=== PATIENT | male | born 1945 | race Caucasian/White ===

== ENCOUNTER 2019-11-07 04:53 | Inpatient (IN) | payer MEDICARE, OTHER ==
--- NOTE | 2019-11-07 06:02 | ER Document Report ---
ED General - General Stated Complaint: DIFFICULTY BREATHING,CHILLS,MUSCLE ACHES Time Seen by Provider: 11/07/19 05:02 - HPI Notes: 74-year-old male with no past medical history presents with 1 week of gradual onset gradually worsening shortness of breath associated with diffuse chest pain and myalgia. Patient denies having any cardiac history or cardiac risk factors. History severely limited by patient's acute respiratory failure. Patient satting 60% on arrival with good waveform. - Related Data Allergies/Adverse Reactions: No Known Allergies Allergy (Unverified 11/07/19 06:12) Past Medical History - General Information source: Patient - Social History Smoking Status: Unknown if Ever Smoked Family History: Other - pt unable 2/2 acuity Review of Systems - Review of Systems -: Yes ROS unobtainable due to patient's medical condition Physical Exam - Vital signs Vitals: Resp 42 H 11/07/19 05:02 - Notes Notes: PHYSICAL EXAMINATION: GENERAL: Elderly man appearing younger than stated age in good physical conditioning in severe respiratory distress HEAD: Atraumatic, normocephalic. EYES: Pupils equal round and appropriate constriction, sclera anicteric, conjunctiva are normal. ENT: nares patent, moist mucous membranes. NECK: Normal range of motion, supple without lymphadenopathy LUNGS: Diffuse coarse breath sounds, good air movements, no wheezing, severely tachypneic with accessory muscle use and speaking 1 word at a time HEART: Tachycardic, regular rhythm, no murmurs ABDOMEN: Soft, nontender, no guarding, no masses EXTREMITIES: Normal range of motion, no pitting or edema. No cyanosis. NEUROLOGICAL: Awake, alert, moves all extremities spontaneously. PSYCH: Normal mood, normal affect. SKIN: Normal turgor, diaphoretic Course - Re-evaluation Re-evalutation: 11/07/19 06:02 Patient in severe respiratory distress with no past medical history, presentation highly concerning for COVID pneumonia with respiratory failure, r/o bacterial pneumonia, ACS, APE. All intubation materials ready and set up at bedside, but given that COVID 19 patients have had better outcomes when when avoidng early intubation have trialed patient on BiPAP which has significantly improved his work of breathing. Patient still tachypneic to upper 30s but will continue to closely monitor and are prepared for intubation. Patient accepted to ICU by [facility]. I made sure that patient spoke to his son who was the only person who pt requested to speak to before possibly being intubated or unable to speak. The patient was evaluated during the global COVID-19 pandemic and that diagnosis was suspected/considered upon their initial presentation. Their evaluation, treatment and testing was consistent with current guidelines for patients who present with complaints or symptoms that may be related to COVID-19. 11/07/19 06:23 Patient status remains tenuous but remains improved on BiPAP. Evaluated in ED by ICU [facility] Smith who is bringing him over to ICU now. Patient's son has been updated. - Vital Signs Vital signs: Temp Pulse Resp BP Pulse Ox 97.9 F 101 H 18 110/74 94 11/11/19 05:00 11/11/19 14:05 11/11/19 14:05 11/11/19 14:00 11/11/19 14:05 - Laboratory Result Diagrams: 11/11/19 04:12 11/11/19 04:12 Laboratory results interpreted by me: 11/07/19 11/07/19 11/07/19 06:00 06:00 06:00 WBC 16.1 H RDW 14.5 H Lymph % (Auto) 6.6 L Absolute Neuts (auto) 13.9 H Seg Neutrophils % 86.5 H Carbon Dioxide 14 L Anion Gap 22 H Creatinine 1.52 H Est GFR ( Amer) 55 L Est GFR (MDRD) Non-Af 45 L Glucose 244 H Lactic Acid 10.5 H Total Bilirubin 1.7 H Direct Bilirubin 0.6 H AST 75 H Alkaline Phosphatase 146 H NT-Pro-B Natriuret Pep 11/07/19 06:00 WBC RDW Lymph % (Auto) Absolute Neuts (auto) Seg Neutrophils % Carbon Dioxide Anion Gap Creatinine Est GFR ( Amer) Est GFR (MDRD) Non-Af Glucose Lactic Acid Total Bilirubin Direct Bilirubin AST Alkaline Phosphatase NT-Pro-B Natriuret Pep 88207 H - EKG Interpretation by Me Additional EKG results interpreted by me: 11/07/19 05:25 Heart rate 125, sinus tachycardia, diffuse ST depressions, no significant ST e levations, QTc 427 11/07/19 06:20 Repeat EKG, heart rate 122, sinus tachycardia, diffuse ST depressions no significant change from initial EKG Critical Care Note - Critical Care Note Total time excluding time spent on procedures (mins): 40 - Time spent performing numerous reassessments of patient in severe acute respiratory distress Discharge - Discharge Clinical Impression: Pneumonia due to COVID-19 virus Respiratory failure Qualifiers: Chronicity: acute Respiratory failure complication: hypoxia Qualified Code(s): J96.01 - Acute respiratory failure with hypoxia Disposition: ADMITTED INPATIENT Admitting Provider: Osito ([employer] Transfer [employer]) Unit Admitted: ICU
[2019-11-07 06:31] LABS: ABSOLUTE BASOPHILS # (AUTO) 0.1 10^3/uL (0.0-0.2); ABSOLUTE LYMPHOCYTES (AUTO) 1.1 10^3/uL (0.5-4.7); ABSOLUTE NEUT (AUTO) 13.9 10^3/uL (1.7-8.2); BASOPHILS % (AUTO) 0.6 % (0-2); EOSINOPHILS % (AUTO) 0.1 % (0-6); HEMATOCRIT 50.4 % (37.9-51.0); HEMOGLOBIN 16.5 g/dL (13.5-17.0); LYMPHOCYTES % (AUTO) 6.6 % (13-45); MEAN CORPUSCULAR HEMOGLOBIN 31.3 pg (27.0-33.4); MEAN CORPUSCULAR HGB CONC 32.7 g/dL (32.0-36.0); MEAN CORPUSCULAR VOLUME 96 fl (80-97); MONOCYTES % (AUTO) 6.2 % (3-13); PLATELET COUNT 172 10^3/uL (150-450); RED BLOOD COUNT 5.28 10^6/uL (4.35-5.55); RED CELL DISTRIBUTION WIDTH 14.5 % (11.5-14.0); SEGMENTED NEUTROPHILS % (AUTO) 86.5 % (42-78); TOTAL CELLS COUNTED % (AUTO) 100 %; WHITE BLOOD COUNT 16.1 10^3/uL (4.0-10.5)
--- NOTE | 2019-11-07 06:33 | RADIOLOGY REPORT (SQ) ---
EXAM DESCRIPTION: XR CHEST 1 VIEW COMPLETED DATE/TME: 11/07/2019 05:25 CLINICAL HISTORY: 74 years, Male, CHF COMPARISON: None. NUMBER OF VIEWS: 1 TECHNIQUE: Portable chest LIMITATIONS: None. FINDINGS: The heart size is normal. Osteopenia. Interstitial and airspace opacities bilaterally. No pneumothorax IMPRESSION: Mixed interstitial and airspace opacities bilaterally could reflect pulmonary edema or pneumonia copyright 2011 [employer]- All Rights Reserved
[2019-11-07 06:48] LABS: ALBUMIN 4.2 g/dL (3.5-5.0); ALKALINE PHOSPHATASE 146 U/L (38-126); ASPARTATE AMINO TRANSFERASE 75 U/L (17-59); BILIRUBIN,DIRECT 0.6 mg/dL (0.0-0.4); BILIRUBIN,TOTAL 1.7 mg/dL (0.2-1.3); BLOOD UREA NITROGEN 18 mg/dL (7-20); CALCIUM 9.2 mg/dL (8.4-10.2); GLUCOSE 244 mg/dL (75-110); TOTAL PROTEIN 7.4 g/dL (6.3-8.2)
[2019-11-07 06:53] LABS: CARBON DIOXIDE 14 mmol/L (22-30); CHLORIDE 103 mmol/L (98-107)
[2019-11-07 06:55] LABS: ANION GAP 22 (5-19)
[2019-11-07 07:03] LABS: TROPONIN I 2.06 ng/mL
[2019-11-07 07:09] LABS: ARTERIAL BLOOD FIO2 100%; ARTERIAL BLOOD H2CO3 0.84 mmol/L (1.05-1.35); ARTERIAL BLOOD HCO3 12.9 mmol/L (20-24); ARTERIAL BLOOD O2 SATURATION 97.3 % (94-98); ARTERIAL BLOOD PH 7.28 (7.35-7.45); ARTERIAL BLOOD TOTAL CO2 13.7 mmol/L (23-27)
--- NOTE | 2019-11-07 07:27 | EKG REPORT ---
SEVERITY:- ABNORMAL ECG - SINUS TACHYCARDIA PROBABLE LEFT ATRIAL ABNORMALITY NONSPECIFIC INTRAVENTRICULAR CONDUCTION DELAY LOW VOLTAGE IN FRONTAL LEADS ST DEPRESSION, CONSIDER ISCHEMIA, LAT LEADS : Confirmed by: Ashutosh Haque MD 07-Nov-2019 07:25:59
--- NOTE | 2019-11-07 07:27 | EKG REPORT ---
SEVERITY:- ABNORMAL ECG - SINUS TACHYCARDIA PROBABLE LEFT ATRIAL ABNORMALITY NONSPECIFIC INTRAVENTRICULAR CONDUCTION DELAY ST DEPRESSION, CONSIDER ISCHEMIA, LAT LEADS : Confirmed by: Ashutosh Haque MD 07-Nov-2019 07:26:50
--- NOTE | 2019-11-07 07:47 | CRITICAL CARE ADMISSION REPORT ---
HPI Date:: 11/07/19 Time:: 07:15 Reason for ICU Reason:: Respiratory failure, pneumonia Admission Date/Time & PCP: Admission Date/Time: 11/07/19 06:22 Primary Care Provider: VALARIE: Mr. Bernal is a 74-year-old gentleman with no known past medical history other than tobacco abuse of 1 pack/day since childhood as per his son. He has been active and independent and cares for his ailing . Patient developed short ness of breath, diffuse chest pain and myalgia over the past 24 hours and presented to the emergency department. SPO2 upon arrival was 60%. He was placed on BiPAP and has since dramatically improved his oxygenation (FiO2 100%). I was called by the emergency room physician to evaluate Mr. Bernal for possible admission to the intensive care unit. Chest x-ray shows bilateral patchy opacities consistent with pneumonia. Chest x-ray has similar pattern to that of previous COVID-19 patients. He has been admitted to the intensive care unit for acute hypoxemic respiratory failure in the setting of pneumonia possibly related to COVID-19. History obtained from:: Patient, son, emergency room physician. - Diagnosis/Plan (1) Pneumonia due to COVID-19 virus Is this a current diagnosis for this admission?: Yes Plan: Chest x-ray, symptoms and history consistent with COVID-19 viral pneumonia. Elevated lactic acid level possibly related to profound hypoxemia which was corrected just prior to lab draw. -Rapid test for COVID-19 -Repeat labs late this morning to re-evaluate. -WBC only mildly elevated. Although I believe his lactic acid level and elevated troponins are likely due to demand hypoxemia, we will begin fluids while awaiting repeat labs. Patient remains hemodynamically stable. (2) Respiratory failure Qualifiers: Chronicity: acute Respiratory failure complication: hypoxia Qualified Code(s): J96.01 - Acute respiratory failure with hypoxia Is this a current diagnosis for this admission?: Yes Plan: Continue BiPAP: IPAP 16, EPAP 5. Fi02 currently at 100%. Wean as tolerated to maintain SPO2 between 88 and 95%. When able to wean to 40 to 50% FiO2, we will transition to facemask or nasal cannula. Repeat CXR in AM. Repeat ABG this evening. Past Medical History Medical History: None Psychiatric Medical History: Denies: Depression Social/Family History - Social History Smoking Status: Current Every Day Smoker Cigarettes Packs Per Day: 1 Hx Recreational Drug Use: No Drugs: None - Medication/Allergies Allergies/Adverse Reactions: No Known Allergies Allergy (Unverified 11/07/19 06:12) Review of Systems Constitutional: PRESENT: fatigue, weakness Respiratory: PRESENT: cough, dyspnea, other - Pleuritic chest pain Physical Exam Vital Signs: Temp Pulse Resp BP Pulse Ox 98 F 130 H 52 H 141/108 H 98 11/07/19 06:57 11/07/19 06:57 11/07/19 06:57 11/07/19 06:57 11/07/19 06:57 Intake & Output 11/06/19 11/07/19 11/08/19 06:59 06:59 06:59 Weight 74 kg Weight/Height Weight 74 kg Height 5 ft 9 in General appearance: PRESENT: mild distress Head exam: PRESENT: atraumatic, normocephalic Eye exam: PRESENT: EOMI, PERRLA Ear exam: PRESENT: normal external ear exam. ABSENT: drainage Mouth exam: PRESENT: dry mucosa, neck supple Neck exam: PRESENT: full ROM. ABSENT: JVD Respiratory exam: PRESENT: decreased breath sounds, rhonchi, symmetrical. ABSENT: accessory muscle use Cardiovascular exam: PRESENT: RRR, +S1, +S2 Pulses: PRESENT: normal carotid pulses, +2 pedal pulses bilateral GI/Abdominal exam: PRESENT: normal bowel sounds. ABSENT: ascites, distended Extremities exam: PRESENT: full ROM. ABSENT: pedal edema Musculoskeletal exam: PRESENT: ambulatory, full ROM, normal inspection Neurological exam: PRESENT: alert, altered, awake, oriented to person, oriented to place, oriented to time, oriented to situation, CN II-XII grossly intact. ABSENT: motor sensory deficit Psychiatric exam: PRESENT: appropriate affect Skin exam: PRESENT: intact. ABSENT: skin tears Laboratory/Radiographs Laboratory Results: 11/07/19 06:00 11/07/19 06:00 11/07/19 11/07/19 11/07/19 06:00 06:00 06:00 WBC 16.1 H RBC 5.28 Hgb 16.5 Hct 50.4 MCV 96 MCH 31.3 MCHC 32.7 RDW 14.5 H Plt Count 172 Seg Neutrophils % 86.5 H Carbonic Acid HCO3/H2CO3 Ratio ABG pH ABG pCO2 ABG pO2 ABG HCO3 ABG O2 Saturation ABG Base Excess FiO2 Sodium 138.6 Potassium 4.0 Chloride 103 Carbon Dioxide 14 L Anion Gap 22 H BUN 18 Creatinine 1.52 H Est GFR ( Amer) 55 L Glucose 244 H Lactic Acid 10.5 H Calcium 9.2 Total Bilirubin 1.7 H AST 75 H Alkaline Phosphatase 146 H Total Protein 7.4 Albumin 4.2 11/07/19 06:40 WBC RBC Hgb Hct MCV MCH MCHC RDW Plt Count Seg Neutrophils % Carbonic Acid 0.84 L HCO3/H2CO3 Ratio 15:1 ABG pH 7.28 L ABG pCO2 28.0 L ABG pO2 106.0 H ABG HCO3 12.9 L ABG O2 Saturation 97.3 ABG Base Excess -12.0 FiO2 100% Sodium Potassium Chloride Carbon Dioxide Anion Gap BUN Creatinine Est GFR ( Amer) Glucose Lactic Acid Calcium Total Bilirubin AST Alkaline Phosphatase Total Protein Albumin 11/07/19 06:00 Troponin I 2.060 NT-Pro-B Natriuret Pep 13575 H Impressions: Chest X-Ray 11/07/19 05:25 IMPRESSION: Mixed interstitial and airspace opacities bilaterally could reflect pulmonary edema or pneumonia copyright 2011 [employer]- All Rights Reserved All labs, radiographs, diagnostic studies and EKGs were personally reviewed: Yes In addition, reports of radiographic and diagnostic studies were read: Yes Critical Time Critical Time (minutes): 65 -: The care of a critically ill patient is dynamic. This note represents a static moment in the admission process. Orders and treatments may be given simultaneously and urgently, and time is not parts sales representative of the treatment process. This patient requires Critical Care secondary to life threatening organ or limb dysfunction. Without Critical Care services, the patient is at risk for increased mortality and morbidity.
[2019-11-07] MEDS ORDERED: RINGERS SOLUTION,LACTATED 1,000 ML IV ONE ×2 (07:54→20:19)
[2019-11-07] MEDS: RINGERS SOLUTION,LACTATED 1,000 ML IV PRN ×2 (09:44→20:26)
[2019-11-07] MEDS ORDERED: SUCCINYLCHOLINE CHLORIDE INJ 200 MG/10 ML VIAL ONE (10:05)
[2019-11-07] MEDS ORDERED: ETOMIDATE INJ/PF 20 MG/10 ML SDV IV ONE (10:05)
[2019-11-07] MEDS ORDERED: METOPROLOL TARTRATE PF/INJ 5 MG/5 ML SDV IV PRN (12:35)
[2019-11-07] MEDS ORDERED: METOPROLOL TARTRATE PF/INJ 5 MG/5 ML SDV IV ONE (12:35)
[2019-11-07] MEDS ORDERED: EPINEPHRINE INJ/PF 1 MG/1 ML AMPULE ONE (12:43)
[2019-11-07] MEDS: DEXAMETHASONE SOD PHOSPHATE INJ 4 MG/1 ML VIAL IV SCH ×3 (12:43→23:15)
[2019-11-07] MEDS ORDERED: NORMAL SALINE 1000 ML 1,000 ML IV ONE (13:45)
[2019-11-07] MEDS ORDERED: HEPARIN SOD (PORCINE) 5,000 UNIT/ML 1 ML VIAL SUBCUT SCH (14:00)
[2019-11-07 15:25] LABS: ARTERIAL BLOOD BASE EXCESS -7.5 mmol/L; ARTERIAL BLOOD FIO2 100%; ARTERIAL BLOOD HCO3 15.6 mmol/L (20-24); ARTERIAL BLOOD O2 SATURATION 98.7 % (94-98); ARTERIAL BLOOD PCO2 26.6 mmHg (35-45); ARTERIAL BLOOD PH 7.39 (7.35-7.45); ARTERIAL BLOOD PO2 135.1 mmHg (80-100); ARTERIAL BLOOD TOTAL CO2 16.4 mmol/L (23-27)
--- NOTE | 2019-11-07 16:31 | XCELERA REPORT ---
[address] [address] Transthoracic Echocardiogram Report Name: FCO ALMAGUER Age: 74 yrs Gender: Male : 1945 Patient Status: Inpatient Patient Location: ICU^603^A Study Date: 11/07/2019 12:40 PM Height: 69 in Weight: 160 lb BSA: 1.9 m2 Procedure: A two-dimensional transthoracic echocardiogram with color flow and Doppler was performed. The study was technically limited with all images being suboptimal in quality. Images were not obtained from all of the standard acoustic windows due to the limited scope of the study. Reason For Study: change in ECG w/ elevated troponin. History: Abnormal EKG / Elevated Troponin. Ordering Physician: NAM SANTOS Performed By: Aleyda Vásquez Interpretation Summary A two-dimensional transthoracic echocardiogram with color flow and Doppler was performed. The study was technically limited with all images being suboptimal in quality. Images were not obtained from all of the standard acoustic windows due to the limited scope of the study. The left ventricle is normal in size. There is normal left ventricular wall thickness. No 'True apical 2 chamber views' obyained..Hence cannot comment on the piacal and basal inferior wall, and the apical and Basal anterior dutton.The Mid LV dutton,the IVS,anterosetum and lateral dutton contract normally.In limited views LVEF is greater than 65%. Doppler measurements suggest normal left ventricular diastolic function There is no thrombus. No ASD ,VSD or PFO seen. The right ventricle is moderately dilated. The right ventricular systolic function is mild to moderately reduced. The right atrium is mild to moderately dilated. The left atrium is mildly dilated. There is no evidence of mitral valve prolapse. There is no vegetation seen on the mitral valve. There is no mitral valve stenosis. Eccentric posteriorly directed moderate MR. There is no aortic valvular vegetation. There is no aortic valve stenosis There is no LVOT obstruction. No aortic regurgitation is present. There is no tricuspid stenosis. There is a moderate to severe amount of tricuspid regurgitation There is servere pulmonary hypertension by echo RVSP is at least 75 mm og Hg , with atleast RA mean of 20. The pulmonic valve is not well visualized. There is no pulmonic valvular stenosis. There is no pulmonic valvular regurgitation. The inferior vena cava appeared dilated and did not change with respiration (RAP > 20 mmHg) There is no pericardial effusion. MMode/2D Measurements & Calculations RVDd: 2.3 cm LVIDd: 4.8 cm FS: 29.5 % Ao root diam: 2.3 cm IVSd: 0.94 cm LVIDs: 3.4 cm EDV(Teich): 105.3 ml Ao root area: 4.0 cm2 LVPWd: 1.0 cm ESV(Teich): 46.0 ml EF(Teich): 56.3 % Doppler Measurements & Calculations MV E max marcial: MV V2 max: MV dec slope: Ao V2 max: 127.6 cm/sec 327.5 cm/sec 1016 cm/sec2 68.3 cm/sec MV A max marcial: MV max PG: MV dec time: Ao max P.5 cm/sec 42.9 mmHg 0.13 sec 2.1 mmHg MV E/A: 3.0 MV V2 mean: 261.4 cm/sec MV mean P.7 mmHg MV V2 VTI: 71.6 cm LV V1 max PG: PA V2 max: TR max marcial: 0.75 mmHg 55.3 cm/sec 321.3 cm/sec LV V1 max: PA max P.2 mmHgTR max P.3 mmHg 43.2 cm/sec Left Ventricle The left ventricle is normal in size. There is normal left ventricular wall thickness. No 'True apical 2 chamber views' obyained..Hence cannot comment on the piacal and basal inferior wall, and the apical and Basal anterior dutton.The Mid LV dutton,the IVS,anterosetum and lateral dutton contract normally.In limited views LVEF is greater than 65%. Doppler measurements suggest normal left ventricular diastolic function. There is no thrombus. No ASD ,VSD or PFO seen. Right Ventricle The right ventricle is moderately dilated. The right ventricular systolic function is mild to moderately reduced. Atria The right atrium is mild to moderately dilated. The left atrium is mildly dilated. Mitral Valve There is no evidence of mitral valve prolapse. There is no vegetation seen on the mitral valve. There is no mitral valve stenosis. Eccentric posteriorly directed moderate MR. Aortic Valve There is no aortic valvular vegetation. There is no aortic valve stenosis. There is no LVOT obstruction. No aortic regurgitation is present. Tricuspid Valve There is no tricuspid stenosis. There is a moderate to severe amount of tricuspid regurgitation. There is servere pulmonary hypertension by echo. RVSP is at least 75 mm og Hg , with atleast RA mean of 20. Pulmonic Valve The pulmonic valve is not well visualized. There is no pulmonic valvular stenosis. There is no pulmonic valvular regurgitation. Great Vessels The aortic root is not well visualized but is probably normal size. The inferior vena cava appeared dilated and did not change with respiration (RAP > 20 mmHg). Effusions There is no pericardial effusion. : NAM SANTOS, Hannah
[2019-11-07] MEDS ORDERED: DILTIAZEM HCL/D5W 125 MG/125 ML RTUINJ IV ONE (16:55)
[2019-11-07] MEDS ORDERED: DILTIAZEM HCL INJ 25 MG/5 ML VIAL ONE (16:55)
[2019-11-07] MEDS ORDERED: LORAZEPAM INJ 2 MG/1 ML VIAL ONE (17:02)
[2019-11-07 17:21] LABS: APPEARANCE,URINE CLOUDY; BILIRUBIN,URINE NEGATIVE (NEGATIVE); COLOR,URINE AMBER; GLUCOSE, URINE 50 mg/dL (NEGATIVE); KETONES,URINE TRACE mg/dL (NEGATIVE); LEUKOCYTE ESTERASE,URINE NEGATIVE (NEGATIVE); NITRITE,URINE NEGATIVE (NEGATIVE); PROTEIN,URINE 100 mg/dL (NEGATIVE); URINE SPECIFIC GRAVITY 1.019
[2019-11-07] MEDS ORDERED: DILTIAZEM HCL/D5W 125 MG/125 ML RTUINJ IV PRN (17:22)
[2019-11-07] MEDS ORDERED: DILTIAZEM HCL INJ 25 MG/5 ML VIAL IV ONE (17:30)
[2019-11-07] MEDS ORDERED: LORAZEPAM INJ 2 MG/1 ML VIAL IV ONE (17:30)
[2019-11-07] MEDS ORDERED: DIGOXIN INJ 0.5 MG/2 ML AMPULE ONE (17:41)
[2019-11-07] MEDS ORDERED: ENOXAPARIN SODIUM INJ 80 MG/0.8 ML DISP.SYRIN SUBCUT SCH ×2 (17:45→23:00)
[2019-11-07] MEDS ORDERED: DIGOXIN INJ 0.5 MG/2 ML AMPULE IV ONE (18:00)
[2019-11-07] MEDS ORDERED: VANCOMYCIN HCL 0 MG in DEXTROSE 5%-WATER 250 ML IV NR (19:15)
[2019-11-07 19:27] LABS: PROTHROMBIN TIME 17.3 SEC (11.4-15.4)
[2019-11-07 19:28] LABS: PARTIAL THROMBOPLASTIN TIME 33.6 SEC (23.5-35.8)
--- NOTE | 2019-11-07 19:50 | PDOC CONSULTATION ---
Consultation-Blank Consultation: CARDIOLOGY CONSULTATION by Dr. Hannah Fowler on 11/07/2019. Patient seen at 3 PM. 60 minutes spent on this patient with more than 50% time spent in direct patient care REASON FOR CONSULTATION: Patient admitted with pneumonia with elevated troponin I and tachycardia CONSULT REQUESTING all PHYSICIAN: Dr. Escalante, earth moving technician. HISTORY OF PRESENT ILLNESS: Patient is a pleasant 74-year-old male with no major medical history of concern in the past who is an ongoing smoker and probably has untreated COPD who was taking care of his sick . He states that 24 hours prior to admission he had sudden onset of shortness of breath with cough productive of yellowish sputum with wheezing and some chest pain which increased with deep breathing. He was brought to the emergency room where he was found to be hypoxic with O2 sats in the 60s. Subsequent to being placed on BiPAP and FiO2 of 100% his O2 sats improved. He does have some EKG changes which showed generalized ischemia and tachycardia. His initial troponin I will be came back abnormal and subsequently brenton to 6. He also had a short run of junctional tachycardia. He also was hypotensive requiring IV fluids. His blood pressure did come up to about 110 and the patient was given 5 mg of Cardizem and started on a Cardizem drip at 2.5 mg/h. The patient states a chest x-ray is suspicious of COVID pneumonia and the patient's COVID testing is awaited. Along with the patient's fever and shortness of breath he had myalgia and generalized fatigue and malaise and sore throat, but no POSITIVE lost sensation of smell or taste. His echocardiogram showed normal left ventricular systolic function of the left ventricle and severe pulmonary hypertension with right ventricular systolic pressure of at least 75 mmHg. He has moderate to severe tricuspid regurgitation and eccentric moderate mitral regurgitation. The patient denies any prior history of OK or anginal symptoms. Although he denies any history of chronic kidney disease the patient's GFR is reduced to 45 mL/min which could be secondary to the patient being volume depleted due to acute infection. Past Medical History Medical History: None Psychiatric Medical History: Denies: Depression Social/Family History - Social History Smoking Status: Current Every Day Smoker Cigarettes Packs Per Day: 1 Hx Recreational Drug Use: No Drugs: None Current Medications Generic Name Dose Route Start Last Admin Trade Name Freq PRN Reason Stop Dose Admin Dexamethasone Sodium Phosphate 4 mg 08/06/20 12:00 11/07/19 23:15 Decadron Inj 4 Mg/Ml Vial IV 12/07/19 11:59 4 mg Q6 GENOVEVA Administration Enoxaparin Sodium 75 mg 11/07/19 23:00 11/07/19 23:12 Lovenox Inj 80 Mg/0.8 Ml Disp.Syrin SUBCUT 12/07/19 22:59 75 mg DAILY@2300 GENOVEVA Administration Lactated Ringer's 1,000 mls @ 100 mls/hr 11/07/19 07:54 11/07/19 20:26 Lactated Ringers 1000 Ml Iv Soln IV 12/07/19 07:53 100 mls/hr CONTINUOUS PRN Administration THIS MED IS NOT "PRN" Diltiazem HCl 125 mg in 125 mls @ 0 mls/hr 11/07/19 17:22 11/07/19 22:40 Cardizem Rtu Inj 125 Mg-D5w 125 Ml Premix IV 12/07/19 17:21 0 mg/hr CONTINUOUS PRN 0 mls/hr THIS MED IS NOT "PRN" Titration Protocol Titrate Piperacillin Sod/Tazobactam 100 mls @ 200 mls/hr 11/07/19 19:30 11/07/19 23:47 Sod 3.375 gm/ Sodium Chloride IV 11/14/19 19:29 200 mls/hr Q6 GENOVEVA 200 mls/hr Administration Vancomycin HCl 1,250 mg/ 250 mls @ 166.667 mls/hr 11/07/19 22:00 11/07/19 23:27 Dextrose IV 11/14/19 21:59 Infused QHS GENOVEVA Infusion Metoprolol Tartrate 5 mg 11/07/19 12:35 Lopressor Inj/Pf 5 Mg/5 Ml Sdv IV 12/07/19 12:34 Q2HP PRN HR > 120. Sodium Chloride 2.5 ml 11/07/19 14:00 11/07/19 21:56 Saline Flush 2.5 Ml Monoject Prefil Syrin IV 12/07/19 13:59 2.5 ml Q8 GENOVEVA Administration Discontinued Medications Generic Name Dose Route Start Last Admin Trade Name Freq PRN Reason Stop Dose Admin Digoxin Confirm 11/07/19 17:41 11/07/19 18:07 Lanoxin Inj 0.5 Mg/2 Ml Ampule Administered 11/07/19 17:42 Not Given Dose 0.5 mg .ROUTE .STK-MED ONE Digoxin 0.125 mg 11/07/19 18:00 11/07/19 18:00 Lanoxin Inj 0.5 Mg/2 Ml Ampule IV 11/07/19 18:01 0.125 mg NOW ONE Administration Diltiazem HCl Confirm 11/07/19 16:55 11/07/19 17:34 Cardizem Inj 25 Mg/5 Ml Vial Administered 11/07/19 16:56 Not Given Dose 25 mg .ROUTE .STK-MED ONE Diltiazem HCl 5 mg 11/07/19 17:30 11/07/19 16:59 Cardizem Inj 25 Mg/5 Ml Vial IV 11/07/19 17:31 5 mg NOW ONE Administration Enoxaparin Sodium 75 mg 11/07/19 17:45 11/07/19 20:16 Lovenox Inj 80 Mg/0.8 Ml Disp.Syrin SUBCUT 12/07/19 17:44 Not Given DAILY GENOVEVA Epinephrine HCl Confirm 11/07/19 12:43 11/07/19 16:46 Epinephrine-Pf Inj 1 Mg/Ml (1:1000) Ampule Administered 11/07/19 12:44 Not Given Dose 1 mg .ROUTE .STK-MED ONE Etomidate 20 mg 11/07/19 10:05 Amidate Inj/Pf 20 Mg/10 Ml Sdv IV 11/07/19 10:06 .STK-MED ONE Heparin Sodium (Porcine) 5,000 unit 11/07/19 14:00 11/07/19 16:45 Heparin Inj 5,000 Units/Ml 1 Ml Vial SUBCUT 12/07/19 13:59 5,000 unit Q8 GENOVEVA Administration Lactated Ringer's 1,000 mls @ 0 mls/hr 11/07/19 07:54 11/07/19 10:45 Lactated Ringers 1000 Ml Iv Soln IV 11/07/19 07:55 Infused BOLUS ONE Infusion Wide Open Sodium Chloride 1,000 mls @ 0 mls/hr 11/07/19 13:45 11/07/19 13:55 Nacl 0.9% 1000 Ml Iv Soln IV 11/07/19 13:46 Infused BOLUS ONE Infusion Wide Open Diltiazem HCl Confirm 11/07/19 16:55 11/07/19 17:34 Cardizem Rtu Inj 125 Mg-D5w 125 Ml Premix Administered 11/07/19 16:56 Not Given Dose 125 mg in 125 mls @ ud IV .STK-MED ONE Lactated Ringer's 1,000 mls @ 0 mls/hr 11/07/19 20:19 11/07/19 21:41 Lactated Ringers 1000 Ml Iv Soln IV 11/07/19 20:20 Infused BOLUS ONE Infusion Wide Open Lorazepam Confirm 11/07/19 17:02 11/07/19 17:35 Ativan Inj 2 Mg/1 Ml Vial Administered 11/07/19 17:03 Not Given Dose 2 mg .ROUTE .STK-MED ONE Lorazepam 0.5 mg 11/07/19 17:30 11/07/19 17:07 Ativan Inj 2 Mg/1 Ml Vial IV 11/07/19 17:31 0.5 mg NOW ONE Administration Metoprolol Tartrate 5 mg 11/07/19 12:35 11/07/19 12:40 Lopressor Inj/Pf 5 Mg/5 Ml Sdv IV 11/07/19 12:36 Not Given NOW ONE Succinylcholine Chloride 200 mg 11/07/19 10:05 Anectine Inj 200 Mg/10 Ml Vial .ROUTE 11/07/19 10:06 .STK-MED ONE - Medication/Allergies Allergies/Adverse Reactions: No Known Allergies Allergy (Unverified 11/07/19 06:12) RESUSCITATION STATUS: Patient is a full code. The patient's son is a surrogate healthcare decision maker. Review of Systems Constitutional: PRESENT: fatigue, weakness Respiratory: PRESENT: cough, dyspnea, other - Pleuritic chest pain head: No history of headaches or head injury. EYES: No history of amblyopia diplopia. No history of amaurosis fugax. EARS: No history of vertigo. The patient states that he is slightly hard of hearing in the right ear. Left left ear hearing is normal. NOSE: No history of hayfever. No history of nosebleeds. MOUTH: Patient says he is thirsty there is no altered taste sensation. There is no bleeding from the gums. THROAT: There is no odynophagia or dysphagia. SKIN: There is no skin rashes. There is no petechia or ecchymosis there is no pruritus or yellowish discoloration of the skin. NECK: There is no neck pain or neck stiffness. LUNGS: The patient has cough and dyspnea as mentioned earlier with wheezing and productive cough. There is no prior history of treatment for COPD although physical examination suggest COPD. He has no sick sleep apnea. No history of pulmonary embolism. CARDIAC: No history of hypertension or hyperlipidemia. No history of OK or anginal symptoms. No prior history of cardiac arrhythmia. No leg edema he does have orthopnea but no PND. Denies palpitations. ENDOCRINE: No history of diabetes mellitus or thyroid disease no history of polydipsia polyuria. No history of heat or cold intolerance. RENAL: No prior history of chronic kidney disease. With the patient's renal function is compromised most likely secondary to volume depletion/prerenal state. No hematuria pyuria or dysuria. No symptoms suggestive UTI. CARE MGR: No history of TIA CVA. No history of headaches or migraines or seizures. VASCULAR: No history of calf or buttock claudication. No history of DVT. HEMATOLOGICAL: No history of bleeding bleeding dyscrasias. No history of clotting disorders. GI: No history of GERD. No history of GI bleed. No history of fatty food intolerance. Denies abdominal pain. No history of hepatitis or cirrhosis. PHYSICAL EXAMINATION: The patient is a frail build but appears to be well- nourished. He is on the BiPAP at present he is mild to moderate respiratory difficulty. Selected Entries 11/07/19 11/07/19 11/07/19 14:45 15:27 16:50 Heart Rate ( 94 Monitors) Respiratory 25 H Rate Blood Pressure 91/80 L Blood Pressure 83 Mean O2 Sat by Pulse 100 Oximetry Fraction of 100 100 Inspired Oxygen (FIO2) 11/07/19 11/07/19 16:51 16:52 Heart Rate ( 140 Monitors) Respiratory 36 H Rate Blood Pressure 112/86 H Blood Pressure 94 Mean O2 Sat by Pulse 95 Oximetry Fraction of Inspired Oxygen (FIO2) Head: Is atraumatic normocephalic. EYES: Pupils are equal round regular reactiv e light and accommodation. ENT is negative. Neck. Supple. There is there is no JVD. Carotids are equal there is no bruits. There is no lymphadenopathy. Lungs: There is no accessory muscle respiration use. Trachea central. There is a few dry coarse crackles in the right mid zone. There is diminished air entry and prolonged expiration. There is no rales of CHF. On percussion there is hyp erresonance. HEART: S1-S2 is heard. There is no S3 gallop. There is no S4 gallop.. Systolic murmur left sternal border and the apex there is no rub. There is murmur of mitral regurgitation tricuspid regurgitation present. There is no aortic stenosis murmur. ABDOMEN: Soft. Nontender there is no hepatosplenomegaly. Bowel sounds are well heard. EXTREMITIES: Femorals are well felt. Leg pulses well felt. There is no pedal edema. There is no femoral bruits. There is no cyanosis or clubbing. There is no DVT or cellulitis. There is no calf tenderness. CARE MGR: The patient is conscious awake alert oriented x3 with no focal deficits. PSYCHIATRIC: The patient judgment insight are intact his affect is normal. The patient's initial EKG shows sinus tachycardia with PVCs and APCs. Diffuse ST depressions is consistent with ischemia. Subsequent EKG shows sinus tachycardia with diffuse ST depression consistent with ischemia. The patient's third EKG shows sinus rhythm nonspecific T changes inferior leads. Labs- Entire Visit 11/07/19 11/07/19 11/07/19 06:00 06:00 06:00 WBC 16.1 H RBC 5.28 Hgb 16.5 Hct 50.4 MCV 96 MCH 31.3 MCHC 32.7 RDW 14.5 H Plt Count 172 Lymph % (Auto) 6.6 L Wallace % (Auto) 6.2 Eos % (Auto) 0.1 Baso % (Auto) 0.6 Absolute Neuts (auto) 13.9 H Absolute Lymphs (auto) 1.1 Absolute Monos (auto) 1.0 Absolute Eos (auto) 0.0 Absolute Basos (auto) 0.1 Seg Neutrophils % 86.5 H PT INR APTT Carbonic Acid HCO3/H2CO3 Ratio ABG pH ABG pCO2 ABG pO2 ABG HCO3 ABG Total CO2 ABG O2 Saturation ABG Base Excess FiO2 Sodium 138.6 Potassium 4.0 Chloride 103 Carbon Dioxide 14 L Anion Gap 22 H BUN 18 Creatinine 1.52 H Est GFR ( Amer) 55 L Est GFR (Non-Af Amer) Est GFR (MDRD) Non-Af 45 L Glucose 244 H Lactic Acid 10.5 H Calcium 9.2 Total Bilirubin 1.7 H Direct Bilirubin 0.6 H Neonat Total Bilirubin Not Reportable Neonat Direct Bilirubin Not Reportable Neonat Indirect Bili Not Reportable AST 75 H ALT 43 Alkaline Phosphatase 146 H Troponin I NT-Pro-B Natriuret Pep Total Protein 7.4 Albumin 4.2 EGFR Urine Color Urine Appearance Urine pH Ur Specific [place] Urine Protein Urine Glucose (UA) Urine Ketones Urine Blood Urine Nitrite Urine Bilirubin Urine Urobilinogen Ur Leukocyte Esterase Urine WBC (Auto) Urine RBC (Auto) U Hyaline Cast (Auto) Urine Bacteria (Auto) Squamous Epi Cells Auto Urine Mucus (Auto) Urine Ascorbic Acid SARS-CoV-2 (PCR) 11/07/19 11/07/19 11/07/19 06:00 06:40 11:12 WBC RBC Hgb Hct MCV MCH MCHC RDW Plt Count Lymph % (Auto) Wallace % (Auto) Eos % (Auto) Baso % (Auto) Absolute Neuts (auto) Absolute Lymphs (auto) Absolute Monos (auto) Absolute Eos (auto) Absolute Basos (auto) Seg Neutrophils % PT INR APTT Carbonic Acid 0.84 L HCO3/H2CO3 Ratio 15:1 ABG pH 7.28 L ABG pCO2 28.0 L ABG pO2 106.0 H ABG HCO3 12.9 L ABG Total CO2 13.7 L ABG O2 Saturation 97.3 ABG Base Excess -12.0 FiO2 100% Sodium Potassium Chloride Carbon Dioxide Anion Gap BUN Creatinine Est GFR ( Amer) Est GFR (Non-Af Amer) Est GFR (MDRD) Non-Af Glucose Lactic Acid Calcium Total Bilirubin Direct Bilirubin Neonat Total Bilirubin Neonat Direct Bilirubin Neonat Indirect Bili AST ALT Alkaline Phosphatase Troponin I 2.060 6.020 NT-Pro-B Natriuret Pep 76733 H Total Protein Albumin EGFR Urine Color Urine Appearance Urine pH Ur Specific [place] Urine Protein Urine Glucose (UA) Urine Ketones Urine Blood Urine Nitrite Urine Bilirubin Urine Urobilinogen Ur Leukocyte Esterase Urine WBC (Auto) Urine RBC (Auto) U Hyaline Cast (Auto) Urine Bacteria (Auto) Squamous Epi Cells Auto Urine Mucus (Auto) Urine Ascorbic Acid SARS-CoV-2 (PCR) 11/07/19 11/07/19 11/07/19 14:45 17:06 19:02 WBC RBC Hgb Hct MCV MCH MCHC RDW Plt Count Lymph % (Auto) Wallace % (Auto) Eos % (Auto) Baso % (Auto) Absolute Neuts (auto) Absolute Lymphs (auto) Absolute Monos (auto) Absolute Eos (auto) Absolute Basos (auto) Seg Neutrophils % PT 17.3 H INR 1.40 APTT 33.6 Carbonic Acid 0.80 L HCO3/H2CO3 Ratio 19:1 ABG pH 7.39 ABG pCO2 26.6 L ABG pO2 135.1 H ABG HCO3 15.6 L ABG Total CO2 16.4 L ABG O2 Saturation 98.7 H ABG Base Excess -7.5 FiO2 100% Sodium Potassium Chloride Carbon Dioxide Anion Gap BUN Creatinine Est GFR ( Amer) Est GFR (Non-Af Amer) Est GFR (MDRD) Non-Af Glucose Lactic Acid Calcium Total Bilirubin Direct Bilirubin Neonat Total Bilirubin Neonat Direct Bilirubin Neonat Indirect Bili AST ALT Alkaline Phosphatase Troponin I NT-Pro-B Natriuret Pep Total Protein Albumin EGFR Urine Color JUAN Urine Appearance CLOUDY Urine pH 5.0 Ur Specific [place] 1.019 Urine Protein 100 H Urine Glucose (UA) 50 H Urine Ketones TRACE H Urine Blood NEGATIVE Urine Nitrite NEGATIVE Urine Bilirubin NEGATIVE Urine Urobilinogen 4.0 H Ur Leukocyte Esterase NEGATIVE Urine WBC (Auto) 2 Urine RBC (Auto) 1 U Hyaline Cast (Auto) 34 Urine Bacteria (Auto) TRACE Squamous Epi Cells Auto 1 Urine Mucus (Auto) RARE Urine Ascorbic Acid 40 H SARS-CoV-2 (PCR) 11/07/19 11/07/19 11/07/19 20:13 20:13 20:13 WBC RBC Hgb Hct MCV MCH MCHC RDW Plt Count Lymph % (Auto) Wallace % (Auto) Eos % (Auto) Baso % (Auto) Absolute Neuts (auto) Absolute Lymphs (auto) Absolute Monos (auto) Absolute Eos (auto) Absolute Basos (auto) Seg Neutrophils % PT INR APTT Carbonic Acid HCO3/H2CO3 Ratio ABG pH ABG pCO2 ABG pO2 ABG HCO3 ABG Total CO2 ABG O2 Saturation ABG Base Excess FiO2 Sodium Cancelled Potassium Cancelled Chloride Cancelled Carbon Dioxide Cancelled Anion Gap Cancelled BUN Cancelled Creatinine Cancelled Est GFR ( Amer) Cancelled Est GFR (Non-Af Amer) Cancelled Est GFR (MDRD) Non-Af Cancelled Glucose Cancelled Lactic Acid Cancelled Calcium Cancelled Total Bilirubin Direct Bilirubin Neonat Total Bilirubin Neonat Direct Bilirubin Neonat Indirect Bili AST ALT Alkaline Phosphatase Troponin I Cancelled NT-Pro-B Natriuret Pep Cancelled Total Protein Albumin EGFR Cancelled Urine Color Urine Appearance Urine pH Ur Specific [place] Urine Protein Urine Glucose (UA) Urine Ketones Urine Blood Urine Nitrite Urine Bilirubin Urine Urobilinogen Ur Leukocyte Esterase Urine WBC (Auto) Urine RBC (Auto) U Hyaline Cast (Auto) Urine Bacteria (Auto) Squamous Epi Cells Auto Urine Mucus (Auto) Urine Ascorbic Acid SARS-CoV-2 (PCR) 11/07/19 11/07/19 11/07/19 21:00 21:00 21:00 WBC RBC Hgb Hct MCV MCH MCHC RDW Plt Count Lymph % (Auto) Wallace % (Auto) Eos % (Auto) Baso % (Auto) Absolute Neuts (auto) Absolute Lymphs (auto) Absolute Monos (auto) Absolute Eos (auto) Absolute Basos (auto) Seg Neutrophils % PT INR APTT Carbonic Acid HCO3/H2CO3 Ratio ABG pH ABG pCO2 ABG pO2 ABG HCO3 ABG Total CO2 ABG O2 Saturation ABG Base Excess FiO2 Sodium 135.8 L Potassium 4.7 Chloride 105 Carbon Dioxide 21 L Anion Gap 10 BUN 32 H Creatinine 1.59 H Est GFR ( Amer) 52 L Est GFR (Non-Af Amer) Est GFR (MDRD) Non-Af 43 L Glucose 141 H Lactic Acid 4.9 H Calcium 8.6 Total Bilirubin Direct Bilirubin Neonat Total Bilirubin Neonat Direct Bilirubin Neonat Indirect Bili AST ALT Alkaline Phosphatase Troponin I 5.440 NT-Pro-B Natriuret Pep 48932 H Total Protein Albumin EGFR Urine Color Urine Appearance Urine pH Ur Specific [place] Urine Protein Urine Glucose (UA) Urine Ketones Urine Blood Urine Nitrite Urine Bilirubin Urine Urobilinogen Ur Leukocyte Esterase Urine WBC (Auto) Urine RBC (Auto) U Hyaline Cast (Auto) Urine Bacteria (Auto) Squamous Epi Cells Auto Urine Mucus (Auto) Urine Ascorbic Acid SARS-CoV-2 (PCR) 11/07/19 21:55 WBC RBC Hgb Hct MCV MCH MCHC RDW Plt Count Lymph % (Auto) Wallace % (Auto) Eos % (Auto) Baso % (Auto) Absolute Neuts (auto) Absolute Lymphs (auto) Absolute Monos (auto) Absolute Eos (auto) Absolute Basos (auto) Seg Neutrophils % PT INR APTT Carbonic Acid HCO3/H2CO3 Ratio ABG pH ABG pCO2 ABG pO2 ABG HCO3 ABG Total CO2 ABG O2 Saturation ABG Base Excess FiO2 Sodium Potassium Chloride Carbon Dioxide Anion Gap BUN Creatinine Est GFR ( Amer) Est GFR (Non-Af Amer) Est GFR (MDRD) Non-Af Glucose Lactic Acid Calcium Total Bilirubin Direct Bilirubin Neonat Total Bilirubin Neonat Direct Bilirubin Neonat Indirect Bili AST ALT Alkaline Phosphatase Troponin I NT-Pro-B Natriuret Pep Total Protein Albumin EGFR Urine Color Urine Appearance Urine pH Ur Specific [place] Urine Protein Urine Glucose (UA) Urine Ketones Urine Blood Urine Nitrite Urine Bilirubin Urine Urobilinogen Ur Leukocyte Esterase Urine WBC (Auto) Urine RBC (Auto) U Hyaline Cast (Auto) Urine Bacteria (Auto) Squamous Epi Cells Auto Urine Mucus (Auto) Urine Ascorbic Acid SARS-CoV-2 (PCR) NEGATIVE Chest X-Ray 11/07/19 00:00 IMPRESSION: Bilateral pulmonary infiltrates with no significant interval change Chest X-Ray 11/07/19 05:25 IMPRESSION: Mixed interstitial and airspace opacities bilaterally could reflect pulmonary edema or pneumonia copyright 2011 [employer]- All Rights Reserved IMPRESSION/RECOMMENDATION: 1. Elevated troponin I most likely secondary to supply demand mismatch secondary to patient's hypoxemia and also the patient's junctional tachycardia. Although with the patient's EKG showing nonspecific T changes in inferior leads cannot exclude non-ST relation OK. The patient's blood pressure is low hence we will hold off on the patient's beta-vikki or nitrates. In view the patient renal function would start the patient off Lovenox 1 mg/kg subcutaneously every 24 hours in view of the patient renal function. Would increase this to 1 mg/kg subcutaneously every 12 hours. Would trend the patient's troponin. Later once the patient's pneumonia resolves and the patient's back to baseline then would recommend that the patient have a IV Lexiscan Cardiolite stress test. 2. Abnormal EKG: Secondary to hypoxemia and tachycardia versus secondary to a fixed lesion or combined lesion and hypoxemia and tachycardia causing ischemic EKG changes. Recommend starting the patient on aspirin 81 mg p.o. daily. 3. Junctional tachycardia.: See if we can get the patient on a small dose of Cardizem. This will also help the patient's pulmonary hypertension. 4. Pneumonia very suspicious for COVID pneumonia. Patient on antibiotics. 5. Dehydration with prerenal state: Continue IV fluids aggressively note that the patient's arterial systolic function is normal. 6. Severe pulmonary hypertension: Suspect this will be much less once the pneumonia is resolved. Cardizem may help this to a certain extent. We will also later start the patient on a PANCHO inhibitor or ARB. 7. Moderately severe tricuspid regurgitation 8.. COPD by exam 9. History of tobacco abuse: Tobacco cessation counseling done 3 minutes spent on this. 8. Moderate eccentric mitral regurgitation: EKG reviewed. Medication changes and medical management of cardiac problems discussed with earth moving technician. Medical decision making is of high complexity. 60 minutes spent as patient more than 50% of time spent in direct patient care.
--- NOTE | 2019-11-07 20:04 | EKG REPORT ---
SEVERITY:- ABNORMAL ECG - SINUS RHYTHM PROBABLE LEFT ATRIAL ABNORMALITY LOW VOLTAGE IN FRONTAL LEADS ABNORMAL T, CONSIDER ISCHEMIA, INFERIOR LEADS : Confirmed by: Ashutosh Haque MD 07-Nov-2019 20:03:37
--- NOTE | 2019-11-07 20:42 | RADIOLOGY REPORT (SQ) ---
EXAM DESCRIPTION: XR CHEST 1 VIEW COMPLETED DATE/TME: 11/07/2019 00:00 CLINICAL HISTORY: 74 years Male respiratory failure COMPARISON: 11/07/2019 5:56 AM. FINDINGS: Cardiac size based on contour stable. Bilateral pulmonary infiltrates worse in the right upper lobe and perihilar region. Overall there has been no significant interval change. Small effusions are not excluded. No pneumothorax. IMPRESSION: Bilateral pulmonary infiltrates with no significant interval change
[2019-11-07] MEDS: PIPERACILLIN SODIUM/TAZOBACTAM 3.375 GM in NORMAL SALINE 100 ML IV SCH ×2 (20:44→23:47)
[2019-11-07 21:25] LABS: ANION GAP 10 (5-19); BLOOD UREA NITROGEN 32 mg/dL (7-20); CALCIUM 8.6 mg/dL (8.4-10.2); CARBON DIOXIDE 21 mmol/L (22-30); CHLORIDE 105 mmol/L (98-107); GLUCOSE 141 mg/dL (75-110); POTASSIUM 4.7 mmol/L (3.6-5.0)
[2019-11-07 21:36] LABS: TROPONIN I 5.44 ng/mL
[2019-11-07] MEDS: VANCOMYCIN HCL 1,250 MG in DEXTROSE 5%-WATER 250 ML IV SCH (21:57)
[2019-11-08] MEDS ORDERED: RINGERS SOLUTION,LACTATED 1,000 ML IV ONE ×2 (00:30→06:35)
[2019-11-08 04:28] LABS: HEMATOCRIT 44.8 % (37.9-51.0); MEAN CORPUSCULAR HEMOGLOBIN 31.2 pg (27.0-33.4); MEAN CORPUSCULAR HGB CONC 33.5 g/dL (32.0-36.0); MEAN CORPUSCULAR VOLUME 93 fl (80-97); PLATELET COUNT 108 10^3/uL (150-450); RED BLOOD COUNT 4.82 10^6/uL (4.35-5.55); RED CELL DISTRIBUTION WIDTH 14.3 % (11.5-14.0); WHITE BLOOD COUNT 12.1 10^3/uL (4.0-10.5)
[2019-11-08 04:44] LABS: ALKALINE PHOSPHATASE 96 U/L (38-126); ANION GAP 11 (5-19); ASPARTATE AMINO TRANSFERASE 210 U/L (17-59); BILIRUBIN,DIRECT 0.3 mg/dL (0.0-0.4); BLOOD UREA NITROGEN 36 mg/dL (7-20); CALCIUM 8.5 mg/dL (8.4-10.2); CARBON DIOXIDE 18 mmol/L (22-30); CHLORIDE 106 mmol/L (98-107); GLUCOSE 133 mg/dL (75-110); POTASSIUM 4.7 mmol/L (3.6-5.0); TOTAL PROTEIN 5.9 g/dL (6.3-8.2)
[2019-11-08] MEDS: DEXAMETHASONE SOD PHOSPHATE INJ 4 MG/1 ML VIAL IV SCH ×3 (06:14→17:14)
[2019-11-08] MEDS: RINGERS SOLUTION,LACTATED 1,000 ML IV PRN ×3 (06:15→22:40)
[2019-11-08] MEDS: PIPERACILLIN SODIUM/TAZOBACTAM 3.375 GM in NORMAL SALINE 100 ML IV SCH ×3 (06:18→17:13)
[2019-11-08 06:45] LABS: APPEARANCE,URINE SLIGHTLY-CLOUDY; BILIRUBIN,URINE NEGATIVE (NEGATIVE); GLUCOSE, URINE NEGATIVE (NEGATIVE); KETONES,URINE NEGATIVE (NEGATIVE); LEUKOCYTE ESTERASE,URINE NEGATIVE (NEGATIVE); NITRITE,URINE NEGATIVE (NEGATIVE); PROTEIN,URINE 30 mg/dL (NEGATIVE); URINE SPECIFIC GRAVITY 1.031
[2019-11-08 06:48] LABS: COLOR,URINE DARK YELLOW
--- NOTE | 2019-11-08 08:14 | RADIOLOGY REPORT (SQ) ---
EXAM DESCRIPTION: CHEST SINGLE VIEW IMAGES COMPLETED DATE/TIME: 11/08/2019 6:09 am REASON FOR STUDY: Respiratory Failure COMPARISON: 11/07/2019 NUMBER OF VIEWS: One view. TECHNIQUE: Single frontal radiographic image of the chest acquired. LIMITATIONS: None. FINDINGS: LUNGS AND PLEURA: Persistent bilateral alveolar infiltrates. MEDIASTINUM AND HILAR STRUCTURES: Stable heart size and mediastinal structures. HEART AND VASCULAR STRUCTURES: Stable appearance. BONES: No acute findings. HARDWARE: None in the chest. OTHER: No other significant finding. IMPRESSION: STABLE APPEARANCE OF THE CHEST. TECHNICAL DOCUMENTATION: JOB ID: [id number] 2010 [employer]- All Rights Reserved Reading location - IP/workstation name: [email or web address]
--- NOTE | 2019-11-08 11:19 | PDOC CRITICAL CARE PROG REPORT ---
General Date:: 11/08/19 ICU Day:: 22 Hospital Day:: 2 Resuscitation Status: Full Code Events in the past 12 to 24 Hours:: Rapid COVID test negative. [facility] test pending. Overall no change Review of systems relevant to events:: Pulmonary, CV Reason for ICU Addmission:: Respiratory failure, pneumonia, risk of intubation - Medications: Medications reviewed and adjusted accordingly: Yes Vasopressors:: None Sedation:: None Physical Exam Vital Signs: Temp Pulse Resp BP Pulse Ox 99.7 F 120 H 33 H 88/66 L 90 L 11/08/19 10:44 11/08/19 05:00 11/08/19 10:44 11/08/19 10:44 11/08/19 10:14 Intake & Output 11/07/19 11/08/19 11/09/19 06:59 06:59 06:59 Intake Total 6464 Output Total 480 50 Balance 5984 -50 Weight 74 kg 78.1 kg Weight/Height Weight 78.1 kg Height 5 ft 9 in General appearance: PRESENT: no acute distress, thin Head exam: PRESENT: atraumatic, normocephalic Eye exam: PRESENT: conjunctiva pink, EOMI, PERRLA. ABSENT: scleral icterus Ear exam: PRESENT: normal external ear exam Mouth exam: PRESENT: moist, tongue midline Respiratory exam: PRESENT: clear to auscultation tasia, decreased breath sounds. ABSENT: rales, rhonchi, wheezes Cardiovascular exam: PRESENT: irregular rhythm, tachycardia GI/Abdominal exam: PRESENT: normal bowel sounds, soft. ABSENT: distended, guarding, mass, organolmegaly, rebound, tenderness Rectal exam: PRESENT: deferred Extremities exam: PRESENT: full ROM. ABSENT: calf tenderness, clubbing, pedal edema Neurological exam: PRESENT: alert, awake, oriented to person, oriented to place, oriented to time, oriented to situation, CN II-XII grossly intact. ABSENT: m otor sensory deficit Psychiatric exam: PRESENT: appropriate affect, normal mood. ABSENT: homicidal ideation, suicidal ideation Skin exam: PRESENT: dry, intact, warm. ABSENT: cyanosis, rash Tubes/Lines: PRESENT: Other - Bipap. Laboratory/Radiographs Laboratory Results: 11/08/19 04:06 11/08/19 04:06 08/06/20 08/06/20 08/06/20 14:45 17:06 20:13 WBC RBC Hgb Hct MCV MCH MCHC RDW Plt Count Carbonic Acid 0.80 L HCO3/H2CO3 Ratio 19:1 ABG pH 7.39 ABG pCO2 26.6 L ABG pO2 135.1 H ABG HCO3 15.6 L ABG O2 Saturation 98.7 H ABG Base Excess -7.5 FiO2 100% Sodium Cancelled Potassium Cancelled Chloride Cancelled Carbon Dioxide Cancelled Anion Gap Cancelled BUN Cancelled Creatinine Cancelled Est GFR ( Amer) Cancelled Est GFR (Non-Af Amer) Cancelled Glucose Cancelled Lactic Acid Calcium Cancelled Magnesium Total Bilirubin AST Alkaline Phosphatase Total Protein Albumin Urine Color JUAN Urine Appearance CLOUDY Urine pH 5.0 Ur Specific [place] 1.019 Urine Protein 100 H Urine Glucose (UA) 50 H Urine Ketones TRACE H Urine Blood NEGATIVE Urine Nitrite NEGATIVE Ur Leukocyte Esterase NEGATIVE Urine WBC (Auto) 2 Urine RBC (Auto) 1 11/07/19 11/07/19 11/07/19 20:13 21:00 21:00 WBC RBC Hgb Hct MCV MCH MCHC RDW Plt Count Carbonic Acid HCO3/H2CO3 Ratio ABG pH ABG pCO2 ABG pO2 ABG HCO3 ABG O2 Saturation ABG Base Excess FiO2 Sodium 135.8 L Potassium 4.7 Chloride 105 Carbon Dioxide 21 L Anion Gap 10 BUN 32 H Creatinine 1.59 H Est GFR ( Amer) 52 L Est GFR (Non-Af Amer) Glucose 141 H Lactic Acid Cancelled 4.9 H Calcium 8.6 Magnesium Total Bilirubin AST Alkaline Phosphatase Total Protein Albumin Urine Color Urine Appearance Urine pH Ur Specific [place] Urine Protein Urine Glucose (UA) Urine Ketones Urine Blood Urine Nitrite Ur Leukocyte Esterase Urine WBC (Auto) Urine RBC (Auto) 11/08/19 11/08/19 11/08/19 04:06 04:06 05:58 WBC 12.1 H RBC 4.82 Hgb 15.0 Hct 44.8 MCV 93 MCH 31.2 MCHC 33.5 RDW 14.3 H Plt Count 108 L Carbonic Acid HCO3/H2CO3 Ratio ABG pH ABG pCO2 ABG pO2 ABG HCO3 ABG O2 Saturation ABG Base Excess FiO2 Sodium 135.3 L Potassium 4.7 Chloride 106 Carbon Dioxide 18 L Anion Gap 11 BUN 36 H Creatinine 1.39 H Est GFR ( Amer) > 60 Est GFR (Non-Af Amer) Glucose 133 H Lactic Acid Calcium 8.5 Magnesium 2.0 Total Bilirubin 1.0 AST 210 H Alkaline Phosphatase 96 Total Protein 5.9 L Albumin 3.0 L Urine Color DARK YELLOW Urine Appearance SLIGHTLY-CLOUDY Urine pH 5.0 Ur Specific [place] 1.031 Urine Protein 30 H Urine Glucose (UA) NEGATIVE Urine Ketones NEGATIVE Urine Blood LARGE H Urine Nitrite NEGATIVE Ur Leukocyte Esterase NEGATIVE Urine WBC (Auto) 3 Urine RBC (Auto) 152 11/07/19 11/07/19 11/07/19 06:00 11:12 20:13 Troponin I 2.060 6.020 Cancelled NT-Pro-B Natriuret Pep 24219 H Cancelled 11/07/19 11/08/19 11/08/19 21:00 04:06 09:26 Troponin I 5.440 3.060 NT-Pro-B Natriuret Pep 97858 H 49627 H Impressions: Chest X-Ray 11/08/19 06:00 IMPRESSION: STABLE APPEARANCE OF THE CHEST. All labs, radiographs, diagnostic studies and EKGs were personally reviewed: Yes In addition, reports of radiographic and diagnostic studies were read: Yes Assessment and Plan - Diagnosis (1) Atrial fibrillation with RVR Is this a current diagnosis for this admission?: Yes Plan: Already on cardizem drip. Dr. Fairchild has seen, may adjust dose or add another agent. (2) Pneumonia due to COVID-19 virus Is this a current diagnosis for this admission?: Yes Plan: Thus far his rapid test is negative. Awaiting [facility] test. (3) Respiratory failure Qualifiers: Chronicity: acute Respiratory failure complication: hypoxia Qualified Code(s): J96.01 - Acute respiratory failure with hypoxia Is this a current diagnosis for this admission?: Yes Plan: He is still in need of Bipap 70% FiO2. (4) Multilobar lung infiltrate Is this a current diagnosis for this admission?: Yes Plan: Nearly all lobes effected an antibiotics after the [id number] COVID test. Plan Summary: Keep in the ICU both for rapid afib which is likely secondary to lung issue. Keep antibiotics for a week, when FiO2 lower than 50% will consider downgrade. Critical Time Critical Time (minutes): 35 Level of Care: ICU Anticipated discharge: Home with Homehealth Anticipated DC Timeframe: Other -: 1. The care of a critical patient is a dynamic process. This note is a credit representative synopsis but static in nature. The timeframe for treatments given in order is not necessarily the actual time these treatments may have been done. 2. This patient requires critical care secondary to ongoing requirements for therapy not offered or safe outside the critical care environment. Transfer to a lower level of care will result in altered life or limb morbidity and mortality. 3. Multidisciplinary rounds completed. 4. ABCDE bundle addressed.
[2019-11-08] MEDS ORDERED: DIGOXIN INJ 0.5 MG/2 ML AMPULE IV ONE ×2 (12:00→22:15)
[2019-11-08] MEDS ORDERED: RINGERS SOLUTION,LACTATED 500 ML IV ONE (13:30)
--- NOTE | 2019-11-08 15:13 | EKG REPORT ---
SEVERITY:- ABNORMAL ECG - ATRIAL FIBRILLATION LOW VOLTAGE IN FRONTAL LEADS BORDERLINE REPOL ABNORMALITY, INF-LAT LEADS : Confirmed by: Ashutosh Haque MD 08-Nov-2019 15:12:47
--- NOTE | 2019-11-08 18:47 | Progress Note ---
Provider Note Provider Note: CARDIOLOGY PROGRESS NOTE by Dr. Calos Pendleton on 11/08/2019. OBJECTIVE: The patient COVID negative test x2 [the send out and the rapid both were negative]. The patient continues to have cough and requires BiPAP but the O2 saturation is come down to 60%. He is now developed atrial fibrillation. He denies any true anginal symptoms. He does have orthopnea but no PND. There is no ventricle arrhythmia seen on the monitor. There is no bleeding on Lovenox. There is no TIA CVA symptoms. His blood pressure is tenuous precluding the continuation of Cardizem drip. Physical EXAMINATION: The patient is a thin build but well-built. In mild respiratory distress. Selected Entries 11/08/19 11/08/19 11/08/19 15:08 15:44 15:59 Temperature 99.7 F Heart Rate ( 134 Monitors) Respiratory 30 H Rate Blood Pressure 102/75 Blood Pressure 84 Mean O2 Sat by Pulse 95 Oximetry Oxygen Delivery Bi-pap Method ( includes room air) Fraction of 50 Inspired Oxygen (FIO2) Head: Is atraumatic normocephalic. EYES: Pupils are equal round regular reactive light and accommodation. ENT is negative. Neck. Supple. There is there is no JVD. Carotids are equal there is no bruits. There is no lymphadenopathy. Lungs: There is no accessory muscle respiration use. Trachea central. There is a few dry coarse crackles in the right mid zone. There is diminished air entry and prolonged expiration. There is no rales of CHF. On percussion there is hyperresonance. HEART: S1-S2 is heard. S1 is of variable intensity. There is no S3 gallop. There is no S4 gallop.. Systolic murmur left sternal border and the apex there is no rub. There is murmur of mitral regurgitation tricuspid regurgitation present. There is no aortic stenosis murmur. ABDOMEN: Soft. Nontender there is no hepatosplenomegaly. Bowel sounds are well heard. EXTREMITIES: Femorals are well felt. Leg pulses well felt. There is no pedal edema. There is no femoral bruits. There is no cyanosis or clubbing. There is no DVT or cellulitis. There is no calf tenderness. SPUDDER: The patient is conscious awake alert oriented x3 with no focal deficits. PSYCHIATRIC: The patient judgment insight are intact his affect is normal. Labs- All tests 24 hr 11/07/19 11/08/19 11/08/19 09:35 04:06 04:06 WBC 12.1 H RBC 4.82 Hgb 15.0 Hct 44.8 MCV 93 MCH 31.2 MCHC 33.5 RDW 14.3 H Plt Count 108 L Sodium 135.3 L Potassium 4.7 Chloride 106 Carbon Dioxide 18 L Anion Gap 11 BUN 36 H Creatinine 1.39 H Est GFR ( Amer) > 60 Est GFR (MDRD) Non-Af 50 L Glucose 133 H Calcium 8.5 Magnesium 2.0 Total Bilirubin 1.0 Direct Bilirubin 0.3 Neonat Total Bilirubin Not Reportable Neonat Direct Bilirubin Not Reportable Neonat Indirect Bili Not Reportable AST 210 H ALT 134 H Alkaline Phosphatase 96 Troponin I NT-Pro-B Natriuret Pep Total Protein 5.9 L Albumin 3.0 L Urine Color Urine Appearance Urine pH Ur Specific [place] Urine Protein Urine Glucose (UA) Urine Ketones Urine Blood Urine Nitrite Urine Bilirubin Urine Urobilinogen Ur Leukocyte Esterase Urine WBC (Auto) Urine RBC (Auto) U Hyaline Cast (Auto) Urine Mucus (Auto) Urine Ascorbic Acid COVID-19 Source NASOPHARYNGEAL COVID-19 (SOFI) NOT DETECTED 11/08/19 11/08/19 11/08/19 04:06 05:58 09:26 WBC RBC Hgb Hct MCV MCH MCHC RDW Plt Count Sodium Potassium Chloride Carbon Dioxide Anion Gap BUN Creatinine Est GFR ( Amer) Est GFR (MDRD) Non-Af Glucose Calcium Magnesium Total Bilirubin Direct Bilirubin Neonat Total Bilirubin Neonat Direct Bilirubin Neonat Indirect Bili AST ALT Alkaline Phosphatase Troponin I 3.060 NT-Pro-B Natriuret Pep 83759 H Total Protein Albumin Urine Color DARK YELLOW Urine Appearance SLIGHTLY-CLOUDY Urine pH 5.0 Ur Specific [place] 1.031 Urine Protein 30 H Urine Glucose (UA) NEGATIVE Urine Ketones NEGATIVE Urine Blood LARGE H Urine Nitrite NEGATIVE Urine Bilirubin NEGATIVE Urine Urobilinogen 2.0 H Ur Leukocyte Esterase NEGATIVE Urine WBC (Auto) 3 Urine RBC (Auto) 152 U Hyaline Cast (Auto) 1 Urine Mucus (Auto) RARE Urine Ascorbic Acid 40 H COVID-19 Source COVID-19 (SOFI) 11/08/19 18:00 WBC RBC Hgb Hct MCV MCH MCHC RDW Plt Count Sodium Potassium Chloride Carbon Dioxide Anion Gap BUN Creatinine Est GFR ( Amer) Est GFR (MDRD) Non-Af Glucose Calcium Magnesium Total Bilirubin Direct Bilirubin Neonat Total Bilirubin Neonat Direct Bilirubin Neonat Indirect Bili AST ALT Alkaline Phosphatase Troponin I NT-Pro-B Natriuret Pep Total Protein Albumin Urine Color YELLOW Urine Appearance SLIGHTLY-CLOUDY Urine pH 5.0 Ur Specific [place] 1.030 Urine Protein 30 H Urine Glucose (UA) NEGATIVE Urine Ketones TRACE H Urine Blood LARGE H Urine Nitrite NEGATIVE Urine Bilirubin NEGATIVE Urine Urobilinogen NEGATIVE Ur Leukocyte Esterase NEGATIVE Urine WBC (Auto) 3 Urine RBC (Auto) 55 U Hyaline Cast (Auto) 3 Urine Mucus (Auto) RARE Urine Ascorbic Acid 40 H COVID-19 Source COVID-19 (SOFI) Chest X-Ray 11/07/19 00:00 IMPRESSION: Bilateral pulmonary infiltrates with no significant interval change Chest X-Ray 11/07/19 05:25 IMPRESSION: Mixed interstitial and airspace opacities bilaterally could reflect pulmonary edema or pneumonia copyright 2011 [employer]- All Rights Reserved Chest X-Ray 11/08/19 06:00 IMPRESSION: STABLE APPEARANCE OF THE CHEST. EKG: ATRIAL FIBRILLATION [LVOLF] . LOW VOLTAGE IN FRONTAL LEADS [REPBIL] . BORDERLINE REPOL ABNORMALITY, INF-LAT LEADS IMPRESSION/RECOMMENDATION: 1. Elevated troponin I most likely secondary to supply demand mismatch secondary to patient's hypoxemia and also the patient's junctional tachycardia. Although with the patient's EKG showing nonspecific T changes in inferior leads cannot exclude non-ST elevation [place]. The patient's troponin is trending down. The patient's blood pressure is low hence we will hold off on the patient's beta-vikki or nitrates. Would increase this to 1 mg/kg subcutaneously every 12 hours. Would trend the patient's troponin. Later once the patient's pneumonia resolves and the patient's back to baseline then would recommend that the patient have a IV Lexiscan Cardiolite stress test. 2. Abnormal EKG: Secondary to hypoxemia and tachycardia versus secondary to a fixed lesion or combined lesion and hypoxemia and tachycardia causing ischemic EKG changes. Recommend starting the patient on aspirin 81 mg p.o. daily. 3. NEW onset ATRIAL fibrillation: No recurrence of junctional tachycardia. At present patient with atrial fibrillation.: See if we can get the patient on a small dose of Cardizem. But due to patient's blood pressure being low unable to place the patient on Cardizem. Will give digoxin to control the patient's heart rate. Will increase the patient's Lovenox to 1 mg/kg subcutaneously every 12 hours. This will also help the patient's pulmonary hypertension. 4. Pneumonia Patient on antibiotics. The patient is COVID19 test were negative x2 5. Dehydration with prerenal state: Continue IV fluids aggressively note that the patient's arterial systolic function is normal. 6. Severe pulmonary hypertension: Suspect this will be much less once the pneumonia is resolved. Cardizem may help this to a certain extent. We will also later start the patient on a PANCHO inhibitor or ARB. 7. Moderately severe tricuspid regurgitation 8.. COPD by exam 9. History of tobacco abuse: Tobacco cessation counseling done 3 minutes spent on this. 8. Moderately is moderate eccentric mitral regurgitation: At the patient's request discussed the patient's echocardiogram and the patient's cardiac status with the patient's son. Medications reviewed. Medications adjusted. Medications, medical decision making and management plan discussed with the automobile club information clerk. Medical decision making is still of high complexity. 40-minute spent as patient more than 50% of time spent in direct patient care. Will follow
[2019-11-08 18:52] LABS: APPEARANCE,URINE SLIGHTLY-CLOUDY; BILIRUBIN,URINE NEGATIVE (NEGATIVE); COLOR,URINE YELLOW; GLUCOSE, URINE NEGATIVE (NEGATIVE); KETONES,URINE TRACE mg/dL (NEGATIVE); LEUKOCYTE ESTERASE,URINE NEGATIVE (NEGATIVE); NITRITE,URINE NEGATIVE (NEGATIVE); PROTEIN,URINE 30 mg/dL (NEGATIVE); UROBILINOGEN,URINE NEGATIVE mg/dL (<2.0)
[2019-11-08] MEDS: VANCOMYCIN HCL 1,250 MG in DEXTROSE 5%-WATER 250 ML IV SCH (22:24)
[2019-11-08] MEDS: ENOXAPARIN SODIUM INJ 80 MG/0.8 ML DISP.SYRIN SUBCUT SCH (22:47)
[2019-11-09] MEDS: PIPERACILLIN SODIUM/TAZOBACTAM 3.375 GM in NORMAL SALINE 100 ML IV SCH ×5 (00:07→23:27)
[2019-11-09] MEDS: DEXAMETHASONE SOD PHOSPHATE INJ 4 MG/1 ML VIAL IV SCH ×3 (00:10→13:11)
[2019-11-09] MEDS: ENOXAPARIN SODIUM INJ 80 MG/0.8 ML DISP.SYRIN SUBCUT SCH ×2 (10:39→21:26)
[2019-11-09] MEDS: RINGERS SOLUTION,LACTATED 1,000 ML IV PRN (10:40)
--- NOTE | 2019-11-09 10:46 | EKG REPORT ---
SEVERITY:- ABNORMAL ECG - ATRIAL FIBRILLATION LOW VOLTAGE IN FRONTAL LEADS BORDERLINE R WAVE PROGRESSION, ANTERIOR LEADS NONSPECIFIC REPOL ABNORMALITY, DIFFUSE LEADS : Confirmed by: Ashutosh Haque MD 09-Nov-2019 10:45:50
[2019-11-09] MEDS ORDERED: METOPROLOL TARTRATE PF/INJ 5 MG/5 ML SDV IV PRN (12:06)
[2019-11-09] MEDS ORDERED: METOPROLOL TARTRATE 25 MG TABLET PO SCH (13:00)
[2019-11-09] MEDS ORDERED: RINGERS SOLUTION,LACTATED 1,000 ML IV PRN (13:07)
[2019-11-09] MEDS ORDERED: ASPIRIN 325 MG TABLET ONE (13:13)
[2019-11-09] MEDS ORDERED: DILTIAZEM HCL 30 MG TABLET ONE (13:13)
[2019-11-09] MEDS ORDERED: BUDESONIDE NEB 0.25 MG/2 ML AMPUL NEB ONE (13:14)
[2019-11-09] MEDS: BUDESONIDE NEB 0.25 MG/2 ML AMPUL NEB SCH ×2 (13:18→20:03)
[2019-11-09] MEDS: IPRATROPIUM/ALBUTEROL 0.5-2.5 MG/3 ML AMPUL NEB SCH ×3 (13:18→20:03)
--- NOTE | 2019-11-09 13:28 | Progress Note ---
Provider Note Provider Note: CARDIOLOGY PROGRESS NOTE by Dr. Hannah Fowler on 11/09/2019. SUBJECTIVE: The patient shortness of breath is improving. He still has some orthopnea but no PND. He denies any chest pain or discomfort. He is no apparent atrial fibrillation and remains in it. His blood pressure is slightly better with the blood pressure being in the low 100s. There is no ventricular arrhythmias seen on the monitor. PHYSICAL EXAMINATION: The patient is of thin build in no acute distress he still on the BiPAP but his oxygen requirement is much less. Selected Entries 11/09/19 11/09/19 11/09/19 13:00 13:01 13:19 Temperature 98.2 F Heart Rate ( 119 Monitors) Respiratory 26 H Rate Blood Pressure 109/91 H Blood Pressure 97 Mean O2 Sat by Pulse 94 Oximetry Fraction of 35 Inspired Oxygen (FIO2) Head: Is atraumatic normocephalic. EYES: Pupils are equal round regular reactive light and accommodation. ENT is negative. Neck. Supple. There is there is no JVD. Carotids are equal there is no bruits. There is no lymphadenopathy. Lungs: There is no accessory muscle respiration use. Trachea central. There is a few dry coarse crackles in the right mid zone. There is diminished air entry and prolonged expiration. There is no rales of CHF. On percussion there is hyperresonance. HEART: S1-S2 is heard. S1 is of variable intensity. There is no S3 gallop. There is no S4 gallop.. Systolic murmur left sternal border and the apex there is no rub. There is murmur of mitral regurgitation tricuspid regurgitation present. There is no aortic stenosis murmur. ABDOMEN: Soft. Nontender there is no hepatosplenomegaly. Bowel sounds are well heard. EXTREMITIES: Femorals are well felt. Leg pulses well felt. There is no pedal edema. There is no femoral bruits. There is no cyanosis or clubbing. There is no DVT or cellulitis. There is no calf tenderness. FRONT END MANAGER: The patient is conscious awake alert oriented x3 with no focal deficits. PSYCHIATRIC: The patient judgment insight are intact his affect is normal. Labs- Entire Visit 11/07/19 11/07/19 11/07/19 06:00 06:00 06:00 WBC 16.1 H RBC 5.28 Hgb 16.5 Hct 50.4 MCV 96 MCH 31.3 MCHC 32.7 RDW 14.5 H Plt Count 172 Lymph % (Auto) 6.6 L [place] % (Auto) 6.2 Eos % (Auto) 0.1 Baso % (Auto) 0.6 Absolute Neuts (auto) 13.9 H Absolute Lymphs (auto) 1.1 Absolute Monos (auto) 1.0 Absolute Eos (auto) 0.0 Absolute Basos (auto) 0.1 Total Counted Seg Neutrophils % 86.5 H Seg Neuts % (Manual) Lymphocytes % (Manual) Monocytes % (Manual) Eosinophils % (Manual) Basophils % (Manual) Abs Neuts (Manual) Abs Lymphs (Manual) Abs Monocytes (Manual) Absolute Eos (Manual) Abs Basophils (Manual) Nucleated RBCs Platelet Estimate Platelet Comment Anisocytosis Ovalocytes PT INR APTT Carbonic Acid HCO3/H2CO3 Ratio ABG pH ABG pCO2 ABG pO2 ABG HCO3 ABG Total CO2 ABG O2 Saturation ABG Base Excess FiO2 Sodium 138.6 Potassium 4.0 Chloride 103 Carbon Dioxide 14 L Anion Gap 22 H BUN 18 Creatinine 1.52 H Est GFR ( Amer) 55 L Est GFR (Non-Af Amer) Est GFR (MDRD) Non-Af 45 L Glucose 244 H Lactic Acid 10.5 H Calcium 9.2 Phosphorus Magnesium Total Bilirubin 1.7 H Direct Bilirubin 0.6 H Neonat Total Bilirubin Not Reportable Neonat Direct Bilirubin Not Reportable Neonat Indirect Bili Not Reportable AST 75 H ALT 43 Alkaline Phosphatase 146 H Troponin I NT-Pro-B Natriuret Pep Total Protein 7.4 Albumin 4.2 EGFR Urine Color Urine Appearance Urine pH Ur Specific [place] Urine Protein Urine Glucose (UA) Urine Ketones Urine Blood Urine Nitrite Urine Bilirubin Urine Urobilinogen Ur Leukocyte Esterase Urine WBC (Auto) Urine RBC (Auto) U Hyaline Cast (Auto) Urine Bacteria (Auto) Squamous Epi Cells Auto Urine Mucus (Auto) Urine Ascorbic Acid Time Trough Drawn Vancomycin Trough Digoxin COVID-19 Source COVID-19 (SOFI) SARS-CoV-2 (PCR) Slides for Path Review 11/07/19 11/07/19 11/07/19 06:00 06:40 09:35 WBC RBC Hgb Hct MCV MCH MCHC RDW Plt Count Lymph % (Auto) [place] % (Auto) Eos % (Auto) Baso % (Auto) Absolute Neuts (auto) Absolute Lymphs (auto) Absolute Monos (auto) Absolute Eos (auto) Absolute Basos (auto) Total Counted Seg Neutrophils % Seg Neuts % (Manual) Lymphocytes % (Manual) Monocytes % (Manual) Eosinophils % (Manual) Basophils % (Manual) Abs Neuts (Manual) Abs Lymphs (Manual) Abs Monocytes (Manual) Absolute Eos (Manual) Abs Basophils (Manual) Nucleated RBCs Platelet Estimate Platelet Comment Anisocytosis Ovalocytes PT INR APTT Carbonic Acid 0.84 L HCO3/H2CO3 Ratio 15:1 ABG pH 7.28 L ABG pCO2 28.0 L ABG pO2 106.0 H ABG HCO3 12.9 L ABG Total CO2 13.7 L ABG O2 Saturation 97.3 ABG Base Excess -12.0 FiO2 100% Sodium Potassium Chloride Carbon Dioxide Anion Gap BUN Creatinine Est GFR ( Amer) Est GFR (Non-Af Amer) Est GFR (MDRD) Non-Af Glucose Lactic Acid Calcium Phosphorus Magnesium Total Bilirubin Direct Bilirubin Neonat Total Bilirubin Neonat Direct Bilirubin Neonat Indirect Bili AST ALT Alkaline Phosphatase Troponin I 2.060 NT-Pro-B Natriuret Pep 12062 H Total Protein Albumin EGFR Urine Color Urine Appearance Urine pH Ur Specific [place] Urine Protein Urine Glucose (UA) Urine Ketones Urine Blood Urine Nitrite Urine Bilirubin Urine Urobilinogen Ur Leukocyte Esterase Urine WBC (Auto) Urine RBC (Auto) U Hyaline Cast (Auto) Urine Bacteria (Auto) Squamous Epi Cells Auto Urine Mucus (Auto) Urine Ascorbic Acid Time Trough Drawn Vancomycin Trough Digoxin COVID-19 Source NASOPHARYNGEAL COVID-19 (SOFI) NOT DETECTED SARS-CoV-2 (PCR) Slides for Path Review 11/07/19 11/07/19 11/07/19 11:12 14:45 17:06 WBC RBC Hgb Hct MCV MCH MCHC RDW Plt Count Lymph % (Auto) [place] % (Auto) Eos % (Auto) Baso % (Auto) Absolute Neuts (auto) Absolute Lymphs (auto) Absolute Monos (auto) Absolute Eos (auto) Absolute Basos (auto) Total Counted Seg Neutrophils % Seg Neuts % (Manual) Lymphocytes % (Manual) Monocytes % (Manual) Eosinophils % (Manual) Basophils % (Manual) Abs Neuts (Manual) Abs Lymphs (Manual) Abs Monocytes (Manual) Absolute Eos (Manual) Abs Basophils (Manual) Nucleated RBCs Platelet Estimate Platelet Comment Anisocytosis Ovalocytes PT INR APTT Carbonic Acid 0.80 L HCO3/H2CO3 Ratio 19:1 ABG pH 7.39 ABG pCO2 26.6 L ABG pO2 135.1 H ABG HCO3 15.6 L ABG Total CO2 16.4 L ABG O2 Saturation 98.7 H ABG Base Excess -7.5 FiO2 100% Sodium Potassium Chloride Carbon Dioxide Anion Gap BUN Creatinine Est GFR ( Amer) Est GFR (Non-Af Amer) Est GFR (MDRD) Non-Af Glucose Lactic Acid Calcium Phosphorus Magnesium Total Bilirubin Direct Bilirubin Neonat Total Bilirubin Neonat Direct Bilirubin Neonat Indirect Bili AST ALT Alkaline Phosphatase Troponin I 6.020 NT-Pro-B Natriuret Pep Total Protein Albumin EGFR Urine Color JUAN Urine Appearance CLOUDY Urine pH 5.0 Ur Specific [place] 1.019 Urine Protein 100 H Urine Glucose (UA) 50 H Urine Ketones TRACE H Urine Blood NEGATIVE Urine Nitrite NEGATIVE Urine Bilirubin NEGATIVE Urine Urobilinogen 4.0 H Ur Leukocyte Esterase NEGATIVE Urine WBC (Auto) 2 Urine RBC (Auto) 1 U Hyaline Cast (Auto) 34 Urine Bacteria (Auto) TRACE Squamous Epi Cells Auto 1 Urine Mucus (Auto) RARE Urine Ascorbic Acid 40 H Time Trough Drawn Vancomycin Trough Digoxin COVID-19 Source COVID-19 (SOFI) SARS-CoV-2 (PCR) Slides for Path Review 11/07/19 11/07/19 11/07/19 19:02 20:13 20:13 WBC RBC Hgb Hct MCV MCH MCHC RDW Plt Count Lymph % (Auto) [place] % (Auto) Eos % (Auto) Baso % (Auto) Absolute Neuts (auto) Absolute Lymphs (auto) Absolute Monos (auto) Absolute Eos (auto) Absolute Basos (auto) Total Counted Seg Neutrophils % Seg Neuts % (Manual) Lymphocytes % (Manual) Monocytes % (Manual) Eosinophils % (Manual) Basophils % (Manual) Abs Neuts (Manual) Abs Lymphs (Manual) Abs Monocytes (Manual) Absolute Eos (Manual) Abs Basophils (Manual) Nucleated RBCs Platelet Estimate Platelet Comment Anisocytosis Ovalocytes PT 17.3 H INR 1.40 APTT 33.6 Carbonic Acid HCO3/H2CO3 Ratio ABG pH ABG pCO2 ABG pO2 ABG HCO3 ABG Total CO2 ABG O2 Saturation ABG Base Excess FiO2 Sodium Cancelled Potassium Cancelled Chloride Cancelled Carbon Dioxide Cancelled Anion Gap Cancelled BUN Cancelled Creatinine Cancelled Est GFR ( Amer) Cancelled Est GFR (Non-Af Amer) Cancelled Est GFR (MDRD) Non-Af Cancelled Glucose Cancelled Lactic Acid Cancelled Calcium Cancelled Phosphorus Magnesium Total Bilirubin Direct Bilirubin Neonat Total Bilirubin Neonat Direct Bilirubin Neonat Indirect Bili AST ALT Alkaline Phosphatase Troponin I NT-Pro-B Natriuret Pep Total Protein Albumin EGFR Cancelled Urine Color Urine Appearance Urine pH Ur Specific [place] Urine Protein Urine Glucose (UA) Urine Ketones Urine Blood Urine Nitrite Urine Bilirubin Urine Urobilinogen Ur Leukocyte Esterase Urine WBC (Auto) Urine RBC (Auto) U Hyaline Cast (Auto) Urine Bacteria (Auto) Squamous Epi Cells Auto Urine Mucus (Auto) Urine Ascorbic Acid Time Trough Drawn Vancomycin Trough Digoxin COVID-19 Source COVID-19 (SOFI) SARS-CoV-2 (PCR) Slides for Path Review 11/07/19 11/07/19 11/07/19 20:13 21:00 21:00 WBC RBC Hgb Hct MCV MCH MCHC RDW Plt Count Lymph % (Auto) [place] % (Auto) Eos % (Auto) Baso % (Auto) Absolute Neuts (auto) Absolute Lymphs (auto) Absolute Monos (auto) Absolute Eos (auto) Absolute Basos (auto) Total Counted Seg Neutrophils % Seg Neuts % (Manual) Lymphocytes % (Manual) Monocytes % (Manual) Eosinophils % (Manual) Basophils % (Manual) Abs Neuts (Manual) Abs Lymphs (Manual) Abs Monocytes (Manual) Absolute Eos (Manual) Abs Basophils (Manual) Nucleated RBCs Platelet Estimate Platelet Comment Anisocytosis Ovalocytes PT INR APTT Carbonic Acid HCO3/H2CO3 Ratio ABG pH ABG pCO2 ABG pO2 ABG HCO3 ABG Total CO2 ABG O2 Saturation ABG Base Excess FiO2 Sodium 135.8 L Potassium 4.7 Chloride 105 Carbon Dioxide 21 L Anion Gap 10 BUN 32 H Creatinine 1.59 H Est GFR ( Amer) 52 L Est GFR (Non-Af Amer) Est GFR (MDRD) Non-Af 43 L Glucose 141 H Lactic Acid 4.9 H Calcium 8.6 Phosphorus Magnesium Total Bilirubin Direct Bilirubin Neonat Total Bilirubin Neonat Direct Bilirubin Neonat Indirect Bili AST ALT Alkaline Phosphatase Troponin I Cancelled NT-Pro-B Natriuret Pep Cancelled Total Protein Albumin EGFR Urine Color Urine Appearance Urine pH Ur Specific [place] Urine Protein Urine Glucose (UA) Urine Ketones Urine Blood Urine Nitrite Urine Bilirubin Urine Urobilinogen Ur Leukocyte Esterase Urine WBC (Auto) Urine RBC (Auto) U Hyaline Cast (Auto) Urine Bacteria (Auto) Squamous Epi Cells Auto Urine Mucus (Auto) Urine Ascorbic Acid Time Trough Drawn Vancomycin Trough Digoxin COVID-19 Source COVID-19 (SOFI) SARS-CoV-2 (PCR) Slides for Path Review 11/07/19 11/07/19 11/08/19 21:00 21:55 04:06 WBC 12.1 H RBC 4.82 Hgb 15.0 Hct 44.8 MCV 93 MCH 31.2 MCHC 33.5 RDW 14.3 H Plt Count 108 L Lymph % (Auto) [place] % (Auto) Eos % (Auto) Baso % (Auto) Absolute Neuts (auto) Absolute Lymphs (auto) Absolute Monos (auto) Absolute Eos (auto) Absolute Basos (auto) Total Counted Seg Neutrophils % Seg Neuts % (Manual) Lymphocytes % (Manual) Monocytes % (Manual) Eosinophils % (Manual) Basophils % (Manual) Abs Neuts (Manual) Abs Lymphs (Manual) Abs Monocytes (Manual) Absolute Eos (Manual) Abs Basophils (Manual) Nucleated RBCs Platelet Estimate Platelet Comment Anisocytosis Ovalocytes PT INR APTT Carbonic Acid HCO3/H2CO3 Ratio ABG pH ABG pCO2 ABG pO2 ABG HCO3 ABG Total CO2 ABG O2 Saturation ABG Base Excess FiO2 Sodium Potassium Chloride Carbon Dioxide Anion Gap BUN Creatinine Est GFR ( Amer) Est GFR (Non-Af Amer) Est GFR (MDRD) Non-Af Glucose Lactic Acid Calcium Phosphorus Magnesium Total Bilirubin Direct Bilirubin Neonat Total Bilirubin Neonat Direct Bilirubin Neonat Indirect Bili AST ALT Alkaline Phosphatase Troponin I 5.440 NT-Pro-B Natriuret Pep 81734 H Total Protein Albumin EGFR Urine Color Urine Appearance Urine pH Ur Specific [place] Urine Protein Urine Glucose (UA) Urine Ketones Urine Blood Urine Nitrite Urine Bilirubin Urine Urobilinogen Ur Leukocyte Esterase Urine WBC (Auto) Urine RBC (Auto) U Hyaline Cast (Auto) Urine Bacteria (Auto) Squamous Epi Cells Auto Urine Mucus (Auto) Urine Ascorbic Acid Time Trough Drawn Vancomycin Trough Digoxin COVID-19 Source COVID-19 (SOFI) SARS-CoV-2 (PCR) NEGATIVE Slides for Path Review 0811/08/19 11/08/19 04:06 04:06 05:58 WBC RBC Hgb Hct MCV MCH MCHC RDW Plt Count Lymph % (Auto) [place] % (Auto) Eos % (Auto) Baso % (Auto) Absolute Neuts (auto) Absolute Lymphs (auto) Absolute Monos (auto) Absolute Eos (auto) Absolute Basos (auto) Total Counted Seg Neutrophils % Seg Neuts % (Manual) Lymphocytes % (Manual) Monocytes % (Manual) Eosinophils % (Manual) Basophils % (Manual) Abs Neuts (Manual) Abs Lymphs (Manual) Abs Monocytes (Manual) Absolute Eos (Manual) Abs Basophils (Manual) Nucleated RBCs Platelet Estimate Platelet Comment Anisocytosis Ovalocytes PT INR APTT Carbonic Acid HCO3/H2CO3 Ratio ABG pH ABG pCO2 ABG pO2 ABG HCO3 ABG Total CO2 ABG O2 Saturation ABG Base Excess FiO2 Sodium 135.3 L Potassium 4.7 Chloride 106 Carbon Dioxide 18 L Anion Gap 11 BUN 36 H Creatinine 1.39 H Est GFR ( Amer) > 60 Est GFR (Non-Af Amer) Est GFR (MDRD) Non-Af 50 L Glucose 133 H Lactic Acid Calcium 8.5 Phosphorus Magnesium 2.0 Total Bilirubin 1.0 Direct Bilirubin 0.3 Neonat Total Bilirubin Not Reportable Neonat Direct Bilirubin Not Reportable Neonat Indirect Bili Not Reportable AST 210 H ALT 134 H Alkaline Phosphatase 96 Troponin I NT-Pro-B Natriuret Pep 22867 H Total Protein 5.9 L Albumin 3.0 L EGFR Urine Color DARK YELLOW Urine Appearance SLIGHTLY-CLOUDY Urine pH 5.0 Ur Specific [place] 1.031 Urine Protein 30 H Urine Glucose (UA) NEGATIVE Urine Ketones NEGATIVE Urine Blood LARGE H Urine Nitrite NEGATIVE Urine Bilirubin NEGATIVE Urine Urobilinogen 2.0 H Ur Leukocyte Esterase NEGATIVE Urine WBC (Auto) 3 Urine RBC (Auto) 152 U Hyaline Cast (Auto) 1 Urine Bacteria (Auto) Squamous Epi Cells Auto Urine Mucus (Auto) RARE Urine Ascorbic Acid 40 H Time Trough Drawn Vancomycin Trough Digoxin COVID-19 Source COVID-19 (SOFI) SARS-CoV-2 (PCR) Slides for Path Review 11/08/19 11/08/19 11/09/19 09:26 18:00 04:24 WBC RBC Hgb Hct MCV MCH MCHC RDW Plt Count Lymph % (Auto) [place] % (Auto) Eos % (Auto) Baso % (Auto) Absolute Neuts (auto) Absolute Lymphs (auto) Absolute Monos (auto) Absolute Eos (auto) Absolute Basos (auto) Total Counted Seg Neutrophils % Seg Neuts % (Manual) Lymphocytes % (Manual) Monocytes % (Manual) Eosinophils % (Manual) Basophils % (Manual) Abs Neuts (Manual) Abs Lymphs (Manual) Abs Monocytes (Manual) Absolute Eos (Manual) Abs Basophils (Manual) Nucleated RBCs Platelet Estimate Platelet Comment Anisocytosis Ovalocytes PT INR APTT Carbonic Acid HCO3/H2CO3 Ratio ABG pH ABG pCO2 ABG pO2 ABG HCO3 ABG Total CO2 ABG O2 Saturation ABG Base Excess FiO2 Sodium Potassium Chloride Carbon Dioxide Anion Gap BUN Creatinine Est GFR ( Amer) Est GFR (Non-Af Amer) Est GFR (MDRD) Non-Af Glucose Lactic Acid Calcium Phosphorus Magnesium Total Bilirubin Direct Bilirubin Neonat Total Bilirubin Neonat Direct Bilirubin Neonat Indirect Bili AST ALT Alkaline Phosphatase Troponin I 3.060 NT-Pro-B Natriuret Pep Total Protein Albumin EGFR Urine Color YELLOW Urine Appearance SLIGHTLY-CLOUDY Urine pH 5.0 Ur Specific [place] 1.030 Urine Protein 30 H Urine Glucose (UA) NEGATIVE Urine Ketones TRACE H Urine Blood LARGE H Urine Nitrite NEGATIVE Urine Bilirubin NEGATIVE Urine Urobilinogen NEGATIVE Ur Leukocyte Esterase NEGATIVE Urine WBC (Auto) 3 Urine RBC (Auto) 55 U Hyaline Cast (Auto) 3 Urine Bacteria (Auto) Squamous Epi Cells Auto Urine Mucus (Auto) RARE Urine Ascorbic Acid 40 H Time Trough Drawn Vancomycin Trough Digoxin 0.98 COVID-19 Source COVID-19 (SOFI) SARS-CoV-2 (PCR) Slides for Path Review 11/09/19 11/09/19 11/09/19 04:24 11:58 11:58 WBC Cancelled RBC Cancelled Hgb Cancelled Hct Cancelled MCV Cancelled MCH Cancelled MCHC Cancelled RDW Cancelled Plt Count Cancelled Lymph % (Auto) [place] % (Auto) Eos % (Auto) Baso % (Auto) Absolute Neuts (auto) Absolute Lymphs (auto) Absolute Monos (auto) Absolute Eos (auto) Absolute Basos (auto) Total Counted Seg Neutrophils % Seg Neuts % (Manual) Lymphocytes % (Manual) Monocytes % (Manual) Eosinophils % (Manual) Basophils % (Manual) Abs Neuts (Manual) Abs Lymphs (Manual) Abs Monocytes (Manual) Absolute Eos (Manual) Abs Basophils (Manual) Nucleated RBCs Platelet Estimate Cancelled Platelet Comment Anisocytosis Ovalocytes PT INR APTT Carbonic Acid HCO3/H2CO3 Ratio ABG pH ABG pCO2 ABG pO2 ABG HCO3 ABG Total CO2 ABG O2 Saturation ABG Base Excess FiO2 Sodium Cancelled Potassium Cancelled Chloride Cancelled Carbon Dioxide Cancelled Anion Gap Cancelled BUN Cancelled Creatinine Cancelled Est GFR ( Amer) Cancelled Est GFR (Non-Af Amer) Cancelled Est GFR (MDRD) Non-Af Cancelled Glucose Cancelled Lactic Acid Calcium Cancelled Phosphorus Magnesium Cancelled Total Bilirubin Direct Bilirubin Neonat Total Bilirubin Neonat Direct Bilirubin Neonat Indirect Bili AST ALT Alkaline Phosphatase Troponin I 3.120 NT-Pro-B Natriuret Pep Total Protein Albumin EGFR Cancelled Urine Color Urine Appearance Urine pH Ur Specific [place] Urine Protein Urine Glucose (UA) Urine Ketones Urine Blood Urine Nitrite Urine Bilirubin Urine Urobilinogen Ur Leukocyte Esterase Urine WBC (Auto) Urine RBC (Auto) U Hyaline Cast (Auto) Urine Bacteria (Auto) Squamous Epi Cells Auto Urine Mucus (Auto) Urine Ascorbic Acid Time Trough Drawn Vancomycin Trough Digoxin COVID-19 Source COVID-19 (SOFI) SARS-CoV-2 (PCR) Slides for Path Review Cancelled 11/09/19 11/09/19 13:21 13:21 WBC 8.1 RBC 4.56 Hgb 14.4 Hct 41.9 MCV 92 MCH 31.7 MCHC 34.5 RDW 14.8 H Plt Count 101 L Lymph % (Auto) [place] % (Auto) Eos % (Auto) Baso % (Auto) Absolute Neuts (auto) Absolute Lymphs (auto) Absolute Monos (auto) Absolute Eos (auto) Absolute Basos (auto) Total Counted Seg Neuts % (Manual) Lymphocytes % (Manual) Monocytes % (Manual) Eosinophils % (Manual) Basophils % (Manual) Abs Neuts (Manual) Abs Lymphs (Manual) Abs Monocytes (Manual) Absolute Eos (Manual) Abs Basophils (Manual) Nucleated RBCs Platelet Estimate Platelet Comment Anisocytosis Ovalocytes PT INR APTT Carbonic Acid HCO3/H2CO3 Ratio ABG pH ABG pCO2 ABG pO2 ABG HCO3 ABG Total CO2 ABG O2 Saturation ABG Base Excess FiO2 Sodium 137.5 Potassium 4.3 Chloride 104 Carbon Dioxide 21 L Anion Gap 13 BUN 58 H Creatinine 1.63 H Est GFR ( Amer) 50 L Est GFR (Non-Af Amer) Est GFR (MDRD) Non-Af 42 L Glucose 146 H Lactic Acid Calcium 8.5 Phosphorus Magnesium 2.4 H Total Bilirubin 1.4 H Direct Bilirubin 0.5 H Neonat Total Bilirubin Not Reportable Neonat Direct Bilirubin Not Reportable Neonat Indirect Bili Not Reportable AST 216 H ALT 205 H Alkaline Phosphatase 109 Troponin I NT-Pro-B Natriuret Pep Total Protein 6.2 L Albumin 3.2 L EGFR Urine Color Urine Appearance Urine pH Ur Specific [place] Urine Protein Urine Glucose (UA) Urine Ketones Urine Blood Urine Nitrite Urine Bilirubin Urine Urobilinogen Ur Leukocyte Esterase Urine WBC (Auto) Urine RBC (Auto) U Hyaline Cast (Auto) Urine Bacteria (Auto) Squamous Epi Cells Auto Urine Mucus (Auto) Urine Ascorbic Acid Time Trough Drawn Vancomycin Trough Digoxin COVID-19 Source COVID-19 (SOFI) SARS-CoV-2 (PCR) Slides for Path Review Chest X-Ray 11/07/19 00:00 IMPRESSION: Bilateral pulmonary infiltrates with no significant interval change Chest X-Ray 11/07/19 05:25 IMPRESSION: Mixed interstitial and airspace opacities bilaterally could reflect pulmonary edema or pneumonia copyright 2011 [employer]- All Rights Reserved Chest X-Ray 11/08/19 06:00 IMPRESSION: STABLE APPEARANCE OF THE CHEST. IMPRESSION/RECOMMENDATION: 1. Elevated troponin I most likely secondary to supply demand mismatch secondary to patient's hypoxemia and also the patient's junctional tachycardia. Although with the patient's EKG showing nonspecific T changes in inferior leads cannot exclude non-ST elevation [place]. The patient nonspecific T changes could be due to hypoxemia since there is more generalized non-specific ST-T changes which is secondary to the patient's atrial fibrillation. The patient's troponin is trending down. The patient's blood pressure is low hence we will hold off on the patient's beta-vikki or nitrates. Would continue Lovenox. Need to consider long-term anticoagulation. would trend the patient's troponin. Later once the patient's pneumonia resolves and the patient's back to baseline then would recommend that the patient have a IV Lexiscan Cardiolite stress test. 2. Abnormal EKG: Secondary to hypoxemia and tachycardia versus secondary to a fixed lesion or combined lesion and hypoxemia and tachycardia causing ischemic EKG changes. Recommend starting the patient on aspirin 325 mg p.o. daily. 3. NEW onset ATRIAL fibrillation: No recurrence of junctional tachycardia. At present patient with atrial fibrillation.: See if we can get the patient on a small dose of Cardizem. But due to patient's blood pressure being low unable to place the patient on Cardizem. Will give digoxin to control the patient's heart rate. Will continue the patient's Lovenox to 1 mg/kg subcutaneously every 12 hours. The the patient clinically has no heart failure. Metoprolol would not be a good choice. Hence have discontinued this. The better choice will be Cardizem will start at 30 mg p.o. every 6 hours and transition to long-acting Cardizem. Note Cardizem should be effective in the presence of coronary artery disease since the patient has no heart failure and his LV ejection fraction is normal. Although Cardizem also might be helpful since the patient has significant pulmonary hypertension. I believe the mitral regurgitation although moderate by echo clinically is not of much significance and I doubt that this is causing heart failure. This will also help the patient's pulmonary hypertension. 4. Pneumonia Patient on antibiotics. The patient is COVID19 test were negative x2 5. Dehydration with prerenal state: Continue IV fluids aggressively note that the patient's arterial systolic function is normal. 6. Severe pulmonary hypertension: Suspect this will be much less once the pneumonia is resolved. Cardizem may help this to a certain extent. We will al so later start the patient on a PANCHO inhibitor or ARB. 7. Moderately severe tricuspid regurgitation 8.. COPD by exam 9. History of tobacco abuse: Tobacco cessation counseling done 3 minutes spent on this. 10.. Moderate eccentric mitral regurgitation: Start the patient on Cardizem. 11. The patient's corrected Oumar Vascor is 1. But would strongly recommend chronic anticoagulation, since the patient has no risks of increased bleeding complications. MY clinical cardiology opinion is that the patient, that at present, he is not in left heart failure. We will recheck patient's chest x-ray in the a.m. Medications reviewed. Medications adjusted. Medications, medical decision making and management plan discussed with the chain maker machine. Medical decision making is still of high complexity. 40-minute spent as patient more than 50% of time spent in direct patient care. Will follow
[2019-11-09] MEDS: DILTIAZEM HCL 30 MG TABLET PO SCH ×3 (13:29→23:26)
[2019-11-09] MEDS: ASPIRIN 325 MG TABLET PO SCH (13:29)
[2019-11-09 13:36] LABS: HEMATOCRIT 41.9 % (37.9-51.0); HEMOGLOBIN 14.4 g/dL (13.5-17.0); MEAN CORPUSCULAR HEMOGLOBIN 31.7 pg (27.0-33.4); MEAN CORPUSCULAR HGB CONC 34.5 g/dL (32.0-36.0); MEAN CORPUSCULAR VOLUME 92 fl (80-97); PLATELET COUNT 101 10^3/uL (150-450); RED BLOOD COUNT 4.56 10^6/uL (4.35-5.55); RED CELL DISTRIBUTION WIDTH 14.8 % (11.5-14.0); WHITE BLOOD COUNT 8.1 10^3/uL (4.0-10.5)
[2019-11-09 13:46] LABS: ALBUMIN 3.2 g/dL (3.5-5.0); ALKALINE PHOSPHATASE 109 U/L (38-126); ANION GAP 13 (5-19); ASPARTATE AMINO TRANSFERASE 216 U/L (17-59); BILIRUBIN,DIRECT 0.5 mg/dL (0.0-0.4); BILIRUBIN,TOTAL 1.4 mg/dL (0.2-1.3); BLOOD UREA NITROGEN 58 mg/dL (7-20); CALCIUM 8.5 mg/dL (8.4-10.2); CARBON DIOXIDE 21 mmol/L (22-30); CHLORIDE 104 mmol/L (98-107); GLUCOSE 146 mg/dL (75-110); TOTAL PROTEIN 6.2 g/dL (6.3-8.2)
[2019-11-09 13:50] LABS: POTASSIUM 4.3 mmol/L (3.6-5.0)
[2019-11-09] MEDS: VANCOMYCIN HCL 1,250 MG in DEXTROSE 5%-WATER 250 ML IV SCH (21:26)
[2019-11-10] MEDS: IPRATROPIUM/ALBUTEROL 0.5-2.5 MG/3 ML AMPUL NEB SCH ×4 (01:17→19:58)
[2019-11-10 04:41] LABS: ANION GAP 14 (5-19); BLOOD UREA NITROGEN 61 mg/dL (7-20); CALCIUM 8.4 mg/dL (8.4-10.2); CARBON DIOXIDE 18 mmol/L (22-30); CHLORIDE 105 mmol/L (98-107); GLUCOSE 155 mg/dL (75-110); POTASSIUM 4.4 mmol/L (3.6-5.0)
[2019-11-10 04:51] LABS: TROPONIN I 2.49 ng/mL
[2019-11-10] MEDS: DILTIAZEM HCL 30 MG TABLET PO SCH ×2 (05:35→11:46)
[2019-11-10] MEDS: PIPERACILLIN SODIUM/TAZOBACTAM 3.375 GM in NORMAL SALINE 100 ML IV SCH ×3 (05:35→17:44)
[2019-11-10 07:23] LABS: HEMOGLOBIN 13.9 g/dL (13.5-17.0); MEAN CORPUSCULAR HEMOGLOBIN 31.3 pg (27.0-33.4); MEAN CORPUSCULAR VOLUME 92 fl (80-97); PLATELET COUNT 105 10^3/uL (150-450); RED BLOOD COUNT 4.46 10^6/uL (4.35-5.55); RED CELL DISTRIBUTION WIDTH 14.6 % (11.5-14.0); WHITE BLOOD COUNT 11.1 10^3/uL (4.0-10.5)
[2019-11-10 08:05] LABS: ABSOLUTE LYMPHOCYTES# (MANUAL) 0.7 10^3/uL (0.5-4.7); ABSOLUTE MONOCYTES # (MANUAL) 0.2 10^3/uL (0.1-1.4); ANISOCYTOSIS SLIGHT; BASOPHILS % (MANUAL) 0 % (0-2); EOSINOPHILS % (MANUAL) 0 % (0-6); LYMPHOCYTES % (MANUAL) 6 % (13-45); MONOCYTES % (MANUAL) 2 % (3-13); NUCLEATED RED BLOOD CELLS 2 /100 WBC (0); OVALOCYTES SLIGHT; PLATELET COMMENT DECREASED; SEGMENTED NEUTROPHILS % (MAN) 92 % (42-78); TOTAL CELLS COUNTED 100
[2019-11-10] MEDS: BUDESONIDE NEB 0.25 MG/2 ML AMPUL NEB SCH ×3 (08:34→19:58)
--- NOTE | 2019-11-10 08:35 | EKG REPORT ---
SEVERITY:- ABNORMAL ECG - ATRIAL FIBRILLATION WITH RVR LOW VOLTAGE IN FRONTAL LEADS BORDERLINE REPOL ABNORMALITY, INF-LAT LEADS : Confirmed by: Ashutosh Haque MD 10-Nov-2019 08:34:15
--- NOTE | 2019-11-10 10:23 | PDOC CRITICAL CARE PROG REPORT ---
General Date:: 11/09/19 ICU Day:: 3 Hospital Day:: 3 Resuscitation Status: Full Code Events in the past 12 to 24 Hours:: This 74-year-old male smoker was admitted on 11/07/2019 with complaints of increasing shortness of breath, diffuse chest pain and myalgia over a period of 24 hours prior to presentation. Due to clinical suspicion for COVID-19, the patient was maintained in isolation after his rapid test was negative, pending results of a repeat test. Initial laboratory evaluation was notable for elevated troponin and proBNP. His AST ALT ratio was roughly 2-1. EKG showed abnormal T waves (flattening and inversion) in limb leads II, III and aVF. He was afebrile but did present with leukocytosis. He was started on empiric Zosyn and vancomycin with subsequent decrease in WBC count. 2D echo (11/06) was reported to be suboptimal in quality. In particular, apical and basal inferior wall was not well visualized. LVEF was estimated to be greater than 65% with normal diastolic function. Eccentric, posteriorly directed, moderate mitral regurgitation was noted. 11/08: Monitor shows atrial fibrillation. Patient denies any history of atrial fibrillation. On the other hand, he also states that he is unaware of his irregular heartbeat. No chest pain at this time. He denies nausea/vomiting. He is on BiPAP 03/08, FiO2 35% during clinical interview. Review of systems relevant to events:: Pulmonary: Exertional dyspnea with dyspnea at rest Cardiovascular: Chest pain Reason for ICU Addmission:: Respiratory failure, pneumonia, risk of intubation - Medications: Medications reviewed and adjusted accordingly: Yes Vasopressors:: None Physical Exam Vital Signs: Temp Pulse Resp BP Pulse Ox 98.4 F 108 H 28 H 104/84 91 L 11/09/19 10:01 11/08/19 19:55 11/09/19 11:06 11/09/19 10:00 11/09/19 11:06 Intake & Output 11/08/19 11/09/19 11/10/19 06:59 06:59 06:59 Intake Total 6564 5029 Output Total 480 610 75 Balance 6084 4419 -75 Weight 78.1 kg 82.6 kg Weight/Height Weight 82.6 kg Height 1.75 m General appearance: PRESENT: no acute distress, well-developed, well-nourished Head exam: PRESENT: atraumatic, normocephalic Eye exam: PRESENT: conjunctiva pink, EOMI, PERRLA. ABSENT: scleral icterus Mouth exam: PRESENT: moist, tongue midline Neck exam: ABSENT: carotid bruit, JVD, lymphadenopathy, thyromegaly Respiratory exam: PRESENT: crackles - Right mid and lower lung villarreal, unlabored. ABSENT: rales, rhonchi, wheezes Cardiovascular exam: PRESENT: irregular rhythm, systolic murmur - Mitral. ABSENT: gallop, rubs GI/Abdominal exam: PRESENT: normal bowel sounds, soft. ABSENT: distended, guarding, mass, organolmegaly, rebound, tenderness Gentrourinary exam: PRESENT: indwelling catheter Extremities exam: PRESENT: full ROM. ABSENT: calf tenderness, clubbing, pedal edema Musculoskeletal exam: PRESENT: normal inspection. ABSENT: deformity Neurological exam: PRESENT: alert, awake, oriented to person, oriented to place, oriented to time, oriented to situation, CN II-XII grossly intact. ABSENT: motor sensory deficit Skin exam: PRESENT: dry, intact, warm. ABSENT: cyanosis, rash Laboratory/Radiographs Laboratory Results: 11/08/19 18:00 Urine Color YELLOW Urine Appearance SLIGHTLY-CLOUDY Urine pH 5.0 Ur Specific Hollister 1.030 Urine Protein 30 H Urine Glucose (UA) NEGATIVE Urine Ketones TRACE H Urine Blood LARGE H Urine Nitrite NEGATIVE Ur Leukocyte Esterase NEGATIVE Urine WBC (Auto) 3 Urine RBC (Auto) 55 11/07/19 11/07/19 11/07/19 06:00 11:12 20:13 Troponin I 2.060 6.020 Cancelled NT-Pro-B Natriuret Pep 40758 H Cancelled 11/07/19 11/08/19 11/08/19 21:00 04:06 09:26 Troponin I 5.440 3.060 NT-Pro-B Natriuret Pep 04173 H 86905 H 11/09/19 04:24 Troponin I 3.120 NT-Pro-B Natriuret Pep Impressions: Chest X-Ray 11/08/19 06:00 IMPRESSION: STABLE APPEARANCE OF THE CHEST. All labs, radiographs, diagnostic studies and EKGs were personally reviewed: Yes In addition, reports of radiographic and diagnostic studies were read: Yes Assessment and Plan - Diagnosis (1) Non-ST elevation myocardial infarction (NSTEMI) Is this a current diagnosis for this admission?: Yes Plan: Start aspirin. Continue Lovenox 1 mg/kg subcutaneously every 12 hours. Case discussed with Dr. Fowler. With plans to start p.o. Cardizem, will withhold beta blockade at this time. Clinically, the patient's presentation is suspicious for acute/subacute myocardial infarction complicated by post-FL pump failure, new onset atrial fibrillation and acute mitral regurgitation. (2) Atrial fibrillation with RVR Is this a current diagnosis for this admission?: Yes Plan: Cardiology help appreciated. Currently off Cardizem infusion. Case discussed with Dr. Fowler. Plans to start p.o. Cardizem noted. Will need to transition to oral anticoagulant. (3) Multilobar lung infiltrate Is this a current diagnosis for this admission?: Yes Plan: Continue empiric Zosyn/vancomycin. WBC count downtrending, of unknown clinical significance. Chest x-ray is compatible with mitral regurgitation. (4) Elevated brain natriuretic peptide (BNP) level Is this a current diagnosis for this admission?: Yes Plan: Stop maintenance IV fluids. 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 (7) Tobacco abuse Is this a current diagnosis for this admission?: Yes Plan: With ongoing concern for myocardial ischemia, no nicotine transdermal at this time. (8) Tobacco abuse counseling Is this a current diagnosis for this admission?: Yes Critical Time Critical Time (minutes): 60 Level of Care: ICU -: 1. The care of a critical patient is a dynamic process. This note is a service support representative synopsis but static in nature. The timeframe for treatments given in order is not necessarily the actual time these treatments may have been done. 2. This patient requires critical care secondary to ongoing requirements for therapy not offered or safe outside the critical care environment. Transfer to a lower level of care will result in altered life or limb morbidity and mortality. 3. Multidisciplinary rounds completed. 4. ABCDE bundle addressed.
[2019-11-10] MEDS: ENOXAPARIN SODIUM INJ 80 MG/0.8 ML DISP.SYRIN SUBCUT SCH ×2 (11:46→22:32)
[2019-11-10] MEDS: ASPIRIN 325 MG TABLET PO SCH (11:46)
--- NOTE | 2019-11-10 13:52 | RADIOLOGY REPORT (SQ) ---
EXAM DESCRIPTION: CHEST SINGLE VIEW IMAGES COMPLETED DATE/TIME: 11/10/2019 1:30 pm REASON FOR STUDY: pneumonia COMPARISON: None. NUMBER OF VIEWS: One view. TECHNIQUE: Single frontal radiographic image of the chest acquired. LIMITATIONS: None. FINDINGS: LUNGS AND PLEURA: Bilateral airspace disease not significantly changed allowing for differ ences in technique. MEDIASTINUM AND HEART: Stable heart size and mediastinal structures. BONY STRUCTURES: No acute findings. HARDWARE: None. OTHER: No other significant finding. IMPRESSION: No significant change. TECHNICAL DOCUMENTATION: JOB ID: [id number] Reading location - IP/workstation name: [email or web address]
[2019-11-10] MEDS ORDERED: DIGOXIN INJ 0.5 MG/2 ML AMPULE IV ONE (14:00)
--- NOTE | 2019-11-10 14:08 | Progress Note ---
Provider Note Provider Note: CARDIOLOGY PROGRESS NOTE by Dr. Hannah Fowler on 11/10/2019. OBJECTIVE: The patient states his shortness of breath is much better. He is coughing less amount of milky white sputum. He has no chest pain discomfort. He continues to be in atrial fibrillation at times his heart rate goes into the 120s. His blood pressure is much improved. He has no PND orthopnea leg edema or anginal symptoms. There is no ventricle arrhythmia seen on the monitor. His breathing is better and his oxygen requirements are much less and less and is now on nasal cannula. His troponin is trending down. PHYSICAL EXAMINATION: The patient is of thin build, but appears to be well- nourished. In no acute distress. Selected Entries 11/10/19 11/10/19 11/10/19 08:10 08:11 08:34 Heart Rate ( 113 95 Monitors) Respiratory 18 Rate Blood Pressure 105/90 H Blood Pressure 95 Mean O2 Sat by Pulse 92 Oximetry Oxygen Delivery Nasal Cannula Method ( includes room air) Fraction of 36 Inspired Oxygen (FIO2) Oxygen Flow 4 Rate Head: Is atraumatic normocephalic. EYES: Pupils are equal round regular reactive light and accommodation. ENT is negative. Neck. Supple. There is there is no JVD. Carotids are equal there is no bruits. There is no lymphadenopathy. Lungs: There is no accessory muscle respiration use. Trachea central. There is a few dry coarse crackles in the right mid zone. There is diminished air entry and prolonged expiration. There is no rales of CHF. On percussion there is hyperresonance. HEART: S1-S2 is heard. S1 is of variable intensity. There is no S3 gallop. There is no S4 gallop.. Systolic murmur left sternal border and the apex there is no rub. There is murmur of mitral regurgitation tricuspid regurgitation present. There is no aortic stenosis murmur. ABDOMEN: Soft. Nontender there is no hepatosplenomegaly. Bowel sounds are well heard. EXTREMITIES: Femorals are well felt. Leg pulses well felt. There is no pedal edema. There is no femoral bruits. There is no cyanosis or clubbing. There is no DVT or cellulitis. There is no calf tenderness. CLINICAL REHAB SPECIALIST: The patient is conscious awake alert oriented x3 with no focal deficits. PSYCHIATRIC: The patient judgment insight are intact his affect is normal. Labs- All tests 24 hr 11/10/19 11/10/19 11/10/19 04:00 04:00 04:00 WBC Cancelled RBC Cancelled Hgb Cancelled Hct Cancelled MCV Cancelled MCH Cancelled MCHC Cancelled RDW Cancelled Plt Count Cancelled Lymph % (Auto) Cancelled Peach % (Auto) Cancelled Eos % (Auto) Cancelled Baso % (Auto) Cancelled Absolute Neuts (auto) Cancelled Absolute Lymphs (auto) Cancelled Absolute Monos (auto) Cancelled Absolute Eos (auto) Cancelled Absolute Basos (auto) Cancelled Total Counted Seg Neutrophils % Cancelled Seg Neuts % (Manual) Lymphocytes % (Manual) Monocytes % (Manual) Eosinophils % (Manual) Basophils % (Manual) Abs Neuts (Manual) Abs Lymphs (Manual) Abs Monocytes (Manual) Absolute Eos (Manual) Abs Basophils (Manual) Nucleated RBCs Platelet Estimate Cancelled Platelet Comment Anisocytosis Ovalocytes Sodium 136.9 L Potassium 4.4 Chloride 105 Carbon Dioxide 18 L Anion Gap 14 BUN 61 H Creatinine 1.62 H Est GFR ( Amer) 51 L Est GFR (MDRD) Non-Af 42 L Glucose 155 H Calcium 8.4 Phosphorus 5.0 H Magnesium 2.3 Troponin I 2.490 NT-Pro-B Natriuret Pep 87005 H Time Trough Drawn Vancomycin Trough Slides for Path Review Cancelled 11/10/19 11/10/19 11/10/19 07:02 21:18 21:18 WBC 11.1 H RBC 4.46 Hgb 13.9 Hct 41.0 MCV 92 MCH 31.3 MCHC 34.0 RDW 14.6 H Plt Count 105 L Lymph % (Auto) Not Reportable Peach % (Auto) Not Reportable Eos % (Auto) Not Reportable Baso % (Auto) Not Reportable Absolute Neuts (auto) Not Reportable Absolute Lymphs (auto) Not Reportable Absolute Monos (auto) Not Reportable Absolute Eos (auto) Not Reportable Absolute Basos (auto) Not Reportable Total Counted 100 Seg Neutrophils % Not Reportable Seg Neuts % (Manual) 92 H Lymphocytes % (Manual) 6 L Monocytes % (Manual) 2 L Eosinophils % (Manual) 0 Basophils % (Manual) 0 Abs Neuts (Manual) 10.2 H Abs Lymphs (Manual) 0.7 Abs Monocytes (Manual) 0.2 Absolute Eos (Manual) 0.0 Abs Basophils (Manual) 0.0 Nucleated RBCs 2 Platelet Estimate Platelet Comment DECREASED Anisocytosis SLIGHT Ovalocytes SLIGHT Sodium Potassium Chloride Carbon Dioxide Anion Gap BUN Creatinine 1.50 H Est GFR ( Amer) 56 L Est GFR (MDRD) Non-Af 46 L Glucose Calcium Phosphorus Magnesium Troponin I NT-Pro-B Natriuret Pep Time Trough Drawn 8 Vancomycin Trough 9.7 Slides for Path Review Chest X-Ray 11/07/19 00:00 IMPRESSION: Bilateral pulmonary infiltrates with no significant interval change Chest X-Ray 11/07/19 05:25 IMPRESSION: Mixed interstitial and airspace opacities bilaterally could reflect pulmonary edema or pneumonia copyright 2011 [employer]- All Rights Reserved Chest X-Ray 11/08/19 06:00 IMPRESSION: STABLE APPEARANCE OF THE CHEST. Chest X-Ray 11/10/19 00:00 IMPRESSION: No significant change. EKG: ATRIAL FIBRILLATION WITH fast ventricular response. [LVOLF] . LOW VOLTAGE IN FRONTAL LEADS [REPBIL] . BORDERLINE REPOL ABNORMALITY, INF-LAT LEADS IMPRESSION/RECOMMENDATION: 1. Elevated troponin I most likely secondary to supply demand mismatch secondary to patient's hypoxemia and also the patient's junctional tachycardia. Although with the patient's EKG showing nonspecific T changes in inferior leads cannot exclude non-ST elevation [place]. The patient nonspecific T changes could be due to hypoxemia since there is more generalized non-specific ST-T changes which is secondary to the patient's atrial fibrillation. The patient's troponin is trending down. The patient's blood pressure is low hence we will hold off on the patient's beta-vikki or nitrates. Would continue Lovenox. Need to consider long-term anticoagulation. would trend the patient's troponin. Later once the patient's pneumonia resolves and the patient's back to baseline then would recommend that the patient have a IV Lexiscan Cardiolite stress test. 2. Abnormal EKG: Secondary to hypoxemia and tachycardia versus secondary to a fixed lesion or combined lesion and hypoxemia and tachycardia causing ischemic EKG changes. Recommend starting the patient on aspirin 325 mg p.o. daily. 3. NEW onset ATRIAL fibrillation: No recurrence of junctional tachycardia. At present patient with atrial fibrillation.: See if we can get the patient on a small dose of Cardizem. But due to patient's blood pressure being low unable to place the patient on Cardizem. Will give digoxin to control the patient's heart rate. Will continue the patient's Lovenox to 1 mg/kg subcutaneously every 12 hours. The the patient clinically has no heart failure. Metoprolol would not be a good choice. Hence have discontinued this. The better choice will be Cardizem will start at 30 mg p.o. every 6 hours and transition to long-acting Cardizem. Note Cardizem should be effective in the presence of coronary artery disease since the patient has no heart failure and his LV ejection fraction is normal. Although Cardizem also might be helpful since the patient has significant pulmonary hypertension. I believe the mitral regurgitation although moderate by echo clinically is not of much significance and I doubt that this is causing heart failure. This will also help the patient's pulmonary hypertension. Will increase the Cardizem to 60 mg p.o. every 6 hours. Later we will transition to long-acting Cardizem preparation. Will discuss with the patient about long-term chronic anticoagulation. 4. Pneumonia Patient on antibiotics. The patient is COVID19 test were negative x2 5. Dehydration with prerenal state: Continue IV fluids aggressively note that the patient's arterial systolic function is normal. 6. Severe pulmonary hypertension: Suspect this will be much less once the pneumonia is resolved. Cardizem may help this to a certain extent. We will also later start the patient on a PANCHO inhibitor or ARB. 7. Moderately severe tricuspid regurgitation 8.. COPD by exam 9. History of tobacco abuse: Tobacco cessation counseling done 3 minutes spent on this. 10.. Moderate eccentric mitral regurgitation: Start the patient on Cardizem. 11. The patient's corrected Oumar Vascor is 1. But would strongly recommend chronic anticoagulation, since the patient has no risks of increased bleeding complications. 12. Mild renal insufficiency: Since expect that this will improve once her initial insult of the pneumonia and atrial fibrillation with rapid ventricular response resolved and patient back to baseline. Medications reviewed. Medications adjusted. Medical decision making is of high complexity. Medical management and medical regimen discussed with the cliff duarte. Medical decision making is of high complexity 40 minutes spent on the patient more than 50% time spent in direct patient care.
[2019-11-10] MEDS: DILTIAZEM HCL 60 MG TABLET PO SCH ×2 (17:44→23:01)
[2019-11-10] MEDS: LACTOBACILLUS ACIDOPHILUS 250 MG TAB PO SCH (17:45)
--- NOTE | 2019-11-10 18:07 | PDOC CRITICAL CARE PROG REPORT ---
General Date:: 11/10/19 ICU Day:: 4 Hospital Day:: 4 Resuscitation Status: Full Code Events in the past 12 to 24 Hours:: This 74-year-old male smoker was admitted on 11/07/2019 with complaints of increasing shortness of breath, diffuse chest pain and myalgia over a period of 24 hours prior to presentation. Due to clinical suspicion for COVID-19, the patient was maintained in isolation after his rapid test was negative, pending results of a repeat test. Initial laboratory evaluation was notable for elevated troponin and proBNP. His AST ALT ratio was roughly 2-1. EKG showed abnormal T waves (flattening and inversion) in limb leads II, III and aVF. He was afebrile but did present with leukocytosis. He was started on empiric Zosyn and vancomycin with subsequent decrease in WBC count. 2D echo (11/06) was reported to be suboptimal in quality. In particular, apical and basal inferior wall was not well visualized. LVEF was estimated to be greater than 65% with normal diastolic function. Eccentric, posteriorly directed, moderate mitral regurgitation was noted. 11/08: Monitor shows atrial fibrillation. Patient denies any history of atrial fibrillation. On the other hand, he also states that he is unaware of his irregular heartbeat. No chest pain at this time. He denies nausea/vomiting. He is on BiPAP 03/08, FiO2 35% during clinical interview. 11/09: Monitor continues to show atrial fibrillation, in and out of rapid ventricular response. Now on Cardizem 30 mg p.o. every 6 hours. [place] [address]. No chest pain. No nausea/vomiting. On nasal cannula. Blood cultures (11/06, 1 of 2 bottles) growing gram-positive oniel. Review of systems relevant to events:: Pulmonary: Exertional dyspnea with dyspnea at rest Cardiovascular: Chest pain Reason for ICU Addmission:: Respiratory failure, pneumonia, risk of intubation Physical Exam Vital Signs: Temp Pulse Resp BP Pulse Ox 97.3 F 122 H 38 H 111/88 H 89 L 11/10/19 03:42 11/10/19 08:34 11/10/19 11:17 11/10/19 11:17 11/10/19 11:00 Intake & Output 11/09/19 11/10/19 11/11/19 06:59 06:59 06:59 Intake Total 5029 1437 Output Total 610 400 Balance 4419 1037 Weight 82.6 kg 83.4 kg Weight/Height Weight 83.4 kg Height 1.75 m General appearance: PRESENT: no acute distress, well-developed, well-nourished Head exam: PRESENT: atraumatic, normocephalic Eye exam: PRESENT: conjunctiva pink, EOMI, PERRLA. ABSENT: scleral icterus Ear exam: PRESENT: normal external ear exam Mouth exam: PRESENT: moist, tongue midline Neck exam: ABSENT: carotid bruit, JVD, lymphadenopathy, thyromegaly Respiratory exam: PRESENT: crackles - Right base. ABSENT: rales, rhonchi, wheezes Cardiovascular exam: PRESENT: irregular rhythm, systolic murmur, tachycardia. ABSENT: diastolic murmur, rubs GI/Abdominal exam: PRESENT: normal bowel sounds, soft. ABSENT: distended, guarding, mass, organolmegaly, rebound, tenderness Extremities exam: PRESENT: full ROM. ABSENT: calf tenderness, clubbing, pedal edema Neurological exam: PRESENT: alert, awake, oriented to person, oriented to place, oriented to time, oriented to situation, CN II-XII grossly intact. ABSENT: motor sensory deficit Skin exam: PRESENT: dry, intact, warm. ABSENT: cyanosis, rash Laboratory/Radiographs Laboratory Results: 11/10/19 07:02 11/10/19 04:00 11/09/19 11/09/19 11/09/19 11:58 13:21 13:21 WBC Cancelled 8.1 RBC Cancelled 4.56 Hgb Cancelled 14.4 Hct Cancelled 41.9 MCV Cancelled 92 MCH Cancelled 31.7 MCHC Cancelled 34.5 RDW Cancelled 14.8 H Plt Count Cancelled 101 L Seg Neutrophils % Sodium 137.5 Potassium 4.3 Chloride 104 Carbon Dioxide 21 L Anion Gap 13 BUN 58 H Creatinine 1.63 H Est GFR ( Amer) 50 L Glucose 146 H Calcium 8.5 Phosphorus Magnesium 2.4 H Total Bilirubin 1.4 H AST 216 H Alkaline Phosphatase 109 Total Protein 6.2 L Albumin 3.2 L 11/10/19 11/10/19 11/10/19 04:00 04:00 07:02 WBC Cancelled 11.1 H RBC Cancelled 4.46 Hgb Cancelled 13.9 Hct Cancelled 41.0 MCV Cancelled 92 MCH Cancelled 31.3 MCHC Cancelled 34.0 RDW Cancelled 14.6 H Plt Count Cancelled 105 L Seg Neutrophils % Cancelled Not Reportable Sodium 136.9 L Potassium 4.4 Chloride 105 Carbon Dioxide 18 L Anion Gap 14 BUN 61 H Creatinine 1.62 H Est GFR ( Amer) 51 L Glucose 155 H Calcium 8.4 Phosphorus 5.0 H Magnesium 2.3 Total Bilirubin AST Alkaline Phosphatase Total Protein Albumin 11/07/19 05:45 Blood Blood Culture (PCR) - Final 11/07/19 11/07/19 11/07/19 06:00 11:12 20:13 Troponin I 2.060 6.020 Cancelled NT-Pro-B Natriuret Pep 52455 H Cancelled 11/07/19 11/08/19 11/08/19 21:00 04:06 09:26 Troponin I 5.440 3.060 NT-Pro-B Natriuret Pep 37379 H 26315 H 11/09/19 11/10/19 04:24 04:00 Troponin I 3.120 2.490 NT-Pro-B Natriuret Pep 54272 H Impressions: Chest X-Ray 11/08/19 06:00 IMPRESSION: STABLE APPEARANCE OF THE CHEST. All labs, radiographs, diagnostic studies and EKGs were personally reviewed: Yes In addition, reports of radiographic and diagnostic studies were read: Yes Assessment and Plan - Diagnosis (1) Non-ST elevation myocardial infarction (NSTEMI) Is this a current diagnosis for this admission?: Yes Plan: Continue aspirin, Lovenox 1 mg/kg subcutaneously every [address] Fowler's input appreciated. On Cardizem 30 mg p.o. every 6 hours. Eventual plan for nuclear stress test noted. (2) Atrial fibrillation with RVR Is this a current diagnosis for this admission?: Yes Plan: Cardiology help appreciated. On Cardizem 30 mg p.o. every 6 hours. Will need to transition to oral anticoagulant. (3) Multilobar lung infiltrate Is this a current diagnosis for this admission?: Yes Plan: I doubt that this is an infectious pneumonia. Chest x-ray in a.m. (4) Elevated brain natriuretic peptide (BNP) level Is this a current diagnosis for this admission?: Yes Plan: Stop maintenance IV fluids. 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 (7) Tobacco abuse Is this a current diagnosis for this admission?: Yes (8) Tobacco abuse counseling Is this a current diagnosis for this admission?: Yes Critical Time Critical Time (minutes): 60 Level of Care: ICU -: 1. The care of a critical patient is a dynamic process. This note is a medical customer service representative synopsis but static in nature. The timeframe for treatments given in order is not necessarily the actual time these treatments may have been done. 2. This patient requires critical care secondary to ongoing requirements for therapy not offered or safe outside the critical care environment. Transfer to a lower level of care will result in altered life or limb morbidity and mortality. 3. Multidisciplinary rounds completed. 4. ABCDE bundle addressed.
[2019-11-10] MEDS ORDERED: PANTOPRAZOLE SODIUM 40 MG TABLET.DR PO ONE (18:30)
[2019-11-10 22:02] LABS: VANCOMYCIN,TROUGH 9.7 ug/mL (5.0-20.0)
[2019-11-10] MEDS: VANCOMYCIN HCL 1,250 MG in DEXTROSE 5%-WATER 250 ML IV SCH (22:32)
[2019-11-11] MEDS: PIPERACILLIN SODIUM/TAZOBACTAM 3.375 GM in NORMAL SALINE 100 ML IV SCH ×4 (00:06→17:04)
[2019-11-11] MEDS: IPRATROPIUM/ALBUTEROL 0.5-2.5 MG/3 ML AMPUL NEB SCH ×4 (02:27→20:21)
[2019-11-11 05:37] LABS: ANION GAP 14 (5-19); BLOOD UREA NITROGEN 54 mg/dL (7-20); CALCIUM 8.3 mg/dL (8.4-10.2); CARBON DIOXIDE 19 mmol/L (22-30); CHLORIDE 104 mmol/L (98-107); GLUCOSE 179 mg/dL (75-110); PHOSPHORUS 4.3 mg/dL (2.5-4.5); POTASSIUM 4.4 mmol/L (3.6-5.0)
[2019-11-11] MEDS: DILTIAZEM HCL 60 MG TABLET PO SCH ×3 (05:40→17:00)
[2019-11-11 06:14] LABS: HEMATOCRIT 42.9 % (37.9-51.0); HEMOGLOBIN 14.3 g/dL (13.5-17.0); RED BLOOD COUNT 4.59 10^6/uL (4.35-5.55); WHITE BLOOD COUNT 11.3 10^3/uL (4.0-10.5)
[2019-11-11 06:15] LABS: MEAN CORPUSCULAR HEMOGLOBIN 31.2 pg (27.0-33.4); MEAN CORPUSCULAR HGB CONC 33.4 g/dL (32.0-36.0); MEAN CORPUSCULAR VOLUME 94 fl (80-97); RED CELL DISTRIBUTION WIDTH 14.6 % (11.5-14.0)
[2019-11-11 06:19] LABS: PLATELET COUNT 91 10^3/uL (150-450)
[2019-11-11 06:22] LABS: ABSOLUTE LYMPHOCYTES# (MANUAL) 0.6 10^3/uL (0.5-4.7); ABSOLUTE MONOCYTES # (MANUAL) 0.1 10^3/uL (0.1-1.4); BASOPHILS % (MANUAL) 0 % (0-2); EOSINOPHILS % (MANUAL) 0 % (0-6); LYMPHOCYTES % (MANUAL) 5 % (13-45); MONOCYTES % (MANUAL) 1 % (3-13); NUCLEATED RED BLOOD CELLS 7 /100 WBC (0); SEGMENTED NEUTROPHILS % (MAN) 94 % (42-78); TOTAL CELLS COUNTED 100
[2019-11-11 06:25] LABS: ANISOCYTOSIS SLIGHT; PLATELET COMMENT DECREASED; POLYCHROMASIA SLIGHT; TOXIC GRANULATION SLIGHT; TOXIC VACUOLATION PRESENT
[2019-11-11 06:54] LABS: APPEARANCE,URINE CLEAR; BILIRUBIN,URINE NEGATIVE (NEGATIVE); COLOR,URINE YELLOW; GLUCOSE, URINE NEGATIVE (NEGATIVE); KETONES,URINE NEGATIVE (NEGATIVE); LEUKOCYTE ESTERASE,URINE NEGATIVE (NEGATIVE); NITRITE,URINE NEGATIVE (NEGATIVE); PROTEIN,URINE NEGATIVE (NEGATIVE); URINE SPECIFIC GRAVITY 1.026; UROBILINOGEN,URINE NEGATIVE mg/dL (<2.0)
--- NOTE | 2019-11-11 08:29 | RADIOLOGY REPORT (SQ) ---
EXAM DESCRIPTION: CHEST SINGLE VIEW IMAGES COMPLETED DATE/TIME: 11/11/2019 6:10 am REASON FOR STUDY: pneumonia COMPARISON: 11/10/2019 EXAM PARAMETERS: NUMBER OF VIEWS: One view. TECHNIQUE: Single frontal radiographic view of the chest acquired. RADIATION DOSE: NA LIMITATIONS: None. FINDINGS: LUNGS AND PLEURA: Bilateral patchy airspace disease greatest within the upper lobes. Smal l bilateral effusions. No pneumothorax. MEDIASTINUM AND HILAR STRUCTURES: Stable. HEART AND VASCULAR STRUCTURES: Normal heart size. Fluffy perihilar opacities. BONES: No acute findings. HARDWARE: None in the chest. OTHER: No other significant finding. IMPRESSION: Stable patchy bilateral airspace disease, greatest within the upper lobes, and small tasia ateral effusions. TECHNICAL DOCUMENTATION: JOB ID: [id number] [employer]- All Rights Reserved Reading location - IP/workstation name: [email or web address]
[2019-11-11] MEDS: BUDESONIDE NEB 0.25 MG/2 ML AMPUL NEB SCH ×2 (08:54→20:21)
[2019-11-11] MEDS: ENOXAPARIN SODIUM INJ 80 MG/0.8 ML DISP.SYRIN SUBCUT SCH ×2 (09:46→22:54)
[2019-11-11] MEDS: LACTOBACILLUS ACIDOPHILUS 250 MG TAB PO SCH ×2 (09:47→17:00)
[2019-11-11] MEDS: ASPIRIN 325 MG TABLET PO SCH (09:47)
--- NOTE | 2019-11-11 11:12 | Neuro Death Exam ---
1st EXAM - I. PREREQUISITES 1. Absence of severe electrolyte, acid base or endocrine disturbance or severe hyperammonemia: Yes 2. Absence of drug intoxication, poisoning, sedatives or neuromuscular blocking agents: Yes
[2019-11-11] MEDS: PANTOPRAZOLE SODIUM 40 MG TABLET.DR PO SCH (11:58)
[2019-11-11] MEDS ORDERED: FUROSEMIDE INJ/PF 40 MG/4 ML SDV IV ONE (12:15)
[2019-11-11] MEDS ORDERED: DIGOXIN INJ 0.5 MG/2 ML AMPULE IV ONE ×2 (15:07→21:29)
--- NOTE | 2019-11-11 15:13 | Progress Note ---
Provider Note Provider Note: Cardiology PROGRESS NOTE by Dr. Hannah Fowler on 11/11/2019. OBJECTIVE: The patient continues to be in atrial fibrillation with ventricular response in the high 1 teens. He states his breathing is better. He is coughing up less and very scanty amount of white milky sputum. There is no hemoptysis. There is no chest pain or discomfort. There is no pleuritic chest pain. There is no ventricle arrhythmia seen on the monitor. There is no PND orthopnea or leg edema. There is no anginal symptoms. There is no bleeding on Lovenox. PHYSICAL EXAMINATION: The patient is of thin build but well-nourished. At present in no acute distress Selected Entries 11/11/19 11/11/19 11/11/19 14:41 15:41 16:00 Heart Rate ( 117 Monitors) Respiratory 28 H Rate Blood Pressure 102/77 Blood Pressure 85 Mean O2 Sat by Pulse 98 Oximetry Fraction of 44 Inspired Oxygen (FIO2) Oxygen Flow 6 Rate Head: Is atraumatic normocephalic. EYES: Pupils are equal round regular reactive light and accommodation. ENT is negative. Neck. Supple. There is there is no JVD. Carotids are equal there is no bruits. There is no lymphadenopathy. Lungs: There is no accessory muscle respiration use. Trachea central. There is a few dry coarse crackles in the right mid zone. There is diminished air entry and prolonged expiration. There is no rales of CHF. On percussion there is hyperresonance. HEART: S1-S2 is heard. S1 is of variable intensity. There is no S3 gallop. There is no S4 gallop.. Systolic murmur left sternal border and the apex there is no rub. There is murmur of mitral regurgitation tricuspid regurgitation present. There is no aortic stenosis murmur. ABDOMEN: Soft. Nontender there is no hepatosplenomegaly. Bowel sounds are well heard. EXTREMITIES: Femorals are well felt. Leg pulses well felt. There is no pedal edema. There is no femoral bruits. There is no cyanosis or clubbing. There is no DVT or cellulitis. There is no calf tenderness. CONTENT DEVELOPER: The patient is conscious awake alert oriented x3 with no focal deficits. PSYCHIATRIC: The patient judgment insight are intact his affect is normal. Chest X-Ray 11/07/19 00:00 IMPRESSION: Bilateral pulmonary infiltrates with no significant interval change Chest X-Ray 11/07/19 05:25 IMPRESSION: Mixed interstitial and airspace opacities bilaterally could reflect pulmonary edema or pneumonia copyright 2011 [facility]- All Rights Reserved Chest X-Ray 11/08/19 06:00 IMPRESSION: STABLE APPEARANCE OF THE CHEST. Chest X-Ray 11/10/19 00:00 IMPRESSION: No significant change. Chest X-Ray 11/11/19 05:00 IMPRESSION: Stable patchy bilateral airspace disease, greatest within the upper lobes, and small bilateral effusions. Labs- All tests 24 hr 11/10/19 11/10/19 11/11/19 21:18 21:18 04:12 WBC 11.3 H RBC 4.59 Hgb 14.3 Hct 42.9 MCV 94 MCH 31.2 MCHC 33.4 RDW 14.6 H Plt Count 91 L Lymph % (Auto) Not Reportable [place] % (Auto) Not Reportable Eos % (Auto) Not Reportable Baso % (Auto) Not Reportable Absolute Neuts (auto) Not Reportable Absolute Lymphs (auto) Not Reportable Absolute Monos (auto) Not Reportable Absolute Eos (auto) Not Reportable Absolute Basos (auto) Not Reportable Total Counted 100 Seg Neutrophils % Not Reportable Seg Neuts % (Manual) 94 H Lymphocytes % (Manual) 5 L Monocytes % (Manual) 1 L Eosinophils % (Manual) 0 Basophils % (Manual) 0 Abs Neuts (Manual) 10.6 H Abs Lymphs (Manual) 0.6 Abs Monocytes (Manual) 0.1 Absolute Eos (Manual) 0.0 Abs Basophils (Manual) 0.0 Nucleated RBCs 7 Toxic Granulation SLIGHT Toxic Vacuolation PRESENT Platelet Comment DECREASED Polychromasia SLIGHT Anisocytosis SLIGHT Sodium Potassium Chloride Carbon Dioxide Anion Gap BUN Creatinine 1.50 H Est GFR ( Amer) 56 L Est GFR (MDRD) Non-Af 46 L Glucose Calcium Phosphorus Magnesium NT-Pro-B Natriuret Pep Urine Color Urine Appearance Urine pH Ur Specific [place] Urine Protein Urine Glucose (UA) Urine Ketones Urine Blood Urine Nitrite Urine Bilirubin Urine Urobilinogen Ur Leukocyte Esterase Urine WBC (Auto) Urine RBC (Auto) Squamous Epi Cells Auto Urine Mucus (Auto) Urine Ascorbic Acid Time Trough Drawn 2118 Vancomycin Trough 9.7 11/11/19 11/11/19 11/11/19 04:12 04:12 06:13 WBC RBC Hgb Hct MCV MCH MCHC RDW Plt Count Lymph % (Auto) [place] % (Auto) Eos % (Auto) Baso % (Auto) Absolute Neuts (auto) Absolute Lymphs (auto) Absolute Monos (auto) Absolute Eos (auto) Absolute Basos (auto) Total Counted Seg Neutrophils % Seg Neuts % (Manual) Lymphocytes % (Manual) Monocytes % (Manual) Eosinophils % (Manual) Basophils % (Manual) Abs Neuts (Manual) Abs Lymphs (Manual) Abs Monocytes (Manual) Absolute Eos (Manual) Abs Basophils (Manual) Nucleated RBCs Toxic Granulation Toxic Vacuolation Platelet Comment Polychromasia Anisocytosis Sodium 136.8 L Potassium 4.4 Chloride 104 Carbon Dioxide 19 L Anion Gap 14 BUN 54 H Creatinine 1.43 H Est GFR ( Amer) 59 L Est GFR (MDRD) Non-Af 48 L Glucose 179 H Calcium 8.3 L Phosphorus 4.3 Magnesium 2.6 H NT-Pro-B Natriuret Pep 8320 H Urine Color YELLOW Urine Appearance CLEAR Urine pH 5.0 Ur Specific [place] 1.026 Urine Protein NEGATIVE Urine Glucose (UA) NEGATIVE Urine Ketones NEGATIVE Urine Blood NEGATIVE Urine Nitrite NEGATIVE Urine Bilirubin NEGATIVE Urine Urobilinogen NEGATIVE Ur Leukocyte Esterase NEGATIVE Urine WBC (Auto) 1 Urine RBC (Auto) 1 Squamous Epi Cells Auto <1 Urine Mucus (Auto) RARE Urine Ascorbic Acid NEGATIVE Time Trough Drawn Vancomycin Trough IMPRESSION/RECOMMENDATION: 1. Elevated troponin I most likely secondary to supply demand mismatch secondary to patient's hypoxemia and also the patient's junctional tachycardia. Although with the patient's EKG showing nonspecific T changes in inferior leads cannot exclude non-ST elevation SD. The patient nonspecific T changes could be due to hypoxemia since there is more generalized non-specific ST-T changes which is secondary to the patient's atrial fibrillation. The patient's troponin is trending down. The patient's blood pressure is low hence we will hold off on the patient's beta-vikki or nitrates. Would continue Lovenox. Need to consider long-term anticoagulation. would trend the patient's troponin. Later once the patient's pneumonia resolves and the patient's back to baseline then would recommend that the patient have a IV Lexiscan Cardiolite stress test. 2. Abnormal EKG: Secondary to hypoxemia and tachycardia versus secondary to a fixed lesion or combined lesion and hypoxemia and tachycardia causing ischemic EKG changes. Recommend starting the patient on aspirin 325 mg p.o. daily. 3. NEW onset ATRIAL fibrillation: No recurrence of junctional tachycardia. At present patient with atrial fibrillation.: See if we can get the patient on a small dose of Cardizem. But due to patient's blood pressure being low unable to place the patient on Cardizem. Will give digoxin to control the patient's heart rate. Will continue the patient's Lovenox to 1 mg/kg subcutaneously every 12 hours. The the patient clinically has no heart failure. Metoprolol would not be a good choice. Hence have discontinued this. The better choice will be Cardizem will start at 30 mg p.o. every 6 hours and transition to long-acting Cardizem. Note Cardizem should be effective in the presence of coronary artery disease since the patient has no heart failure and his LV ejection fraction is normal. Although Cardizem also might be helpful since the patient has significant pulmonary hypertension. I believe the mitral regurgitation although moderate by echo clinically is not of much significance and I doubt that this is causing heart failure. This will also help the patient's pulmonary hypertension. Will continue the Cardizem to 60 mg p.o. every 6 hours. We will also give extra dose of digoxin as needed. Later we will transition to long- acting Cardizem preparation. Will discuss with the patient about long-term chronic anticoagulation. 4. Pneumonia Patient on antibiotics. The patient is COVID19 test were negative x2 5. Dehydration with prerenal state: Continue IV fluids aggressively note that the patient's arterial systolic function is normal. 6. Severe pulmonary hypertension: Suspect this will be much less once the pneumonia is resolved. Cardizem may help this to a certain extent. We will also later start the patient on a PANCHO inhibitor or ARB. 7. Moderately severe tricuspid regurgitation 8.. COPD by exam 9. History of tobacco abuse: Tobacco cessation counseling done 3 minutes spent on this. 10.. Moderate eccentric mitral regurgitation: Start the patient on Cardizem. 11. The patient's corrected Oumar Vascor is 1. But would strongly recommend chronic anticoagulation, since the patient has no risks of increased bleeding complications. 12. Mild renal insufficiency: Since expect that this will improve once her initial insult of the pneumonia and atrial fibrillation with rapid ventricular response resolved and patient back to baseline. Medications reviewed. Medications adjusted. Medical decision making is of high complexity. Medical management and medical regimen discussed with the scabbler. Medical decision making is of high complexity 40 minutes spent on the patient more than 50% time spent in direct patient care.
--- NOTE | 2019-11-11 18:22 | PDOC CRITICAL CARE PROG REPORT ---
General Date:: 11/11/19 ICU Day:: 5 Hospital Day:: 5 Resuscitation Status: Full Code Events in the past 12 to 24 Hours:: This 74-year-old male smoker was admitted on 11/07/2019 with complaints of increasing shortness of breath, diffuse chest pain and myalgia over a period of 24 hours prior to presentation. Due to clinical suspicion for COVID-19, the patient was maintained in isolation after his rapid test was negative, pending results of a repeat test. Initial laboratory evaluation was notable for elevated troponin and proBNP. His AST ALT ratio was roughly 2-1. EKG showed abnormal T waves (flattening and inversion) in limb leads II, III and aVF. He was afebrile but did present with leukocytosis. He was started on empiric Zosyn and vancomycin with subsequent decrease in WBC count. 2D echo (11/06) was reported to be suboptimal in quality. In particular, apical and basal inferior wall was not well visualized. LVEF was estimated to be greater than 65% with normal diastolic function. Eccentric, posteriorly directed, moderate mitral regurgitation was noted. 11/08: Monitor shows atrial fibrillation. Patient denies any history of atrial fibrillation. On the other hand, he also states that he is unaware of his irregular heartbeat. No chest pain at this time. He denies nausea/vomiting. He is on BiPAP 03/08, FiO2 35% during clinical interview. 11/09: Monitor continues to show atrial fibrillation, in and out of rapid ventricular response. Now on Cardizem 30 mg p.o. every 6 hours. [place] [address]. No chest pain. No nausea/vomiting. On nasal cannula. Blood cultures (11/06, 1 of 2 bottles) growing gram-positive oniel. 11/10: Monitor continues to show atrial fibrillation with rapid ventricular response. Currently on Cardizem 60 mg p.o. every 6 hours. Got 1 dose of digoxin 0.25 mg IV single dose yesterday. SBP 116540. No chest pain. No nausea/vomiting. On 6 LPM via nasal cannula. He is able to get out of bed to the commode and back. WBC 11.3. On empiric Zosyn/vancomycin. He has been afebrile throughout his entire hospitalization. Review of systems relevant to events:: Pulmonary: Exertional dyspnea with dyspnea at rest Cardiovascular: Chest pain Reason for ICU Addmission:: Respiratory failure, pneumonia, risk of intubation - Medications: Medications reviewed and adjusted accordingly: Yes Physical Exam Vital Signs: Temp Pulse Resp BP Pulse Ox 97.9 F 105 H 29 H 100/67 91 L 11/11/19 05:00 11/11/19 08:54 11/11/19 11:00 11/11/19 10:41 11/11/19 10:40 Intake & Output 11/10/19 11/11/19 11/12/19 06:59 06:59 06:59 Intake Total 1437 536 Output Total 400 260 300 Balance 1037 276 -300 Weight 83.4 kg 83.3 kg Weight/Height Weight 83.3 kg Height 1.75 m General appearance: PRESENT: no acute distress, well-developed, well-nourished Head exam: PRESENT: atraumatic, normocephalic Eye exam: PRESENT: conjunctiva pink, EOMI, PERRLA. ABSENT: scleral icterus Mouth exam: PRESENT: moist, tongue midline Neck exam: ABSENT: carotid bruit, JVD, lymphadenopathy, thyromegaly Respiratory exam: PRESENT: crackles - R > L. ABSENT: rales, rhonchi, wheezes Cardiovascular exam: PRESENT: irregular rhythm, tachycardia. ABSENT: diastolic murmur, rubs, systolic murmur Pulses: PRESENT: normal dorsalis pedis pul GI/Abdominal exam: PRESENT: normal bowel sounds, soft. ABSENT: distended, guarding, mass, organolmegaly, rebound, tenderness Extremities exam: PRESENT: full ROM. ABSENT: calf tenderness, clubbing, pedal edema Neurological exam: PRESENT: alert, awake, oriented to person, oriented to place, oriented to time, oriented to situation, CN II-XII grossly intact. ABSENT: motor sensory deficit Psychiatric exam: PRESENT: appropriate affect, normal mood. ABSENT: agitated, anxious Skin exam: PRESENT: dry, intact, warm. ABSENT: cyanosis, rash Laboratory/Radiographs Laboratory Results: 11/11/19 04:12 11/11/19 04:12 11/10/19 11/11/19 11/11/19 21:18 04:12 04:12 WBC 11.3 H RBC 4.59 Hgb 14.3 Hct 42.9 MCV 94 MCH 31.2 MCHC 33.4 RDW 14.6 H Plt Count 91 L Seg Neutrophils % Not Reportable Sodium 136.8 L Potassium 4.4 Chloride 104 Carbon Dioxide 19 L Anion Gap 14 BUN 54 H Creatinine 1.50 H 1.43 H Est GFR ( Amer) 56 L 59 L Glucose 179 H Calcium 8.3 L Phosphorus 4.3 Magnesium 2.6 H Urine Color Urine Appearance Urine pH Ur Specific [place] Urine Protein Urine Glucose (UA) Urine Ketones Urine Blood Urine Nitrite Ur Leukocyte Esterase Urine WBC (Auto) Urine RBC (Auto) 11/11/19 06:13 WBC RBC Hgb Hct MCV MCH MCHC RDW Plt Count Seg Neutrophils % Sodium Potassium Chloride Carbon Dioxide Anion Gap BUN Creatinine Est GFR ( Amer) Glucose Calcium Phosphorus Magnesium Urine Color YELLOW Urine Appearance CLEAR Urine pH 5.0 Ur Specific [place] 1.026 Urine Protein NEGATIVE Urine Glucose (UA) NEGATIVE Urine Ketones NEGATIVE Urine Blood NEGATIVE Urine Nitrite NEGATIVE Ur Leukocyte Esterase NEGATIVE Urine WBC (Auto) 1 Urine RBC (Auto) 1 11/07/19 05:45 Blood Blood Culture (PCR) - Final 11/07/19 11/07/19 11/07/19 06:00 11:12 20:13 Troponin I 2.060 6.020 Cancelled NT-Pro-B Natriuret Pep 81758 H Cancelled 11/07/19 11/08/19 11/08/19 21:00 04:06 09:26 Troponin I 5.440 3.060 NT-Pro-B Natriuret Pep 93725 H 24734 H 11/09/19 11/10/19 11/11/19 04:24 04:00 04:12 Troponin I 3.120 2.490 NT-Pro-B Natriuret Pep 47183 H 8320 H Impressions: Chest X-Ray 11/11/19 05:00 IMPRESSION: Stable patchy bilateral airspace disease, greatest within the upper lobes, and small bilateral effusions. All labs, radiographs, diagnostic studies and EKGs were personally reviewed: Yes In addition, reports of radiographic and diagnostic studies were read: Yes Assessment and Plan - Diagnosis (1) Non-ST elevation myocardial infarction (NSTEMI) Is this a current diagnosis for this admission?: Yes Plan: Continue aspirin, Lovenox 1 mg/kg subcutaneously every [address] Fowler's input appreciated. On Cardizem 60 mg p.o. every 6 hours. Eventual plan for nuclear stress test noted. (2) Atrial fibrillation with RVR Is this a current diagnosis for this admission?: Yes Plan: Cardiology help appreciated. On Cardizem 60 mg p.o. every 6 hours. Will need to transition to oral anticoagulant. (3) Multilobar lung infiltrate Is this a current diagnosis for this admission?: Yes Plan: I doubt that this is an infectious pneumonia. Furosemide 40 mg IV single dose today. Chest x-ray in a.m. (4) Elevated brain natriuretic peptide (BNP) level Is this a current diagnosis for this admission?: Yes (5) COVID-19 ruled out by laboratory testing Is this a current diagnosis for this admission?: Yes (6) COPD (chronic obstructive pulmonary disease) Qualifiers: COPD type: emphysema Emphysema type: unspecified Qualified Code(s): J43.9 - Emphysema, unspecified Is this a current diagnosis for this admission?: Yes (7) Tobacco abuse Is this a current diagnosis for this admission?: Yes (8) Tobacco abuse counseling Is this a current diagnosis for this admission?: Yes Critical Time Critical Time (minutes): 60 Level of Care: ICU -: 1. The care of a critical patient is a dynamic process. This note is a agricultural sales representative synopsis but static in nature. The timeframe for treatments given in order is not necessarily the actual time these treatments may have been done. 2. This patient requires critical care secondary to ongoing requirements for therapy not offered or safe outside the critical care environment. Transfer to a lower level of care will result in altered life or limb morbidity and mortality. 3. Multidisciplinary rounds completed. 4. ABCDE bundle addressed.
[2019-11-11] MEDS: VANCOMYCIN HCL 1,500 MG in DEXTROSE 5%-WATER 250 ML IV SCH (22:51)
[2019-11-12] MEDS: DILTIAZEM HCL 60 MG TABLET PO SCH ×4 (00:33→18:40)
[2019-11-12] MEDS: PIPERACILLIN SODIUM/TAZOBACTAM 3.375 GM in NORMAL SALINE 100 ML IV SCH ×4 (00:34→20:51)
[2019-11-12] MEDS: IPRATROPIUM/ALBUTEROL 0.5-2.5 MG/3 ML AMPUL NEB SCH ×3 (02:31→13:49)
[2019-11-12 03:59] LABS: APPEARANCE,URINE SLIGHTLY-CLOUDY; BILIRUBIN,URINE NEGATIVE (NEGATIVE); COLOR,URINE YELLOW; GLUCOSE, URINE NEGATIVE (NEGATIVE); KETONES,URINE NEGATIVE (NEGATIVE); LEUKOCYTE ESTERASE,URINE NEGATIVE (NEGATIVE); NITRITE,URINE NEGATIVE (NEGATIVE); PROTEIN,URINE NEGATIVE (NEGATIVE); URINE SPECIFIC GRAVITY 1.024; UROBILINOGEN,URINE NEGATIVE mg/dL (<2.0)
[2019-11-12 05:26] LABS: ANION GAP 10 (5-19); BLOOD UREA NITROGEN 51 mg/dL (7-20); CALCIUM 8.3 mg/dL (8.4-10.2); CARBON DIOXIDE 22 mmol/L (22-30); CHLORIDE 105 mmol/L (98-107); GLUCOSE 164 mg/dL (75-110); PHOSPHORUS 4.5 mg/dL (2.5-4.5); POTASSIUM 4.3 mmol/L (3.6-5.0)
[2019-11-12 06:17] LABS: HEMATOCRIT 45.1 % (37.9-51.0); HEMOGLOBIN 14.8 g/dL (13.5-17.0)
[2019-11-12 06:18] LABS: MEAN CORPUSCULAR HEMOGLOBIN 31.1 pg (27.0-33.4); MEAN CORPUSCULAR HGB CONC 32.9 g/dL (32.0-36.0); MEAN CORPUSCULAR VOLUME 94 fl (80-97); PLATELET COUNT 94 10^3/uL (150-450); RED BLOOD COUNT 4.77 10^6/uL (4.35-5.55); WHITE BLOOD COUNT 11.4 10^3/uL (4.0-10.5)
[2019-11-12] MEDS: PANTOPRAZOLE SODIUM 40 MG TABLET.DR PO SCH (06:25)
[2019-11-12 07:15] LABS: DIGOXIN 1.25 ng/mL (0.8-2.0)
--- NOTE | 2019-11-12 08:35 | RADIOLOGY REPORT (SQ) ---
EXAM DESCRIPTION: CHEST SINGLE VIEW IMAGES COMPLETED DATE/TIME: 11/12/2019 6:50 am REASON FOR STUDY: abn CXR, elevated BNP, mitral regurgitation COMPARISON: 18 20. EXAM PARAMETERS: NUMBER OF VIEWS: One view. TECHNIQUE: Single frontal radiographic view of the chest acquired. RADIATION DOSE: NA LIMITATIONS: None. FINDINGS: LUNGS AND PLEURA: Diffuse airspace disease, essentially unchanged. Bilateral pleural effu sions. MEDIASTINUM AND HILAR STRUCTURES: No masses. Contour normal. HEART AND VASCULAR STRUCTURES: Heart normal in size. Normal vasculature. BONES: No acute findings. HARDWARE: None in the chest. OTHER: No other significant finding. IMPRESSION: NO SIGNIFICANT INTERVAL CHANGE. TECHNICAL DOCUMENTATION: JOB ID: [id number] 2010 [employer]- All Rights Reserved Reading location - IP/workstation name: [email or web address]
[2019-11-12] MEDS: BUDESONIDE NEB 0.25 MG/2 ML AMPUL NEB SCH (09:32)
[2019-11-12] MEDS: ENOXAPARIN SODIUM INJ 80 MG/0.8 ML DISP.SYRIN SUBCUT SCH ×2 (11:00→22:23)
[2019-11-12] MEDS: ASPIRIN 325 MG TABLET PO SCH (11:00)
[2019-11-12] MEDS: LACTOBACILLUS ACIDOPHILUS 250 MG TAB PO SCH ×2 (11:00→20:58)
--- NOTE | 2019-11-12 14:18 | PDOC CRITICAL CARE PROG REPORT ---
General Date:: 11/12/19 ICU Day:: 6 Hospital Day:: 6 Resuscitation Status: Full Code Events in the past 12 to 24 Hours:: This 74-year-old male smoker was admitted on 11/07/2019 with complaints of increasing shortness of breath, diffuse chest pain and myalgia over a period of 24 hours prior to presentation. Due to clinical suspicion for COVID-19, the patient was maintained in isolation after his rapid test was negative, pending results of a repeat test. Initial laboratory evaluation was notable for elevated troponin and proBNP. His AST ALT ratio was roughly 2-1. EKG showed abnormal T waves (flattening and inversion) in limb leads II, III and aVF. He was afebrile but did present with leukocytosis. He was started on empiric Zosyn and vancomycin with subsequent decrease in WBC count. 2D echo (11/06) was reported to be suboptimal in quality. In particular, apical and basal inferior wall was not well visualized. LVEF was estimated to be greater than 65% with normal diastolic function. Eccentric, posteriorly directed, moderate mitral regurgitation was noted. 11/08: Monitor shows atrial fibrillation. Patient denies any history of atrial fibrillation. On the other hand, he also states that he is unaware of his irregular heartbeat. No chest pain at this time. He denies nausea/vomiting. He is on BiPAP 03/08, FiO2 35% during clinical interview. 11/09: Monitor continues to show atrial fibrillation, in and out of rapid ventricular response. Now on Cardizem 30 mg p.o. every 6 hours. SBP 59789. No chest pain. No nausea/vomiting. On nasal cannula. Blood cultures (11/06, 1 of 2 bottles) growing gram-positive oniel. 11/10: Monitor continues to show atrial fibrillation with rapid ventricular response. Currently on Cardizem 60 mg p.o. every 6 hours. Got 1 dose of digoxin 0.25 mg IV single dose yesterday. SBP 069975. No chest pain. No nausea/vomiting. On 6 LPM via nasal cannula. He is able to get out of bed to the commode and back. WBC 11.3. On empiric Zosyn/vancomycin. He has been afebrile throughout his entire hospitalization. 11/11: Atrial fibrillation with rapid ventricular response, on Cardizem 60 mg p.o. every 6 hours. SBP 961966. No chest pain. No nausea/vomiting. Denies shortness of breath. On 2.5 LPM via nasal cannula. WBC 11.4. Afebrile. On empiric Zosyn/vancomycin. Review of systems relevant to events:: Pulmonary: Exertional dyspnea with dyspnea at rest Cardiovascular: Chest pain Reason for ICU Addmission:: Respiratory failure, pneumonia, risk of intubation - Medications: Medications reviewed and adjusted accordingly: Yes Physical Exam Vital Signs: Temp Pulse Resp BP Pulse Ox 98.1 F 84 30 H 115/90 H 90 L 11/12/19 03:07 11/12/19 13:50 11/12/19 13:50 11/12/19 05:41 11/12/19 13:50 Intake & Output 11/11/19 11/12/19 11/13/19 06:59 06:59 06:59 Intake Total 636 900 480 Output Total 260 850 0 Balance 376 50 480 Weight 83.3 kg 83.4 kg Weight/Height Weight 83.4 kg Height 1.75 m General appearance: PRESENT: no acute distress, well-developed, well-nourished Head exam: PRESENT: atraumatic, normocephalic Eye exam: PRESENT: conjunctiva pink, EOMI, PERRLA. ABSENT: scleral icterus Mouth exam: PRESENT: moist, tongue midline Neck exam: ABSENT: carotid bruit, JVD, lymphadenopathy, thyromegaly Respiratory exam: PRESENT: crackles - Right greater than left, unlabored. ABSENT: rhonchi, tachypnea Cardiovascular exam: PRESENT: irregular rhythm, systolic murmur - Grade 2/6, mitral. ABSENT: gallop, rubs Pulses: PRESENT: normal dorsalis pedis pul GI/Abdominal exam: PRESENT: normal bowel sounds, soft. ABSENT: distended, guarding, mass, organolmegaly, rebound, tenderness Extremities exam: PRESENT: full ROM. ABSENT: calf tenderness, clubbing, pedal edema Neurological exam: PRESENT: alert, awake, oriented to person, oriented to place, oriented to time, oriented to situation, CN II-XII grossly intact. ABSENT: motor sensory deficit Skin exam: PRESENT: dry, intact, warm. ABSENT: cyanosis, rash Laboratory/Radiographs Laboratory Results: 11/12/19 04:14 11/12/19 04:14 0811/12/19 11/12/19 03:30 04:14 04:14 WBC 11.4 H RBC 4.77 Hgb 14.8 Hct 45.1 MCV 94 MCH 31.1 MCHC 32.9 RDW 15.0 H Plt Count 94 L Sodium 136.6 L Potassium 4.3 Chloride 105 Carbon Dioxide 22 Anion Gap 10 BUN 51 H Creatinine 1.50 H Est GFR ( Amer) 56 L Glucose 164 H Calcium 8.3 L Phosphorus 4.5 Magnesium 2.8 H Urine Color YELLOW Urine Appearance SLIGHTLY-CLOUDY Urine pH 5.0 Ur Specific Henderson 1.024 Urine Protein NEGATIVE Urine Glucose (UA) NEGATIVE Urine Ketones NEGATIVE Urine Blood NEGATIVE Urine Nitrite NEGATIVE Ur Leukocyte Esterase NEGATIVE Urine WBC (Auto) 1 Urine RBC (Auto) 0 11/07/19 05:45 Blood Blood Culture (PCR) - Final 11/07/19 06:00 Blood Blood Culture - Final NO GROWTH IN 5 DAYS 11/07/19 11/07/19 11/07/19 06:00 11:12 20:13 Troponin I 2.060 6.020 Cancelled NT-Pro-B Natriuret Pep 30894 H Cancelled 11/07/19 11/08/19 11/08/19 21:00 04:06 09:26 Troponin I 5.440 3.060 NT-Pro-B Natriuret Pep 90049 H 29587 H 11/09/19 11/10/19 11/11/19 04:24 04:00 04:12 Troponin I 3.120 2.490 NT-Pro-B Natriuret Pep 36220 H 8320 H 11/12/19 04:14 Troponin I 1.990 NT-Pro-B Natriuret Pep Impressions: Chest X-Ray 11/12/19 05:00 IMPRESSION: NO SIGNIFICANT INTERVAL CHANGE. All labs, radiographs, diagnostic studies and EKGs were personally reviewed: Yes In addition, reports of radiographic and diagnostic studies were read: Yes Assessment and Plan - Diagnosis (1) Non-ST elevation myocardial infarction (NSTEMI) Is this a current diagnosis for this admission?: Yes Plan: Continue aspirin, Lovenox 1 mg/kg subcutaneously every [address] Fowler's input appreciated. On Cardizem 60 mg p.o. every 6 hours. Eventual plan for nuclear stress test noted. (2) Atrial fibrillation with RVR Is this a current diagnosis for this admission?: Yes Plan: Cardiology help appreciated. On Cardizem 60 mg p.o. every 6 hours. Will need to transition to oral anticoagulant. (3) Multilobar lung infiltrate Is this a current diagnosis for this admission?: Yes Plan: I doubt that this is an infectious pneumonia. Stop Zosyn/vancomycin after 7-day course. Patient reported diarrhea yesterday and started on L acidophilus. (4) Elevated brain natriuretic peptide (BNP) level Is this a current diagnosis for this admission?: Yes (5) COVID-19 ruled out by laboratory testing Is this a current diagnosis for this admission?: Yes (6) COPD (chronic obstructive pulmonary disease) Qualifiers: COPD type: emphysema Emphysema type: unspecified Qualified Code(s): J43.9 - Emphysema, unspecified Is this a current diagnosis for this admission?: Yes Plan: Despite his history of tobacco abuse, the patient reports that he has never been prescribed COPD maintenance medications. Additionally, ABG results are not consistent with hypercapnia at baseline. Consequently, I will discontinue DuoNeb and Pulmicort. (7) Tobacco abuse Is this a current diagnosis for this admission?: Yes (8) Tobacco abuse counseling Is this a current diagnosis for this admission?: Yes Plan Summary: OK to transfer to [facility] from pulmonary/critical care standpoint. Critical Time Critical Time (minutes): 45 Level of Care: ICU -: 1. The care of a critical patient is a dynamic process. This note is a public health representative synopsis but static in nature. The timeframe for treatments given in order is not necessarily the actual time these treatments may have been done. 2. This patient requires critical care secondary to ongoing requirements for therapy not offered or safe outside the critical care environment. Transfer to a lower level of care will result in altered life or limb morbidity and mortality. 3. Multidisciplinary rounds completed. 4. ABCDE bundle addressed.
[2019-11-12] MEDS ORDERED: DIGOXIN INJ 0.5 MG/2 ML AMPULE IV ONE (15:30)
--- NOTE | 2019-11-12 19:04 | Progress Note ---
Provider Note Provider Note: Cardiology PROGRESS NOTE by Dr. Hannah Fowler on 11/12/2019. OBJECTIVE: The patient continues to be in atrial fibrillation with ventricular response in the high 90s.. He states his breathing is better. He is coughing up less and very scanty amount of white milky sputum. There is no hemoptysis. There is no chest pain or discomfort. There is no pleuritic chest pain. There is no ventricle arrhythmia seen on the monitor. There is no PND orthopnea or leg edema. There is no anginal symptoms. There is no bleeding on Lovenox. The procurement specialist is transferring the patient out of ICU. PHYSICAL EXAMINATION: The patient is of thin build but well-nourished. At present in no acute distress. Selected Entries 11/12/19 11/12/19 11/12/19 12:00 12:52 13:00 Pulse Rate Heart Rate ( 90 Monitors) Respiratory 33 H Rate O2 Sat by Pulse Oximetry Fraction of 32 Inspired Oxygen (FIO2) Oxygen Flow 3 Rate BP 100/70 13:50 Pulse Rate 84 Heart Rate ( Monitors) Respiratory Rate O2 Sat by Pulse 90 L Oximetry Fraction of Inspired Oxygen (FIO2) Oxygen Flow Rate Head: Is atraumatic normocephalic. EYES: Pupils are equal round regular reactive light and accommodation. ENT is negative. Neck. Supple. There is there is no JVD. Carotids are equal there is no bruits. There is no lymphadenopathy. Lungs: There is no accessory muscle respiration use. Trachea central. There is a few dry coarse crackles in the right mid zone. There is diminished air entry and prolonged expiration. There is no rales of CHF. On percussion there is hyperresonance. HEART: S1-S2 is heard. S1 is of variable intensity. There is no S3 gallop. There is no S4 gallop.. Systolic murmur left sternal border and the apex there is no rub. There is murmur of mitral regurgitation tricuspid regurgitation present. There is no aortic stenosis murmur. ABDOMEN: Soft. Nontender there is no hepatosplenomegaly. Bowel sounds are well heard. EXTREMITIES: Femorals are well felt. Leg pulses well felt. There is no pedal edema. There is no femoral bruits. There is no cyanosis or clubbing. There is no DVT or cellulitis. There is no calf tenderness. NARCOTICS AND VICE DETECTIVE: The patient is conscious awake alert oriented x3 with no focal deficits. PSYCHIATRIC: The patient judgment insight are intact his affect is normal. IMPRESSION/RECOMMENDATION: 1. Elevated troponin I most likely secondary to supply demand mismatch secondary to patient's hypoxemia and also the patient's junctional tachycardia. Although with the patient's EKG showing nonspecific T changes in inferior leads cannot exclude non-ST elevation CO. The patient nonspecific T changes could be due to hypoxemia since there is more generalized non-specific ST-T changes which is secondary to the patient's atrial fibrillation. The patient's troponin is trending down. The patient's blood pressure is low hence we will hold off on the patient's beta-vikki or nitrates. Would continue Lovenox. Need to consider long-term anticoagulation. would trend the patient's troponin. Later once the patient's pneumonia resolves and the patient's back to baseline then would recommend that the patient have a IV Lexiscan Cardiolite stress test. 2. Abnormal EKG: Secondary to hypoxemia and tachycardia versus secondary to a fixed lesion or combined lesion and hypoxemia and tachycardia causing ischemic EKG changes. Recommend starting the patient on aspirin 325 mg p.o. daily. 3. NEW onset ATRIAL fibrillation: No recurrence of junctional tachycardia. At present patient with atrial fibrillation.: See if we can get the patient on a small dose of Cardizem. But due to patient's blood pressure being low unable to place the patient on Cardizem. Will give digoxin to control the patient's heart rate. Will continue the patient's Lovenox to 1 mg/kg subcutaneously every 12 hours. Continue Cardizem at 60 mg p.o. every 6 hours. We will also give extra dose of digoxin as needed. Later we will transition to long-acting Cardizem preparation. Will discuss with the patient about long-term chronic anticoagulation. 4. Pneumonia Patient on antibiotics. The patient is COVID19 test were negative x2 5. Dehydration with prerenal state: Continue IV fluids aggressively note that the patient's arterial systolic function is normal. 6. Severe pulmonary hypertension: Suspect this will be much less once the pneumonia is resolved. Cardizem may help this to a certain extent. We will also later start the patient on a PANCHO inhibitor or ARB. 7. Moderately severe tricuspid regurgitation 8.. COPD by exam 9. History of tobacco abuse: Tobacco cessation counseling done 3 minutes spent on this. 10.. Moderate eccentric mitral regurgitation: Start the patient on Cardizem. 11. The patient's corrected Oumar Vascor is 1. But would strongly recommend chronic anticoagulation, since the patient has no risks of increased bleeding complications. 12. Mild renal insufficiency: Since expect that this will improve once her initial insult of the pneumonia and atrial fibrillation with rapid ventricular response resolved and patient back to baseline. Medications reviewed. Medications adjusted. Medical decision making is of high complexity. Medical management and medical regimen discussed with the procurement specialist. Medical decision making is of high complexity 40 minutes spent on the patient more than 50% time spent in direct patient care.
--- NOTE | 2019-11-12 19:23 | RADIOLOGY REPORT (SQ) ---
EXAM DESCRIPTION: CT CHEST WITHOUT IMAGES COMPLETED DATE/TIME: 11/12/2019 7:05 pm REASON FOR STUDY: Pneumonia COMPARISON: None. TECHNIQUE: CT scan performed of the chest without intravenous contrast. Images reviewed with lung, soft tissue and bone windows. Reconstructed coronal and sagittal MPR images reviewed. All images st ored on PACS. All CT scanners at this facility use dose modulation, iterative reconstruction, and/or weight based d osing when appropriate to reduce radiation dose to as low as reasonably achievable (ALARA). [facility]: Dose Right [facility]: CareDose [facility]: Dose Right [facility]: Teradose 4D [facility]: [employer] RADIATION DOSE: CT Rad equipment meets quality standard of care and radiation dose reduction techniq ues were employed. CTDIvol: 10.2 mGy. DLP: 403 mGy-cm. mGy. LIMITATIONS: No technical limitations. FINDINGS: LUNGS AND PLEURA: Extensive ground-glass infiltrates in both upper lobes and in the perihi lar region. Bilateral pleural effusions, right larger than left. Associated atelectasis in the lowe r lobes. HILAR AND MEDIASTINAL STRUCTURES: No identified masses or abnormal nodes. No obvious aneurysm. HEART AND VASCULAR STRUCTURES: No aneurysm. No pericardial effusion. Borderline cardiomegaly. UPPER ABDOMEN: No significant findings. Limited exam. THYROID AND OTHER SOFT TISSUES: No masses. No adenopathy. BONES: No significant finding. HARDWARE: None in the chest. OTHER: No other significant findings. IMPRESSION: 1. Borderline cardiomegaly. 2. Extensive ground-glass infiltrates. Nonspecific. May indicate chronic interstitial changes, int erstitial edema, or atypical infectious/ inflammatory process. 3. Significant bilateral pleural effusions, right more than left. TECHNICAL DOCUMENTATION: JOB ID: [id number] Quality ID # [id number]: Final reports with documentation of one or more dose reduction techniques (e.g., Au tomated exposure control, adjustment of the mA and/or kV according to patient size, use of iterative reconstruction technique) 2010 [employer]- All Rights Reserved Reading location - IP/workstation name: [email or web address]
[2019-11-12] MEDS: VANCOMYCIN HCL 1,500 MG in DEXTROSE 5%-WATER 250 ML IV SCH (22:26)
[2019-11-13] MEDS: DILTIAZEM HCL 60 MG TABLET PO SCH ×4 (00:55→17:17)
[2019-11-13] MEDS: PIPERACILLIN SODIUM/TAZOBACTAM 3.375 GM in NORMAL SALINE 100 ML IV SCH ×4 (00:55→17:17)
[2019-11-13] MEDS: PANTOPRAZOLE SODIUM 40 MG TABLET.DR PO SCH (06:24)
[2019-11-13 06:36] LABS: HEMATOCRIT 46.1 % (37.9-51.0); HEMOGLOBIN 15.3 g/dL (13.5-17.0); MEAN CORPUSCULAR HEMOGLOBIN 31.6 pg (27.0-33.4); MEAN CORPUSCULAR HGB CONC 33.1 g/dL (32.0-36.0); MEAN CORPUSCULAR VOLUME 95 fl (80-97); RED BLOOD COUNT 4.84 10^6/uL (4.35-5.55)
[2019-11-13 07:01] LABS: ANION GAP 12 (5-19); BLOOD UREA NITROGEN 61 mg/dL (7-20); CALCIUM 8.1 mg/dL (8.4-10.2); CARBON DIOXIDE 21 mmol/L (22-30); CHLORIDE 104 mmol/L (98-107); GLUCOSE 137 mg/dL (75-110); POTASSIUM 5.4 mmol/L (3.6-5.0)
[2019-11-13 07:04] LABS: ABSOLUTE LYMPHOCYTES# (MANUAL) 0.9 10^3/uL (0.5-4.7); ABSOLUTE MONOCYTES # (MANUAL) 0.6 10^3/uL (0.1-1.4); BAND NEUTROPHILS % (MANUAL) 1 % (3-5); BASOPHILS % (MANUAL) 0 % (0-2); EOSINOPHILS % (MANUAL) 0 % (0-6); LYMPHOCYTES % (MANUAL) 6 % (13-45); MONOCYTES % (MANUAL) 4 % (3-13); NUCLEATED RED BLOOD CELLS 12 /100 WBC (0); SEGMENTED NEUTROPHILS % (MAN) 89 % (42-78); TOTAL CELLS COUNTED 100
[2019-11-13 07:08] LABS: ANISOCYTOSIS 1+; PLATELET COMMENT DECREASED; POLYCHROMASIA 1+
[2019-11-13 07:09] LABS: PLATELET COUNT 80 10^3/uL (150-450); WHITE BLOOD COUNT 15.4 10^3/uL (4.0-10.5)
[2019-11-13] MEDS: LACTOBACILLUS ACIDOPHILUS 250 MG TAB PO SCH ×3 (09:12→17:17)
[2019-11-13] MEDS: ASPIRIN 325 MG TABLET PO SCH (09:12)
[2019-11-13] MEDS: ENOXAPARIN SODIUM INJ 80 MG/0.8 ML DISP.SYRIN SUBCUT SCH (09:12)
--- NOTE | 2019-11-13 10:59 | PDOC PROGRESS REPORT ---
Subjective Progress Note for:: 11/13/19 Subjective:: 74-year-old gentleman with no known past medical history other than tobacco abuse of 1 pack/day since childhood as per his son. He has been active and independent and cares for his ailing . Patient developed shortness of breath, diffuse chest pain and myalgia over the past 24 hours and presented to the emergency department. SPO2 upon arrival was 60%. He was placed on BiPAP and has since dramatically improved his oxygenation (FiO2 100%). I was called by the emergency room physician to evaluate Mr. Bernal for possible admission to the intensive care unit. Chest x-ray shows bilateral patchy opacities consistent with pneumonia. Chest x-ray has similar pattern to that of previous COVID-19 patients. He has been admitted to the intensive care unit for acute hypoxemic respiratory failure in the setting of pneumonia possibly related to COVID-19. 11/08/19-Rapid COVID test negative. [facility] test pending. Overall no change 11/08: Monitor shows atrial fibrillation. Patient denies any history of atrial fibrillation. On the other hand, he also states that he is unaware of his irregular heartbeat. No chest pain at this time. He denies nausea/vomiting. H e is on BiPAP 03/08, FiO2 35% during clinical interview. 11/09: Monitor continues to show atrial fibrillation, in and out of rapid ventricular response. Now on Cardizem 30 mg p.o. every 6 hours. SBP 69666. No chest pain. No nausea/vomiting. On nasal cannula. Blood cultures (11/06, 1 of 2 bottles) growing gram-positive oniel. 11/10: Monitor continues to show atrial fibrillation with rapid ventricular response. Currently on Cardizem 60 mg p.o. every 6 hours. Got 1 dose of digoxin 0.25 mg IV single dose yesterday. SBP 753442. No chest pain. No nausea/vomiting. On 6 LPM via nasal cannula. He is able to get out of bed to the commode and back. WBC 11.3. On empiric Zosyn/vancomycin. He has been afebrile throughout his entire hospitalization. 11/11: Atrial fibrillation with rapid ventricular response, on Cardizem 60 mg p.o. every 6 hours. SBP 113167. No chest pain. No nausea/vomiting. Denies shortness of breath. On 2.5 LPM via nasal cannula. WBC 11.4. Afebrile. On empiric Zosyn/vancomycin. 11/13/2019-at the time of my examination patient is on BiPAP with 70% oxygen. CT scan done yesterday indicated cardiomegaly, extensive groundglass infiltrates which are nonspecific. May indicate chronic interstitial changes, interstitial edema or atypical infectious/inflammatory process. Consultation with the pulmonology is requested. On examination both feet are cold to touch. Arterial Doppler is requested. Called pharmacy to adjust the Lovenox treatment dose at this time. Reason For Visit: ACUTE RESPIRATORY FAILURE,POSSIBLE COVID-19 Physical Exam Vital Signs: Temp Pulse Resp BP Pulse Ox 97.5 F 108 H 29 H 142/81 H 95 11/13/19 07:49 11/13/19 07:49 11/13/19 07:49 11/13/19 07:49 11/13/19 07:49 Intake & Output 11/12/19 11/13/19 11/14/19 06:59 06:59 06:59 Intake Total 900 1340 350 Output Total 850 100 Balance 50 1240 350 Weight 83.4 kg 83.5 kg General appearance: PRESENT: no acute distress, well-developed, well-nourished Head exam: PRESENT: atraumatic Eye exam: PRESENT: conjunctiva pink, PERRLA Ear exam: PRESENT: normal external ear exam Mouth exam: PRESENT: moist, tongue midline Teeth exam: PRESENT: poor dentation Neck exam: ABSENT: carotid bruit, JVD, lymphadenopathy, thyromegaly Respiratory exam: PRESENT: crackles, decreased breath sounds Cardiovascular exam: PRESENT: irregular rhythm, tachycardia GI/Abdominal exam: PRESENT: normal bowel sounds, soft. ABSENT: distended, guarding, mass, organolmegaly, rebound, tenderness Rectal exam: PRESENT: deferred Extremities exam: PRESENT: other - Both feet are extremely cold to touch. Peripheral pulses are poor. Neurological exam: PRESENT: alert, awake, oriented to person, oriented to place, oriented to time, oriented to situation, CN II-XII grossly intact. ABSENT: motor sensory deficit Psychiatric exam: PRESENT: appropriate affect, normal mood. ABSENT: homicidal ideation, suicidal ideation Results Laboratory Results: 11/13/19 05:56 11/13/19 05:56 11/13/19 11/13/19 05:56 05:56 WBC 15.4 H RBC 4.84 Hgb 15.3 Hct 46.1 MCV 95 MCH 31.6 MCHC 33.1 RDW 15.0 H Plt Count 80 L Seg Neutrophils % Not Reportable Sodium 136.9 L Potassium 5.4 H Chloride 104 Carbon Dioxide 21 L Anion Gap 12 BUN 61 H Creatinine 1.51 H Est GFR ( Amer) 55 L Glucose 137 H Calcium 8.1 L Magnesium 2.8 H 11/07/19 05:45 Blood Blood Culture (PCR) - Final 11/07/19 05:45 Blood Blood Culture - Final Bacillus Sp. Not Anthracis 11/07/19 11/07/19 11/07/19 06:00 11:12 20:13 Troponin I 2.060 6.020 Cancelled NT-Pro-B Natriuret Pep [id number] H Cancelled 11/07/19 11/08/19 11/08/19 21:00 04:06 09:26 Troponin I 5.440 3.060 NT-Pro-B Natriuret Pep 43163 H 91523 H 11/09/19 11/10/19 11/11/19 04:24 04:00 04:12 Troponin I 3.120 2.490 NT-Pro-B Natriuret Pep 28174 H 8320 H 11/12/19 04:14 Troponin I 1.990 NT-Pro-B Natriuret Pep Impressions: Chest X-Ray 11/12/19 05:00 IMPRESSION: NO SIGNIFICANT INTERVAL CHANGE. Chest CT 11/12/19 18:55 IMPRESSION: 1. Borderline cardiomegaly. 2. Extensive ground-glass infiltrates. Nonspecific. May indicate chronic interstitial changes, interstitial edema, or atypical infectious/ inflammatory process. 3. Significant bilateral pleural effusions, right more than left. Assessment and Plan - Diagnosis (1) Non-ST elevation myocardial infarction (NSTEMI) Is this a current diagnosis for this admission?: Yes Plan: Continue aspirin, Lovenox 1 mg/kg subcutaneously every [address] Fowler's input appreciated. On Cardizem 60 mg p.o. every 6 hours. Eventual plan for nuclear stress test noted. 11/13/2019-patient is on treatment dose of Lovenox consultation with pharmacy is requested to adjust the dose to renal function. Patient is on Cardizem 60 mg every 6 hours, and aspirin. (2) Atrial fibrillation with RVR Is this a current diagnosis for this admission?: Yes Plan: Cardiology help appreciated. On Cardizem 60 mg p.o. every 6 hours. Will need to transition to oral anticoagulant. 11/13/2019-heart rate today is 91. Rate controlled. On Cardizem 60 mg p.o. every 6 hours. On a treatment dose of Lovenox. Cardiology on board. (3) Multilobar lung infiltrate Is this a current diagnosis for this admission?: Yes Plan: I doubt that this is an infectious pneumonia. Stop Zosyn/vancomycin after 7-day course. Patient reported diarrhea yesterday and started on L acidophilus. 11/13/2019-patient is presently on IV Zosyn and vancomycin. Chest x-ray/CT suggestive of bilateral pleural effusions with possible bilateral infiltrates versus chronic interstitial disease. Consultation with pulmonology is requested at this time. Coronavirus testing is negative. (4) COVID-19 ruled out by laboratory testing Is this a current diagnosis for this admission?: Yes (5) COPD (chronic obstructive pulmonary disease) Qualifiers: COPD type: emphysema Emphysema type: unspecified Qualified Code(s): J43.9 - Emphysema, unspecified Is this a current diagnosis for this admission?: No Plan: Despite his history of tobacco abuse, the patient reports that he has never been prescribed COPD maintenance medications. Additionally, ABG results are not consistent with hypercapnia at baseline. Consequently, I will discontinue DuoNeb and Pulmicort. 11/13/2019-on examination or at the time of examination patient is on BiPAP with 70% oxygen. Plan is to continue BiPAP on the as-needed basis. Pulmonology consult was requested. (6) PVD (peripheral vascular disease) Is this a current diagnosis for this admission?: Yes Plan: 11/13/2019-both lower extremities extremely cold to touch, on Lovenox treatment dose. Arterial Doppler is requested. - Time Anticipated Discharge Disposition: [facility] Anticipated Discharge Timeframe: within 72 hours
[2019-11-13 11:45] LABS: ARTERIAL BLOOD H2CO3 0.78 mmol/L (1.05-1.35); ARTERIAL BLOOD HCO3 16.4 mmol/L (20-24); ARTERIAL BLOOD O2 SATURATION 98.2 % (94-98); ARTERIAL BLOOD PCO2 25.8 mmHg (35-45); ARTERIAL BLOOD PH 7.42 (7.35-7.45); ARTERIAL BLOOD PO2 110.4 mmHg (80-100); ARTERIAL BLOOD TOTAL CO2 17.2 mmol/L (23-27)
[2019-11-13] MEDS ORDERED: FUROSEMIDE INJ/PF 20 MG/2 ML SDV IV ONE (11:45)
[2019-11-13 11:46] LABS: ARTERIAL BLOOD FIO2 70%
--- NOTE | 2019-11-13 12:02 | RADIOLOGY REPORT (SQ) ---
EXAM DESCRIPTION: CHEST SINGLE VIEW IMAGES COMPLETED DATE/TIME: 11/13/2019 11:50 am REASON FOR STUDY: Increased shortness of breath COMPARISON: 11/12/2019, 11/11/2019, 11/10/2019, 11/09/2019 EXAM PARAMETERS: NUMBER OF VIEWS: One view. TECHNIQUE: Single frontal radiographic view of the chest acquired. RADIATION DOSE: NA LIMITATIONS: None. FINDINGS: LUNGS AND PLEURA: Re- demonstration of diffuse mixed interstitial and airspace opacities. No new focal consolidation. Small bilateral pleural effusions persist. No pneumothorax. MEDIASTINUM AND HILAR STRUCTURES: No masses. Contour normal. HEART AND VASCULAR STRUCTURES: Heart normal in size. Normal vasculature. BONES: No acute findings. HARDWARE: None in the chest. OTHER: No other significant finding. IMPRESSION: Stable, persistent appearance of multifocal mixed interstitial and airspace opacities. No acute findings. No evidence of adverse trend. TECHNICAL DOCUMENTATION: JOB ID: [id number] 2010 [employer]- All Rights Reserved Reading location - IP/workstation name: [email or web address]
[2019-11-13] MEDS ORDERED: FUROSEMIDE INJ/PF 40 MG/4 ML SDV IV SCH (14:00)
[2019-11-13] MEDS ORDERED: AZITHROMYCIN 500 MG in DEXTROSE 5%-WATER 250 ML IV SCH (15:00)
[2019-11-13 15:24] LABS: C-REACTIVE PROTEIN 66.5 mg/L (<10.0)
[2019-11-13 16:03] VITALS: BP 116/77
[2019-11-13 16:12] LABS: APPEARANCE,URINE SLIGHTLY-CLOUDY; BILIRUBIN,URINE NEGATIVE (NEGATIVE); COLOR,URINE YELLOW; GLUCOSE, URINE NEGATIVE (NEGATIVE); KETONES,URINE NEGATIVE (NEGATIVE); LEUKOCYTE ESTERASE,URINE NEGATIVE (NEGATIVE); NITRITE,URINE NEGATIVE (NEGATIVE); PROTEIN,URINE NEGATIVE (NEGATIVE); URINE SPECIFIC GRAVITY 1.021; UROBILINOGEN,URINE NEGATIVE mg/dL (<2.0)
--- NOTE | 2019-11-13 16:22 | RADIOLOGY REPORT (SQ) ---
EXAM DESCRIPTION: ARTERIAL LOWER EXTREM BILAT IMAGES COMPLETED DATE/TIME: 11/13/2019 3:39 pm REASON FOR STUDY: pvd COMPARISON: None. TECHNIQUE: Dynamic and static harris scale and color images acquired of the lower extremity arteries. Additional selected spectral images recorded. LIMITATIONS: None. FINDINGS: RIGHT LEG: INFLOW ARTERIES: Not assessed. FEMORAL ARTERIES:Triphasic spectral waveforms in the common femoral, proximal profunda femoris, and t hroughout the superficial femoral artery ; the PSVs in the superficial femoral artery range from 0.3 to 0.6 m/sec. There is no stenosis. POPLITEAL ARTERY: Triphasic spectral waveforms in the popliteal artery with PST of 0.3 m/sec. There is no stenosis or aneurysm. PATENT TIBIOPERONEAL TRUNK AND 3 VESSEL RUNOFF: The distal posterior tibial and anterior tibial arter ies are patent with biphasic spectral waveforms. The dorsalis pedis is patent with monophasic spectr al waveforms and a PSV of 0.1 m/sec. OTHER: No other finding. LEFT LEG: INFLOW ARTERIES: Not assessed. FEMORAL ARTERIES: Triphasic spectral waveforms in the common femoral, proximal profunda femoris, and throughout the superficial femoral artery ; the PSVs in the superficial femoral artery range from 0.3 to 0.8 m/sec. There is no stenosis. POPLITEAL ARTERY: Aneurysm of the popliteal artery with eccentric mural thrombus ; the aneurysm deja ures 3.5 x 3.2 cm. PATENT TIBIOPERONEAL TRUNK AND 3 VESSEL RUNOFF: The distal posterior tibial and anterior tibial arter ies are occluded. The mid posterior tibial artery is patent with a PSV of 0.2 m/sec and biphasic spe ctral waveforms. The dorsalis pedis artery is occluded. OTHER: No other finding. IMPRESSION: 1. 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 2. 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 3. Other secondary findings as detailed above. TECHNICAL DOCUMENTATION: JOB ID: [id number] 2010 [employer]- All Rights Reserved Reading location - IP/workstation name: [email or web address]
--- NOTE | 2019-11-13 16:30 | RADIOLOGY REPORT (SQ) ---
EXAM DESCRIPTION: U/S RETROPERITON (RENAL/AORTA) IMAGES COMPLETED DATE/TIME: 11/13/2019 4:22 pm REASON FOR STUDY: abd aneurysm COMPARISON: None. TECHNIQUE: Static and dynamic grayscale images acquired of the aorta and stored on PACs. Selected co cira Doppler and spectral images recorded. LIMITATIONS: None. FINDINGS: AORTIC CALIBER MAXIMAL PROXIMAL: 2.6 cm. MID: 2.6 cm. DISTAL: 2.4 cm. ILIAC ARTERIES: Obscured by bowel gas. IMPRESSION: NO ABDOMINAL AORTIC ANEURYSM. COMMENT: Aortic aneurysm imaging followup: 2.6-2.9 cm Every 5 years* *Based upon the Society for Vascular Surgery Guidelines: J Vasc Surg. 2009 Oct;50(4 Suppl):S2-49 *For aortas of maximum diameter of 2.6-2.9 cm meeting the criteria for AAA (?1.5 x proximal normal se gment) TECHNICAL DOCUMENTATION: JOB ID: [id number] 2010 [employer]- All Rights Reserved Reading location - IP/workstation name: [email or web address]
--- NOTE | 2019-11-13 16:54 | PDOC TRANSFER SUMMARY ---
General Admission Date/PCP: 11/07/19 06:22 Resuscitation Status: Full Code - Transfer Diagnosis (1) Non-ST elevation myocardial infarction (NSTEMI) Is this a current diagnosis for this admission?: Yes (2) Atrial fibrillation with RVR Is this a current diagnosis for this admission?: Yes (3) Multilobar lung infiltrate Is this a current diagnosis for this admission?: Yes (4) COVID-19 ruled out by laboratory testing Is this a current diagnosis for this admission?: Yes (5) COPD (chronic obstructive pulmonary disease) Is this a current diagnosis for this admission?: No (6) PVD (peripheral vascular disease) Is this a current diagnosis for this admission?: Yes - Transfer Medications Home Medications: No Home Medications 11/07/19 Transfer Medications: Current Medications Aspirin (Aspirin 325 Mg Tablet) 325 mg PO DAILY [facility]OVEVA Stop: 12/09/19 13:59 Last Admin: 11/13/19 09:12 Dose: 325 mg Documented by: Diltiazem HCl (Cardizem 60 Mg Tablet) 60 mg PO Q6 [facility] Stop: 12/10/19 17:59 Last Admin: 11/13/19 11:39 Dose: 60 mg Documented by: Furosemide (Lasix Inj/Pf 40 Mg/4 Ml Sdv) 40 mg IV Q8 [facility] Stop: 12/13/19 13:59 Last Admin: 11/13/19 13:31 Dose: 40 mg Documented by: Piperacillin Sod/Tazobactam (Sod 3.375 gm/ Sodium Chloride) 100 mls @ 200 mls/hr IV Q6 GEN[facility]A Stop: 11/14/19 19:29 Last Infusion: 11/13/19 12:49 Dose: Infused Documented by: Vancomycin HCl 1,500 mg/ (Dextrose) 250 mls @ 166.667 mls/hr IV QHS [facility] Stop: 11/14/19 21:59 Last Infusion: 11/13/19 07:00 Dose: Infused Documented by: Azithromycin 500 mg/ Dextrose 250 mls @ 250 mls/hr IV DAILY GEN[facility]A Stop: 11/20/19 14:59 Last Infusion: 11/13/19 15:54 Dose: Infused Documented by: Lactobacillus Acidophilus (Bacid 250 Mg Tablet) 250 mg PO BID GEN[facility]EVA Stop: 12/10/19 17:59 Last Admin: 11/13/19 09:25 Dose: Not Given Documented by: Metoprolol Tartrate (Lopressor Inj/Pf 5 Mg/5 Ml Sdv) 5 mg IV Q6HP PRN PRN Reason: HR > 120. Stop: 12/09/19 12:02 Pantoprazole Sodium (Protonix [address] Tablet) 40 mg PO Q6AM [facility] Stop: 12/11/19 10:14 Last Admin: 11/13/19 06:24 Dose: 40 mg Documented by: Sodium Chloride (Saline Flush 2.5 Ml Monoject Prefil Syrin) 2.5 ml IV Q8 [facility] Stop: 12/07/19 13:59 Last Admin: 11/13/19 13:32 Dose: 2.5 ml Documented by: - Allergies Allergies/Adverse Reactions: No Known Allergies Allergy (Unverified 11/07/19 06:12) Hospital Course Hospital Course: 74-year-old gentleman with no known past medical history other than tobacco abuse of 1 pack/day since childhood as per his son. He has been active and independent and cares for his ailing . Patient developed shortness of breath, diffuse chest pain and myalgia over the past 24 hours and presented to the emergency department. SPO2 upon arrival was 60%. He was placed on BiPAP and has since dramatically improved his oxygenation (FiO2 100%). I was called by the emergency room physician to evaluate Mr. Bernal for possible admission to the intensive care unit. Chest x-ray shows bilateral patchy opacities consistent with pneumonia. Chest x-ray has similar pattern to that of previous COVID-19 patients. He has been admitted to the intensive care unit for acute hypoxemic respiratory failure in the setting of pneumonia possibly related to COVID-19. 11/08/19-Rapid COVID test negative. [facility] test pending. Overall no change 11/08: Monitor shows atrial fibrillation. Patient denies any history of atrial fibrillation. On the other hand, he also states that he is unaware of his irreg ular heartbeat. No chest pain at this time. He denies nausea/vomiting. He is on BiPAP 03/08, FiO2 35% during clinical interview. 11/09: Monitor continues to show atrial fibrillation, in and out of rapid ventricular response. Now on Cardizem 30 mg p.o. every 6 hours. SBP 64956. No chest pain. No nausea/vomiting. On nasal cannula. Blood cultures (11/06, 1 of 2 bottles) growing gram-positive oniel. 11/10: Monitor continues to show atrial fibrillation with rapid ventricular response. Currently on Cardizem 60 mg p.o. every 6 hours. Got 1 dose of digoxin 0.25 mg IV single dose yesterday. SBP 987092. No chest pain. No nausea/vomiting. On 6 LPM via nasal cannula. He is able to get out of bed to the commode and back. WBC 11.3. On empiric Zosyn/vancomycin. He has been afebrile throughout his entire hospitalization. 11/11: Atrial fibrillation with rapid ventricular response, on Cardizem 60 mg p.o. every 6 hours. SBP 277213. No chest pain. No nausea/vomiting. Denies shortness of breath. On 2.5 LPM via nasal cannula. WBC 11.4. Afebrile. On empiric Zosyn/vancomycin. 11/13/2019-at the time of my examination patient is on BiPAP with 70% oxygen. CT scan done yesterday indicated cardiomegaly, extensive groundglass infiltrates which are nonspecific. May indicate chronic interstitial changes, interstitial edema or atypical infectious/inflammatory process. Consultation with the pulmonology is requested. On examination both feet are cold to touch. Arterial Doppler is requested. Called pharmacy to adjust the Lovenox treatment dose at this time. (1) Non-ST elevation myocardial infarction (NSTEMI) Is this a current diagnosis for this admission?: Yes Plan: Continue aspirin, Lovenox 1 mg/kg subcutaneously every [address] Fowler's input appreciated. On Cardizem 60 mg p.o. every 6 hours. Eventual plan for nuclear stress test noted. 11/13/2019-patient is on treatment dose of Lovenox consultation with pharmacy is requested to adjust the dose to renal function. Patient is on Cardizem 60 mg every 6 hours, and aspirin. 11/13/2019-Lovenox is on hold because platelet count is 80,000. Patient is asymptomatic denies any chest pains. Receiving Cardizem 60 mg p.o. every 6 hours, aspirin. (2) Atrial fibrillation with RVR Is this a current diagnosis for this admission?: Yes Plan: Cardiology help appreciated. On Cardizem 60 mg p.o. every 6 hours. Will need to transition to oral anticoagulant. 11/13/2019-heart rate today is 91. Rate controlled. On Cardizem 60 mg p.o. every 6 hours. On a treatment dose of Lovenox. Cardiology on board. (3) Multilobar lung infiltrate Is this a current diagnosis for this admission?: Yes Plan: I doubt that this is an infectious pneumonia. Stop Zosyn/vancomycin after 7-day course. Patient reported diarrhea yesterday and started on L acidophilus. 11/13/2019-patient is presently on IV Zosyn and vancomycin. Chest x-ray/CT suggestive of bilateral pleural effusions with possible bilateral infiltrates versus chronic interstitial disease. Consultation with pulmonology is requested at this time. Coronavirus testing is negative. (4) COVID-19 ruled out by laboratory testing Is this a current diagnosis for this admission?: Yes (5) COPD (chronic obstructive pulmonary disease) Qualifiers: COPD type: emphysema Emphysema type: unspecified Qualified Code(s): J43.9 - Emphysema, unspecified Is this a current diagnosis for this admission?: No Plan: Despite his history of tobacco abuse, the patient reports that he has never been prescribed COPD maintenance medications. Additionally, ABG results are not consistent with hypercapnia at baseline. Consequently, I will discontinue DuoNeb and Pulmicort. 11/13/2019-on examination or at the time of examination patient is on BiPAP with 70% oxygen. Plan is to continue BiPAP on the as-needed basis. Pulmonology consult was requested. (6) PVD (peripheral vascular disease) Is this a current diagnosis for this admission?: Yes Plan: 11/13/2019-both lower extremities extremely cold to touch, on Lovenox treatment dose. Arterial Doppler is requested. Discussed the ultrasound report with the radiologist's impression is patient has 3.5 cm left popliteal aneurysm with mural thrombus. I discussed the case with the workplace rehabilitation officer Dr. Fairchild and the radiologist again the recommendation is to discuss the case with vascular surgeon in [place]. I spoke to Dr. Chalo Powell he agreed to do the consultation but I requested me to talk to marble coper. I spoke to Dr. Pierre explained to him that patient is still on BiPAP on 70% oxygen, CT scan chest x-ray showing fluffy infiltrates suggestive of atypical pneumonia and vancomycin Zosyn, azithromycin and echocardiogram is normal, left leg with 3.5 popliteal artery aneurysm with mural thrombus. On examination both feet still cold to touch. Patient is accepted by Luis [facility]o to [place]. We sincerely appreciate his help. Physical Exam Vital Signs: Temp Pulse Resp BP Pulse Ox 97.4 F 61 29 H 116/77 92 11/13/19 15:43 11/13/19 15:43 11/13/19 16:40 11/13/19 15:43 11/13/19 15:43 Intake & Output 11/12/19 11/13/19 11/14/19 06:59 06:59 06:59 Intake Total 900 1340 700 Output Total 850 100 150 Balance 50 1240 550 Weight 83.4 kg 83.5 kg General appearance: PRESENT: cooperative, mild distress, well-developed Head exam: PRESENT: atraumatic Eye exam: PRESENT: conjunctiva pale, PERRLA Mouth exam: PRESENT: dry mucosa Teeth exam: PRESENT: poor dentation Neck exam: ABSENT: carotid bruit, JVD, lymphadenopathy, thyromegaly Respiratory exam: PRESENT: crackles, decreased breath sounds, other - Patient is still on BiPAP at 70% oxygen. Cardiovascular exam: PRESENT: irregular rhythm GI/Abdominal exam: PRESENT: normal bowel sounds, soft. ABSENT: distended, guarding, mass, organolmegaly, rebound, tenderness Rectal exam: PRESENT: deferred Gentrourinary exam: PRESENT: indwelling catheter Extremities exam: PRESENT: other - Both feet are cold to touch. Patient feels the sensations. No calf tenderness present. Neurological exam: PRESENT: alert, awake, oriented to person, oriented to place, oriented to time, oriented to situation, CN II-XII grossly intact. ABSENT: motor sensory deficit Psychiatric exam: PRESENT: appropriate affect, normal mood. ABSENT: homicidal ideation, suicidal ideation Results Laboratory Results: 11/13/19 05:56 11/13/19 05:56 11/13/19 11/13/19 11/13/19 05:56 05:56 11:35 WBC 15.4 H RBC 4.84 Hgb 15.3 Hct 46.1 MCV 95 MCH 31.6 MCHC 33.1 RDW 15.0 H Plt Count 80 L Seg Neutrophils % Not Reportable Carbonic Acid 0.78 L HCO3/H2CO3 Ratio 21:1 ABG pH 7.42 ABG pCO2 25.8 L ABG pO2 110.4 H ABG HCO3 16.4 L ABG O2 Saturation 98.2 H ABG Base Excess -6.0 FiO2 70% Sodium 136.9 L Potassium 5.4 H Chloride 104 Carbon Dioxide 21 L Anion Gap 12 BUN 61 H Creatinine 1.51 H Est GFR ( Amer) 55 L Glucose 137 H Calcium 8.1 L Magnesium 2.8 H C-Reactive Protein Urine Color Urine Appearance Urine pH Ur Specific Hammond Urine Protein Urine Glucose (UA) Urine Ketones Urine Blood Urine Nitrite Ur Leukocyte Esterase Urine WBC (Auto) Urine RBC (Auto) 11/13/19 11/13/19 13:39 15:30 WBC RBC Hgb Hct MCV MCH MCHC RDW Plt Count Seg Neutrophils % Carbonic Acid HCO3/H2CO3 Ratio ABG pH ABG pCO2 ABG pO2 ABG HCO3 ABG O2 Saturation ABG Base Excess FiO2 Sodium Potassium Chloride Carbon Dioxide Anion Gap BUN Creatinine Est GFR ( Amer) Glucose Calcium Magnesium C-Reactive Protein 66.5 H Urine Color YELLOW Urine Appearance SLIGHTLY-CLOUDY Urine pH 5.0 Ur Specific Hammond 1.021 Urine Protein NEGATIVE Urine Glucose (UA) NEGATIVE Urine Ketones NEGATIVE Urine Blood NEGATIVE Urine Nitrite NEGATIVE Ur Leukocyte Esterase NEGATIVE Urine WBC (Auto) 1 Urine RBC (Auto) 1 11/07/19 05:45 Blood Blood Culture (PCR) - Final 11/07/19 05:45 Blood Blood Culture - Final Bacillus Sp. Not Anthracis 11/07/19 11/07/19 11/07/19 06:00 11:12 20:13 Troponin I 2.060 6.020 Cancelled NT-Pro-B Natriuret Pep [id number] H Cancelled 11/07/19 11/08/19 11/08/19 21:00 04:06 09:26 Troponin I 5.440 3.060 NT-Pro-B Natriuret Pep 89779 H 15287 H 11/09/19 11/10/19 11/11/19 04:24 04:00 04:12 Troponin I 3.120 2.490 NT-Pro-B Natriuret Pep 62877 H 8320 H 11/12/19 04:14 Troponin I 1.990 NT-Pro-B Natriuret Pep Impressions: Chest CT 11/12/19 18:55 IMPRESSION: 1. Borderline cardiomegaly. 2. Extensive ground-glass infiltrates. Nonspecific. May indicate chronic interstitial changes, interstitial edema, or atypical infectious/ inflammatory process. 3. Significant bilateral pleural effusions, right more than left. Lower Extremity Ultrasound 11/13/19 00:00 IMPRESSION: 1. 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 2. 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 3. Other secondary findings as detailed above. Renal Ultrasound 11/13/19 00:00 IMPRESSION: NO ABDOMINAL AORTIC ANEURYSM. Chest X-Ray 11/13/19 11:00 IMPRESSION: Stable, persistent appearance of multifocal mixed interstitial and airspace opacities. No acute findings. No evidence of adverse trend. Plan Discharge Plan: Patient is accepted to [facility]. Time Spent: Greater than 30 Minutes
--- NOTE | 2019-11-13 20:53 | Progress Note ---
Provider Note Provider Note: CARDIOLOGY PROGRESS NOTE by Dr. Calos Pendleton on 11/13/2019. OBJECTIVE: The patient is more short of breath and requiring BiPAP regularly. Note if he is taken off the BiPAP the patient saturations go down. The patient is on FiO2 70% on the BiPAP but with the his ABG showing an normal pH of 7.429 good PCO2 and PO2. His CT scan of the chest yesterday without contrast shows a interstitial and alveolar pattern of pneumonia. There is also significant bilateral pleural effusions. The patient's leg is also cool and dusky and mildly cyanotic. The patient denies any pain in his legs. The leg pulses are difficult to palpate and the femorals are diminished. Also the patient's platelets are coming down and hence the patient's Lovenox has been discontinued and will start on a direct thrombin inhibitor due to the concern of the patient having heparin induced thrombocytopenia. The patient denies any chest pain discomfort. Continues to be in atrial fibrillation. There is no TIA CVA. The patient denies cough or sputum production. PHYSICAL EXAMINATION: The patient is of thin build in no acute distress. Selected Entries 11/13/19 11/13/19 11:37 15:43 Temperature 97.5 F 97.4 F Temperature Axillary Axillary Source Pulse Rate 58 L 61 Respiratory 29 H 42 H Rate Blood Pressure 102/81 116/77 Blood Pressure 88 90 Mean BP Location Right Arm Right Arm BP Position Supine Supine O2 Sat by Pulse 92 Oximetry Oxygen Delivery Bipap Bipap Method Percent of 70 Oxygen Head: Is atraumatic normocephalic. EYES: Pupils are equal round regular reactive light and accommodation. ENT is negative. Neck. Supple. There is there is no JVD. Carotids are equal there is no bruits. There is no lymphadenopathy. Lungs: There is no accessory muscle respiration use. Trachea central. There is a few dry coarse crackles in the right mid zone. There is dullness on percussion and absent breath sounds in both bases. There is diminished air entry and prolonged expiration. There is no rales of CHF. On percussion there is hyperresonance. HEART: S1-S2 is heard. S1 is of variable intensity. There is no S3 gallop. There is no S4 gallop.. Systolic murmur left sternal border and the apex there is no rub. There is murmur of mitral regurgitation tricuspid regurgitation present. There is no aortic stenosis murmur. ABDOMEN: Soft. Nontender there is no hepatosplenomegaly. Bowel sounds are well heard. EXTREMITIES: Femorals are creased. There is no femoral bruits. Leg pulses not felt. The lower extremity is cool there is some degree of cyanosis. Capillary refill is slowed bilaterally.. There is trace pedal edema. There is no femoral bruits. There is no lubbing. There is no DVT or cellulitis. There is no calf tenderness. 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 PSYCHIATRIC: The patient judgment insight are intact his affect is normal. Chest X-Ray 11/07/19 00:00 IMPRESSION: Bilateral pulmonary infiltrates with no significant interval change Chest X-Ray 11/07/19 05:25 IMPRESSION: Mixed interstitial and airspace opacities bilaterally could reflect pulmonary edema or pneumonia copyright 2011 [employer]- All Rights Reserved Chest X-Ray 11/08/19 06:00 IMPRESSION: STABLE APPEARANCE OF THE CHEST. Chest X-Ray 11/10/19 00:00 IMPRESSION: No significant change. Chest X-Ray 11/11/19 05:00 IMPRESSION: Stable patchy bilateral airspace disease, greatest within the upper lobes, and small bilateral effusions. Chest X-Ray 11/12/19 05:00 IMPRESSION: NO SIGNIFICANT INTERVAL CHANGE. Chest CT 11/12/19 18:55 IMPRESSION: 1. Borderline cardiomegaly. 2. Extensive ground-glass infiltrates. Nonspecific. May indicate chronic interstitial changes, interstitial edema, or atypical infectious/ inflammatory process. 3. Significant bilateral pleural effusions, right more than left. Lower Extremity Ultrasound 11/13/19 00:00 IMPRESSION: 1. 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 2. 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 3. Other secondary findings as detailed above. Renal Ultrasound 11/13/19 00:00 IMPRESSION: NO ABDOMINAL AORTIC ANEURYSM. Chest X-Ray 11/13/19 11:00 IMPRESSION: Stable, persistent appearance of multifocal mixed interstitial and airspace opacities. No acute findings. No evidence of adverse trend. Labs- All tests 24 hr 11/13/19 11/13/19 11/13/19 05:56 05:56 11:35 WBC 15.4 H RBC 4.84 Hgb 15.3 Hct 46.1 MCV 95 MCH 31.6 MCHC 33.1 RDW 15.0 H Plt Count 80 L Lymph % (Auto) Not Reportable [place] % (Auto) Not Reportable Eos % (Auto) Not Reportable Baso % (Auto) Not Reportable Absolute Neuts (auto) Not Reportable Absolute Lymphs (auto) Not Reportable Absolute Monos (auto) Not Reportable Absolute Eos (auto) Not Reportable Absolute Basos (auto) Not Reportable Total Counted 100 Seg Neutrophils % Not Reportable Seg Neuts % (Manual) 89 H Band Neutrophils % 1 L Lymphocytes % (Manual) 6 L Monocytes % (Manual) 4 Eosinophils % (Manual) 0 Basophils % (Manual) 0 Abs Neuts (Manual) 13.9 H Abs Lymphs (Manual) 0.9 Abs Monocytes (Manual) 0.6 Absolute Eos (Manual) 0.0 Abs Basophils (Manual) 0.0 Nucleated RBCs 12 Platelet Comment DECREASED Polychromasia 1+ Anisocytosis 1+ ESR Carbonic Acid 0.78 L HCO3/H2CO3 Ratio 21:1 ABG pH 7.42 ABG pCO2 25.8 L ABG pO2 110.4 H ABG HCO3 16.4 L ABG Total CO2 17.2 L ABG O2 Saturation 98.2 H ABG Base Excess -6.0 FiO2 70% Sodium 136.9 L Potassium 5.4 H Chloride 104 Carbon Dioxide 21 L Anion Gap 12 BUN 61 H Creatinine 1.51 H Est GFR ( Amer) 55 L Est GFR (MDRD) Non-Af 46 L Glucose 137 H Calcium 8.1 L Magnesium 2.8 H C-Reactive Protein Urine Color Urine Appearance Urine pH Ur Specific [place] Urine Protein Urine Glucose (UA) Urine Ketones Urine Blood Urine Nitrite Urine Bilirubin Urine Urobilinogen Ur Leukocyte Esterase Urine WBC (Auto) Urine RBC (Auto) U Hyaline Cast (Auto) Urine Mucus (Auto) Urine Ascorbic Acid Rheumatoid Factor Anti-Phospholip Syndrome 11/13/19 11/13/19 11/13/19 13:39 13:39 13:39 WBC RBC Hgb Hct MCV MCH MCHC RDW Plt Count Lymph % (Auto) [place] % (Auto) Eos % (Auto) Baso % (Auto) Absolute Neuts (auto) Absolute Lymphs (auto) Absolute Monos (auto) Absolute Eos (auto) Absolute Basos (auto) Total Counted Seg Neutrophils % Seg Neuts % (Manual) Band Neutrophils % Lymphocytes % (Manual) Monocytes % (Manual) Eosinophils % (Manual) Basophils % (Manual) Abs Neuts (Manual) Abs Lymphs (Manual) Abs Monocytes (Manual) Absolute Eos (Manual) Abs Basophils (Manual) Nucleated RBCs Platelet Comment Polychromasia Anisocytosis ESR 12 Carbonic Acid HCO3/H2CO3 Ratio ABG pH ABG pCO2 ABG pO2 ABG HCO3 ABG Total CO2 ABG O2 Saturation ABG Base Excess FiO2 Sodium Potassium Chloride Carbon Dioxide Anion Gap BUN Creatinine Est GFR ( Amer) Est GFR (MDRD) Non-Af Glucose Calcium Magnesium C-Reactive Protein 66.5 H Urine Color Urine Appearance Urine pH Ur Specific [place] Urine Protein Urine Glucose (UA) Urine Ketones Urine Blood Urine Nitrite Urine Bilirubin Urine Urobilinogen Ur Leukocyte Esterase Urine WBC (Auto) Urine RBC (Auto) U Hyaline Cast (Auto) Urine Mucus (Auto) Urine Ascorbic Acid Rheumatoid Factor < 8.6 Anti-Phospholip Syndrome Cancelled 11/13/19 15:30 WBC RBC Hgb Hct MCV MCH MCHC RDW Plt Count Lymph % (Auto) [place] % (Auto) Eos % (Auto) Baso % (Auto) Absolute Neuts (auto) Absolute Lymphs (auto) Absolute Monos (auto) Absolute Eos (auto) Absolute Basos (auto) Total Counted Seg Neutrophils % Seg Neuts % (Manual) Band Neutrophils % Lymphocytes % (Manual) Monocytes % (Manual) Eosinophils % (Manual) Basophils % (Manual) Abs Neuts (Manual) Abs Lymphs (Manual) Abs Monocytes (Manual) Absolute Eos (Manual) Abs Basophils (Manual) Nucleated RBCs Platelet Comment Polychromasia Anisocytosis ESR Carbonic Acid HCO3/H2CO3 Ratio ABG pH ABG pCO2 ABG pO2 ABG HCO3 ABG Total CO2 ABG O2 Saturation ABG Base Excess FiO2 Sodium Potassium Chloride Carbon Dioxide Anion Gap BUN Creatinine Est GFR ( Amer) Est GFR (MDRD) Non-Af Glucose Calcium Magnesium C-Reactive Protein Urine Color YELLOW Urine Appearance SLIGHTLY-CLOUDY Urine pH 5.0 Ur Specific [place] 1.021 Urine Protein NEGATIVE Urine Glucose (UA) NEGATIVE Urine Ketones NEGATIVE Urine Blood NEGATIVE Urine Nitrite NEGATIVE Urine Bilirubin NEGATIVE Urine Urobilinogen NEGATIVE Ur Leukocyte Esterase NEGATIVE Urine WBC (Auto) 1 Urine RBC (Auto) 1 U Hyaline Cast (Auto) 2 Urine Mucus (Auto) RARE Urine Ascorbic Acid NEGATIVE Rheumatoid Factor Anti-Phospholip Syndrome IMPRESSION/RECOMMENDATION: 1. Acute respiratory failure with worsening infiltrates on the x-ray and CT scan with increasing respiratory difficulty: Consider interstitial pneumonitis/pneumonia secondary to collagen vascular disease. Continue BiPAP. 2. Peripheral vascular disease. Will compromise bilateral leg compensation with left popliteal aneurysm with clot. In view of the patient's low platelets would recommend starting the patient on Agartoootroban. 3. Decreasing platelets possible HIT. We will stop the patient's Lovenox and/start the patient on argatroban. 4. Elevated troponin secondary to supply demand mismatch. Doubt non-ST elevation [place]. 5. Abnormal EKG: Secondary to hypoxemia and tachycardia versus secondary to a fixed lesion or combined lesion and hypoxemia and tachycardia causing ischemic EKG changes. Recommend starting the patient on aspirin 325 mg p.o. daily. 6. NEW onset ATRIAL fibrillation: No recurrence of junctional tachycardia. At present patient with a persistent trial fibrillation. Continue Cardizem 60 mg p.o. every 6 hours and intermittent digoxin IV dose. At present Lovenox is being discontinued due to the patient's possible HIT due to low platelets. 7. Pneumonia Patient on antibiotics. The patient is CT scan of the chest x-ray more consistent with interstitial pneumonia infective versus secondary to collagen vascular disease.. Collagen-vascular work-up being done. The patient is COVID19 test were negative x2 8. Severe pulmonary hypertension: Suspect this will be much less once the pneumonia is resolved. Cardizem may help this to a certain extent. We will also later start the patient on a PANCHO inhibitor or ARB. 9. Moderately severe tricuspid [id number].. COPD by exam 10. History of tobacco abuse: Tobacco cessation counseling done 3 minutes spent on this. 11.. Moderate eccentric mitral regurgitation: 12. The patient's corrected Oumar Vascor is 1. But would strongly recommend chronic anticoagulation, since the patient has no risks of increased bleeding complications. 1 3. Worsening renal insufficiency: Since expect that this will improve once her initial insult of the pneumonia and atrial fibrillation with controlled ventricular response. 14. Bilateral pleural effusions. Will give the patient Lasix intravenously. If no improvement in the patient may need a thoracentesis later on. Note collagen-vascular blood work has been sent. Patient case is complicated recommend transferring to tertiary care center. The hospitalist is already arranged for transfer [facility] in [place].. We will sign off. Try to speak to the patient's son on the telephone the second time. Earlier had a conversation. But the second time was unsuccessful. Unable to leave a message due to the patient's voicemail being full. Medical decision making is high complexity. 45 minutes spent as patient is on for more than 50% time spent in direct patient care.
[2019-11-13] MEDS ORDERED: METHYLPREDNISOLONE INJ 40 MG/1 ML SDV IV SCH (22:00)
[2019-11-14] MEDS ORDERED: AZITHROMYCIN INJ 500 MG VIAL IV SCH (10:00)
[2019-11-15 16:13] LABS: HEPARIN ANTI-XA 0.76 IU/mL (.)
[2019-11-15 17:36] LABS: CYTOPLASMIC (C-ANCA) <1:20 titer (Neg:<1:20)
[2019-11-15 18:46] LABS: HEPARIN INDUCED PLATELET AB 0.093 OD (0.000-0.40)
[2019-11-15 18:46] LABS: ATYPICAL PANCA <1:20 titer (Neg:<1:20)
[2019-11-17 15:42] LABS: ANTICARDIOLIPIN IGA AB <9 APL U/mL (0-11); ANTICARDIOLIPIN IGG AB <9 GPL U/mL (0-14); ANTICARDIOLIPIN IGM AB <9 MPL U/mL (0-12)
== END 2019-11-13 20:15 | disposition short-term general hospital (02) | DRG 280 ==
LOC: ER 04:53 → EH 06:22 → ICU 06:48 → 3W 11-12 19:05
PROVIDERS: ADMIT Anesthesiology; ATTEND Internal Medicine
DX: I21.4 Non-ST elevation (NSTEMI) myocardial infarction (principal); J18.9 Pneumonia, unspecified organism; J96.01 Acute respiratory failure with hypoxia; I23.6 Thrombosis of atrium, auricular appendage, and ventricle as current complications following acute myocardial infarction; I48.91 Unspecified atrial fibrillation; Z20.828 Contact with and (suspected) exposure to other viral communicable diseases; F17.210 Nicotine dependence, cigarettes, uncomplicated; E86.0 Dehydration; I27.20 Pulmonary hypertension, unspecified; I07.1 Rheumatic tricuspid insufficiency; J43.9 Emphysema, unspecified; I73.9 Peripheral vascular disease, unspecified
CPT/HCPCS: 36415; 36600; 71045; 71250; 76770; 80048; 80053; 80162; 80202; 81001; 82565; 82803; 83605; 83735; 83880; 84100; 84484; 85025; 85027; 85520; 85597; 85598; 85610; 85613; 85652; 85730; 85732; 86021; 86022; 86038; 86140; 86146; 86147; 86148; 86431; 86849; 87040; 87077; 87150; 87635; 93005; 93010; 93306; 93925; 94640; 94660; 99291; C9803; J0330; J0456; J1100; J1160; J1644; J1650; J1940; J2060; J2543; J3370; J3490; J7030; J7050; J7060; J7120